=== PATIENT | female | born 1950 | race Caucasian/White ===

== ENCOUNTER → 2016-08-25 | Outpatient (CLI) | payer MEDICARE ==
--- NOTE | 2016-08-25 15:51 | US ---
EXAMINATION TYPE: US abdomen complete DATE OF EXAM: 08/25/2016 COMPARISON: NONE CLINICAL HISTORY: R10.9 Abdominal pain, K81.9 Cholecystitis. Abd pain, h/o liver cysts EXAM MEASUREMENTS: Liver Length: 13.1 cm Gallbladder Wall: 0.2 cm CBD: 0.3 cm Spleen: 7.7 cm Right Kidney: 9.6 x 3.4 x 3.8 cm Left Kidney: 8.8 x 5.1 x 6.2 cm Pancreas: wnl Liver: multiple cystic areas seen, largest left lobe cyst with septation = 2.2cm , largest right lob e = 2.4cm Gallbladder: wnl Evidence for sonographic Crabtree's sign: no CBD: wnl Spleen: limited views appeared wnl, granulomas seen Right Kidney: wnl Left Kidney: wnl Upper IVC: wnl Abd Aorta: wnl IMPRESSION: 1. Hepatic cysts. 2. Suspected calcified granuloma within the spleen
== END | disposition home or self-care (01) ==
LOC: RADUSWWP 07:51
PROVIDERS: ATTEND Family Medicine
DX: K76.89 Other specified diseases of liver (principal); R10.9 Unspecified abdominal pain
CPT/HCPCS: 76700

== ENCOUNTER 2016-09-16 20:15 | Emergency (ER) | payer MEDICARE ==
[2016-09-16] MEDS ORDERED: DIPH,PERTUS(ACELL)TETVAC-LF 0.5 ML VIAL IM ONE (21:08)
--- NOTE | 2016-09-16 21:09 | ED ---
General Adult HPI - General Chief complaint: Wound/Laceration Stated complaint: head lac Time Seen by Provider: 09/16/16 20:38 Source: patient, RN notes reviewed Mode of arrival: ambulatory Limitations: no limitations - History of Present Illness Initial comments: Patient 66-year-old female who presents emergency room today with a chief complaint of laceration top of her head. She does admit that a cabinet came off the wall. The top of the head causing laceration. She states there was no loss conscious. She denies any headache. She does admit to cut to the right side of the head. She is unsure of her tetanus status. Patient denies any recent fever, chills, shortness of breath, chest pain, back pain, abdominal pain , nausea or vomiting, numbness or tingling, dysuria or hematuria, constipation or diarrhea, headaches or visual changes, or any other complaints. - Related Data Home Medications Medication Instructions Recorded Confirmed Naproxen 500 mg PO Q12HR 01/28/14 11/08/14 ALPRAZolam [Xanax] 0.25 mg PO BID PRN 11/08/14 11/08/14 Lisinopril-Hctz 20-25 mg 20 mg PO HS 11/08/14 11/08/14 [Zestoretic 20-25] Previous Rx's Medication Instructions Recorded EPINEPHrine [Epipen 2-Maxime] 0.3 mg IM ONCE PRN #2 pkg 09/04/14 predniSONE 60 mg PO DAILY #15 tab 09/04/14 diphenhydrAMINE [Benadryl] 50 mg PO QID PRN #20 capsule 11/08/14 methylPREDNISolone [Medrol] 1 pack PO DIRECTED #1 tab.ds.pk 11/08/14 Allergies Allergy/AdvReac Type Severity Reaction Status Date / Time morphine Allergy Itching Verified 09/16/16 20:36 venom-honey bee Allergy Swelling Verified 09/16/16 20:36 [bee venom (honey bee)] Review of Systems ROS Statement: Those systems with pertinent positive or pertinent negative responses have been documented in the HPI. ROS Other: All systems not noted in ROS Statement are negative. Past Medical History Past Medical History: Hypertension History of Any Multi-Drug Resistant Organisms: None Reported Past Surgical History: Back Surgery, Joint Replacement, Orthopedic Surgery Past Psychological History: No Psychological Hx Reported Smoking Status: Never smoker Past Alcohol Use History: Daily Past Drug Use History: None Reported General Exam - General Exam Comments Initial Comments: General: The patient is awake and alert, in no distress, and does not appear acutely ill. Eye: Pupils are equal, round and reactive to light, extra-ocular movements are intact. No nystagmus. There is normal conjunctiva bilaterally. No signs of icterus. Ears, nose, mouth and throat: There are moist mucous membranes and no oral lesions. Neck: The neck is supple, there is no tenderness or JVD. Cardiovascular: There is a regular rate and rhythm. No murmur, rub or gallop is appreciated. Respiratory: Lungs are clear to auscultation, respirations are non-labored, breath sounds are equal. No wheezes, stridor, rales, or rhonchi. Musculoskeletal: Normal ROM, no tenderness. Strength 5/5. Sensation intact. Pulses equal bilaterally 2+. Neurological: A&O x 3. CN II-XII intact, There are no obvious motor or sensory deficits. Coordination appears grossly intact. Speech is normal. Skin: 2 cm linear laceration to the right side top of the head. No active bleeding. It is approximated. Psychiatric: Cooperative, appropriate mood & affect, normal judgment. Limitations: no limitations Course Vital Signs 09/16/16 20:33 Temperature 98.0 F Pulse Rate 67 Respiratory 18 Rate Blood Pressure 211/103 O2 Sat by Pulse 100 Oximetry Medical Decision Making - Medical Decision Making Options were discussed with patient about roderick here in the emergency room. She has declined. The wound edges are approximated. Patient is advised watch for any signs of infection. Advised return for any other concerns. Patient's blood pressure remains elevated here in the emergency room. She does take lisinopril hydrochlorothiazide that she takes at night. States she has not taken this time. Blood pressure remained elevated. Was discussed with patient about taking something here in emergency room. She has declined. States she would like to just take her medication she gets at home. She is advised to have close follow-up with family doctor have repeat blood pressure in the next 1-2 days. Disposition Clinical Impression: Laceration, Hypertension Disposition: HOME SELF-CARE Condition: Good Instructions: Laceration (ED) Additional Instructions: Please watch for any signs of infection which may include increased pain, swelling, redness, fever or chills. Please return to emergency room for any signs of infection. Please have blood pressure rechecked with family doctor over the next 1-2 days. Please return for any other concerns. Referrals: Yomi Montelongo DO [Primary Care Provider] - 1-2 days Time of Disposition: 21:14
[2016-09-16 21:52] VITALS: BP 127/62; PULSE 72; RESP 16; TEMP 97.8
== END 2016-09-16 21:40 | disposition home or self-care (01) ==
LOC: EC 20:15
DX: S01.01XA Laceration without foreign body of scalp, initial encounter (principal); W22.8XXA Striking against or struck by other objects, initial encounter; Z23 Encounter for immunization; Z79.899 Other long term (current) drug therapy; Z88.5 Allergy status to narcotic agent; I10 Essential (primary) hypertension
CPT/HCPCS: 90471; 90715; 99282

== ENCOUNTER 2016-09-30 17:55 | Emergency (ER) | payer MEDICARE ==
[2016-09-30 18:01] VITALS: RESP 18
[2016-09-30] MEDS ORDERED: diphenhydrAMINE 50 MG/ML 1 ML VIAL IVP STA (18:08)
[2016-09-30] MEDS ORDERED: FAMOTIDINE 20 MG/2 ML VIAL IV STA (18:08)
[2016-09-30] MEDS ORDERED: methylPREDNISolone SOD SUCCI 125 MG/2 ML VIAL IV STA (18:08)
--- NOTE | 2016-09-30 18:22 | ED ---
General Adult HPI - General Chief complaint: Allergic Reaction Stated complaint: BEE STING, ALLERGIC HAD EPI SHOT Time Seen by Provider: 09/30/16 18:08 Source: patient, RN notes reviewed Mode of arrival: wheelchair Limitations: no limitations - History of Present Illness Initial comments: Patient 66-year-old female who presents emergency room today with a chief complaint of a bee sting to the left hand that occurred just prior to arrival. She does admit to having ALLERGIC to bees. She states that she had an EpiPen at home. Patient states she was on her back area. She states she was stung through glove. She states typical off when into the house and checked her EpiPen. Patient states she is experiencing some itching to the hands. She admits to some numbness sensation to her tongue. She denies any difficulty breathing or swallowing time. Denies any other complaints. Patient denies any recent fever, chills, shortness of breath, chest pain, back pain, abdominal pain , nausea or vomiting, numbness or tingling, dysuria or hematuria, constipation or diarrhea, headaches or visual changes, or any other complaints. - Related Data Home Medications Medication Instructions Recorded Confirmed Naproxen 500 mg PO Q12HR 01/28/14 09/30/16 ALPRAZolam [Xanax] 0.5 mg PO HS 09/30/16 09/30/16 Estradiol [Estrace] 1 mg PO HS 09/30/16 09/30/16 Lisinopril [Zestril] 20 mg PO HS 09/30/16 09/30/16 Omeprazole 40 mg PO HS 09/30/16 09/30/16 Previous Rx's Medication Instructions Recorded EPINEPHrine [Epipen 2-Maxime] 0.3 mg IM ONCE PRN #2 pkg 09/04/14 EPINEPHrine [Epipen 2-Maxime] 0.3 mg IM ONCE PRN #1 ml 09/30/16 Famotidine [Pepcid] 20 mg PO BID #20 tablet 09/30/16 diphenhydrAMINE [Benadryl] 1 - 2 tab PO Q6HR PRN #30 capsule 09/30/16 predniSONE 60 mg PO DAILY 5 Days 09/30/16 Allergies Allergy/AdvReac Type Severity Reaction Status Date / Time morphine Allergy Itching Verified 09/30/16 18:39 venom-honey bee Allergy Swelling Verified 09/30/16 18:39 [bee venom (honey bee)] Review of Systems ROS Statement: Those systems with pertinent positive or pertinent negative responses have been documented in the HPI. ROS Other: All systems not noted in ROS Statement are negative. Past Medical History Past Medical History: GERD/Reflux, Hypertension History of Any Multi-Drug Resistant Organisms: None Reported Past Surgical History: Back Surgery, Joint Replacement, Orthopedic Surgery Past Psychological History: No Psychological Hx Reported Smoking Status: Never smoker Past Alcohol Use History: Daily Past Drug Use History: None Reported General Exam - General Exam Comments Initial Comments: General: The patient is awake and alert, Anxious. Eye: Pupils are equal, round and reactive to light, extra-ocular movements are intact. No nystagmus. There is normal conjunctiva bilaterally. No signs of icterus. Ears, nose, mouth and throat: There are moist mucous membranes and no oral lesions. No lip swelling. No tongue swelling. Neck: The neck is supple, there is no tenderness or JVD. Cardiovascular: There is a regular rate and rhythm. No murmur, rub or gallop is appreciated. Respiratory: Lungs are clear to auscultation, respirations are non-labored, breath sounds are equal. No wheezes, stridor, rales, or rhonchi. Musculoskeletal: Normal ROM, no tenderness. Strength 5/5. Sensation intact. Pulses equal bilaterally 2+. Neurological: A&O x 3. CN II-XII intact, There are no obvious motor or sensory deficits. Coordination appears grossly intact. Speech is normal. Skin: Skin is warm and dry and no rashes or lesions are noted. Limitations: no limitations Course Vital Signs 09/30/16 09/30/16 09/30/16 17:58 18:19 18:25 Temperature 98.2 F Pulse Rate 82 89 Respiratory 18 18 Rate Blood Pressure 173/72 179/84 O2 Sat by Pulse 99 100 Oximetry 09/30/16 19:18 Temperature Pulse Rate 71 Respiratory 18 Rate Blood Pressure 175/86 O2 Sat by Pulse 98 Oximetry Medical Decision Making - Medical Decision Making Patient reexamined at this time shows no signs of distress. Does admit that all symptoms have resolved and feeling much better here in the emergency room. She was given IV Pepcid, Benadryl, cimetidine jaw. Patient's vitals are stable at this time. Patient will be discharged home with prescription for her EpiPen. Will be given prescriptions for steroids, and advised to continue Benadryl and Pepcid. Patient advised return to emergency room if any symptoms increase or worsen or for any other concerns. Disposition Clinical Impression: Allergic reaction to bee sting Disposition: HOME SELF-CARE Condition: Good Instructions: Anaphylaxis (ED) Additional Instructions: Please use medication as discussed. Please follow-up with family doctor in the next 2 days of symptoms have not improved. Please return to emergency room if the symptoms increase or worsen or for any other concerns. Prescriptions: diphenhydrAMINE [Benadryl] 1 - 2 tab PO Q6HR PRN #30 capsule PRN Reason: Allergic Reaction EPINEPHrine [Epipen 2-Maxime] 0.3 mg IM ONCE PRN #1 ml PRN Reason: Allergic Reaction Famotidine [Pepcid] 20 mg PO BID #20 tablet predniSONE 60 mg PO DAILY 5 Days Referrals: Yomi Montelongo DO [Primary Care Provider] - 1-2 days Time of Disposition: 19:42
[2016-09-30 19:20] VITALS: PULSE 71
[2016-09-30 20:00] VITALS: TEMP 97.9
[2016-09-30 20:03] VITALS: BP 187/82
== END 2016-09-30 20:05 | disposition home or self-care (01) ==
LOC: EC 17:55
DX: T63.441A Toxic effect of venom of bees, accidental (unintentional), initial encounter (principal); I10 Essential (primary) hypertension; K21.9 Gastro-esophageal reflux disease without esophagitis; Z79.1 Long term (current) use of non-steroidal anti-inflammatories (NSAID); Z79.899 Other long term (current) drug therapy; Z88.5 Allergy status to narcotic agent; Z91.030 Bee allergy status
CPT/HCPCS: 99283; 96374; 96375 ×2; J1200; J2930

== ENCOUNTER 2016-10-31 22:34 | Inpatient (IN) | payer MEDICARE ==
[2016-10-31] MEDS ORDERED: diphenhydrAMINE 50 MG/ML 1 ML VIAL IVP STA (22:50)
[2016-10-31] MEDS ORDERED: FAMOTIDINE 20 MG/2 ML VIAL IV STA (22:50)
[2016-10-31] MEDS ORDERED: methylPREDNISolone SOD SUCCI 125 MG/2 ML VIAL IV STA (22:50)
--- NOTE | 2016-10-31 22:54 | ED ---
Allergic Reaction HPI - General Chief complaint: Allergic Reaction Stated complaint: allergic reaction Time Seen by Provider: 10/31/16 22:41 Source: patient Mode of arrival: wheelchair Limitations: no limitations - History of Present Illness Initial Comments: This patient is 66-year-old woman who presents with complaint of itching to the bilateral upper extremities that she states started about 20-30 minutes ago. She states feels similar to the ALLERGY she gets when she has a bee sting though she denies being stung. She is not sure what exposures she may have had. The patient does state that she has had previous anaphylactic reaction to bee sting but again was not stung tonight. Patient denies cough, dyspnea, or wheezing. No swelling of the tongue or throat. MD Complaint: allergic reaction, hives -: minutes(s) Exposure: unknown Symptoms: rash, itching Severity: moderate Treatment Prior to Arrival: none Previous Allergy History: prior ED visit(s) - Related Data Home Medications Medication Instructions Recorded Confirmed Naproxen 500 mg PO Q12HR 01/28/14 11/01/16 ALPRAZolam [Xanax] 0.5 mg PO HS 09/30/16 11/01/16 Estradiol [Estrace] 1 mg PO HS 09/30/16 11/01/16 Lisinopril [Zestril] 20 mg PO HS 09/30/16 11/01/16 Omeprazole 40 mg PO HS 09/30/16 11/01/16 HYDROcodone/APAP 5-325MG [[place] 1 tab PO Q8H PRN 10/31/16 11/01/16 5-325] Previous Rx's Medication Instructions Recorded EPINEPHrine [Epipen 2-Maxime] 0.3 mg IM ONCE PRN #2 pkg 09/04/14 Allergies Allergy/AdvReac Type Severity Reaction Status Date / Time morphine Allergy Itching Verified 11/01/16 14:56 venom-honey bee Allergy Anaphylaxis Verified 11/01/16 14:56 [bee venom (honey bee)] Review of Systems ROS Statement: Those systems with pertinent positive or pertinent negative responses have been documented in the HPI. ROS Other: All systems not noted in ROS Statement are negative. Constitutional: Denies: fever, chills Respiratory: Denies: cough, dyspnea, wheezes Cardiovascular: Denies: chest pain, palpitations Gastrointestinal: Denies: abdominal pain, vomiting, diarrhea Skin: Reports: as per HPI, rash, pruritus Neurological: Denies: headache, weakness, numbness Past Medical History Past Medical History: GERD/Reflux, Hypertension History of Any Multi-Drug Resistant Organisms: None Reported Past Surgical History: Back Surgery, Joint Replacement, Orthopedic Surgery Past Psychological History: No Psychological Hx Reported Smoking Status: Never smoker Past Alcohol Use History: Daily Past Drug Use History: None Reported - Past Family History Mother Family Medical History: Diabetes Mellitus Additional Family Medical History / Comment(s): HEART DISEASE Son(s) Family Medical History: Diabetes Mellitus General Exam Limitations: no limitations General appearance: alert, in no apparent distress Head exam: Present: atraumatic, normocephalic ENT exam: Present: normal oropharynx, mucous membranes moist Neck exam: Present: normal inspection, full ROM Respiratory exam: Present: normal lung sounds bilaterally. Absent: respiratory distress, wheezes, rales, rhonchi, stridor Cardiovascular Exam: Present: regular rate, normal rhythm, normal heart sounds. Absent: systolic murmur, diastolic murmur, rubs, gallop Neurological exam: Present: alert Skin exam: Present: warm, dry, intact, urticaria (Mainly to the right arm, medial aspect of the upper portion of the arm. Patient has some excoriations there and is scratching during the exam.). Absent: cyanosis, diaphoretic, petechiae, pallor, mottled Course Vital Signs 10/31/16 11/01/16 11/01/16 22:36 00:38 01:00 Temperature 98.6 F Pulse Rate 100 72 64 Respiratory 22 16 14 Rate Blood Pressure 159/89 93/51 138/65 O2 Sat by Pulse 97 100 100 Oximetry 11/01/16 11/01/16 11/01/16 02:00 04:00 05:43 Temperature 98.8 F Pulse Rate 69 62 59 L Respiratory 14 14 16 Rate Blood Pressure 152/69 168/74 188/65 O2 Sat by Pulse 100 98 98 Oximetry Medical Decision Making - Medical Decision Making Patient is a 66-year-old woman who presented with chief complaint that she felt she was having ALLERGIC reaction. She had IV established and was given medications including antihistamine and steroid. The patient's blood pressure subsequently decreased to the 70s over 40s and she had dose of epinephrine. Following this episode she had some abdominal pain and did pass some small amount of dark blood. Computed tomography scan of the abdomen was obtained which does not reveal source of the bleeding. Patient admitted with GI consultation. Her blood pressure has stabilized following treatment. - Lab Data Result diagrams: 11/01/16 15:56 11/01/16 15:56 Lab Results 11/01/16 11/01/16 11/01/16 Range/Units 00:19 00:19 01:33 WBC (3.8-10.6) k/uL RBC (3.80-5.40) m/uL Hgb (11.4-16.0) gm/dL Hct (34.0-46.0) % MCV (80.0-100.0) fL MCH (25.0-35.0) pg MCHC (31.0-37.0) g/dL RDW (11.5-15.5) % Plt Count (150-450) k/uL Neutrophils % (Manual) % Band Neutrophils % % Lymphocytes % (Manual) % Monocytes % (Manual) % Eosinophils % (Manual) % Neutrophils # (Manual) (1.3-7.7) k/uL Lymphocytes # (Manual) (1.0-4.8) k/uL Monocytes # (Manual) (0-1.0) k/uL Eosinophils # (Manual) (0-0.7) k/uL Nucleated RBCs (0-0) /100 WBC Manual Slide Review Macrocytosis Sodium 141 (137-145) mmol/L Potassium 3.4 L (3.5-5.1) mmol/L Chloride 112 H (98-107) mmol/L Carbon Dioxide 15 L (22-30) mmol/L Anion Gap 14 mmol/L BUN 18 H (7-17) mg/dL Creatinine 0.80 (0.52-1.04) mg/dL Est GFR (MDRD) Af Amer >60 (>60 ml/min/1.73 sqM) Est GFR (MDRD) Non-Af >60 (>60 ml/min/1.73 sqM) Glucose 135 H (74-99) mg/dL Plasma Lactic Acid Alfonso (0.7-2.0) mmol/L Calcium 8.5 (8.4-10.2) mg/dL Total Bilirubin 0.5 (0.2-1.3) mg/dL AST 49 H (14-36) U/L ALT 40 (9-52) U/L Alkaline Phosphatase 111 (38-126) U/L Troponin I <0.012 (0.000-0.034) ng/mL Total Protein 5.9 L (6.3-8.2) g/dL Albumin 3.3 L (3.5-5.0) g/dL Urine Color Urine Appearance (Clear) Urine pH (5.0-8.0) Ur Specific [place] (1.001-1.035) Urine Protein (Negative) Urine Glucose (UA) (Negative) Urine Ketones (Negative) Urine Blood (Negative) Urine Nitrite (Negative) Urine Bilirubin (Negative) Urine Urobilinogen (<2.0) mg/dL Ur Leukocyte Esterase (Negative) Urine RBC (0-5) /hpf Urine WBC (0-5) /hpf Ur Squamous Epith Cells (0-4) /hpf Urine Bacteria (None) /hpf Urine Mucus (None) /hpf Stool Occult Blood Positive H (Negative) 11/01/16 11/01/16 11/01/16 Range/Units 02:39 02:39 04:15 WBC 15.4 H (3.8-10.6) k/uL RBC 4.03 (3.80-5.40) m/uL Hgb 13.6 (11.4-16.0) gm/dL Hct 41.1 (34.0-46.0) % MCV 102.0 H (80.0-100.0) fL MCH 33.8 (25.0-35.0) pg MCHC 33.1 (31.0-37.0) g/dL RDW 12.8 (11.5-15.5) % Plt Count 217 (150-450) k/uL Neutrophils % (Manual) 71 % Band Neutrophils % 15 % Lymphocytes % (Manual) 5 % Monocytes % (Manual) 9 % Eosinophils % (Manual) 1 % Neutrophils # (Manual) 13.20 H (1.3-7.7) k/uL Lymphocytes # (Manual) 0.77 L (1.0-4.8) k/uL Monocytes # (Manual) 1.39 H (0-1.0) k/uL Eosinophils # (Manual) 0.15 (0-0.7) k/uL Nucleated RBCs 0 (0-0) /100 WBC Manual Slide Review Performed Macrocytosis Slight Sodium (137-145) mmol/L Potassium (3.5-5.1) mmol/L Chloride (98-107) mmol/L Carbon Dioxide (22-30) mmol/L Anion Gap mmol/L BUN (7-17) mg/dL Creatinine (0.52-1.04) mg/dL Est GFR (MDRD) Af Amer (>60 ml/min/1.73 sqM) Est GFR (MDRD) Non-Af (>60 ml/min/1.73 sqM) Glucose (74-99) mg/dL Plasma Lactic Acid Alfonso 1.3 (0.7-2.0) mmol/L Calcium (8.4-10.2) mg/dL Total Bilirubin (0.2-1.3) mg/dL AST (14-36) U/L ALT (9-52) U/L Alkaline Phosphatase (38-126) U/L Troponin I (0.000-0.034) ng/mL Total Protein (6.3-8.2) g/dL Albumin (3.5-5.0) g/dL Urine Color Light Red Urine Appearance Clear (Clear) Urine pH 6.0 (5.0-8.0) Ur Specific [place] 1.007 (1.001-1.035) Urine Protein 1+ H (Negative) Urine Glucose (UA) Negative (Negative) Urine Ketones 1+ H (Negative) Urine Blood Large H (Negative) Urine Nitrite Negative (Negative) Urine Bilirubin Negative (Negative) Urine Urobilinogen <2.0 (<2.0) mg/dL Ur Leukocyte Esterase Small H (Negative) Urine RBC >182 H (0-5) /hpf Urine WBC 13 H (0-5) /hpf Ur Squamous Epith Cells 1 (0-4) /hpf Urine Bacteria Rare H (None) /hpf Urine Mucus Rare H (None) /hpf Stool Occult Blood (Negative) - EKG Data -: EKG Interpreted by Me EKG shows normal: sinus rhythm, axis (Normal), intervals (The QTC is 483 ms, prolonged period), QRS complexes (Normal) Rate: normal (Rate 70 bpm) Interpretation: other (T inversions in lead V3) Critical Care Time Critical Care Time: Yes (40 minutes) Disposition Clinical Impression: Anaphylaxis, Abdominal pain, GI bleeding Disposition: ADMITTED IP TO THIS HOSP Condition: Fair
[2016-10-31] MEDS ORDERED: EPINEPHrine (Auto Inject) 0.3 MG/0.3 ML SYRINGE IM STA (23:14)
[2016-10-31] MEDS ORDERED: SODIUM CHLORIDE 0.9% 1,000 ML IV ONE (23:15)
--- NOTE | 2016-11-01 00:09 | XR ---
EXAM: XR Chest, 1 View CLINICAL HISTORY: Reason: hypotension TECHNIQUE: Frontal view of the chest. COMPARISON: No relevant prior studies available. FINDINGS: Lungs: Unremarkable. No consolidation. Pleural space: Unremarkable. No pneumothorax. Heart: Unremarkable. No cardiomegaly. Mediastinum: Unremarkable. Bones/joints: Unremarkable. IMPRESSION: Normal chest x-ray.
[2016-11-01 01:17] LABS: ALT 40 U/L (9-52); AST 49 U/L (14-36); Alkaline Phosphatase 111 U/L (38-126); Anion Gap 14 mmol/L; Blood Urea Nitrogen 18 mg/dL (7-17); Calcium 8.5 mg/dL (8.4-10.2); Carbon Dioxide 15 mmol/L (22-30); Chloride 112 mmol/L (98-107); Glucose 135 mg/dL (74-99); Non-African American GFR(MDRD) >60 (>60 ml/min/1.73 sqM); Potassium 3.4 mmol/L (3.5-5.1); Sodium 141 mmol/L (137-145); Total Bilirubin 0.5 mg/dL (0.2-1.3); Total Protein 5.9 g/dL (6.3-8.2)
[2016-11-01] MEDS ORDERED: IOHEXOL 350 MG/ML 25 ML BOTTLE (ORAL USE) PO PRN (02:23)
[2016-11-01] MEDS ORDERED: RX INFO: IV CONTRAST WAS GIVEN 1 EACH MISC MISCELLANE PRN (02:23)
[2016-11-01 03:00] LABS: CH 33.2; CHCM 32.7; HCT 41.1 % (34.0-46.0); HDW 2.29; HGB 13.6 gm/dL (11.4-16.0); Immature Gran Flag Slight; MCH 33.8 pg (25.0-35.0); MCHC 33.1 g/dL (31.0-37.0); Macrocytosis Slight; RBC 4.03 m/uL (3.80-5.40); RDW 12.8 % (11.5-15.5); WBC 15.4 k/uL (3.8-10.6); WBC (Perox) 16.87
[2016-11-01 03:14] LABS: Add Differential Manual Differential
[2016-11-01 03:17] LABS: Nucleated Red Blood Cells 0 /100 WBC (0-0)
[2016-11-01 03:18] LABS: Band Neutrophils % 15 %; Manual Review Performed; Total Cells Counted 200
[2016-11-01 04:32] LABS: Appearance,Urine Clear (Clear); Bacteria,Urine Rare /hpf; Bilirubin,Urine Negative (Negative); Glucose,Urine (UA) Negative (Negative); Ketones,Urine 1+ (Negative); Leukocyte Esterase,Urine Small (Negative); Mucus,Urine Rare /hpf; Nitrite,Urine Negative (Negative); Particle Count 14847; Protein,Urine 1+ (Negative); RBC,Urine >182 /hpf (0-5); Specific Gravity,Urine 1.007 (1.001-1.035); Squamous Epithelial Cell,Urine 1 /hpf (0-4); UA Billing (MACRO vs. MICRO) MICRO; Urobilinogen,Urine <2.0 mg/dL (<2.0); WBC,Urine 13 /hpf (0-5)
--- NOTE | 2016-11-01 04:43 | CT ---
EXAM: CT Abdomen and Pelvis With Intravenous Contrast CLINICAL HISTORY: Reason: Pain TECHNIQUE: Axial computed tomography images of the abdomen and pelvis with intravenous contrast. DLP is 432.70 mGy-cm. This CT exam was performed using one or more of the following dose reduction techniques: automated exposure control, adjustment of the mA and/or kV according to patient size, and/or use of iterative reconstruction technique. CONTRAST: 50 mL of omni 350 administered intravenously. COMPARISON: No relevant prior studies available. FINDINGS: Lower thorax: No acute findings. ABDOMEN: Liver: Multiple hypoattenuating foci scattered in the right and left hepatic lobes which may represent hepatic cysts. Gallbladder and bile ducts: Unremarkable. No calcified stones. No ductal dilation. Pancreas: Unremarkable. No mass. No ductal dilation. Spleen: Unremarkable. No splenomegaly. Adrenals: Unremarkable. No mass. Kidneys and ureters: Unremarkable. No solid mass. No hydronephrosis. Stomach and bowel: Unremarkable. No obstruction. No mucosal thickening. Appendix: No findings to suggest acute appendicitis. PELVIS: Bladder: Unremarkable. No mass. Reproductive: Unremarkable as visualized. ABDOMEN and PELVIS: Intraperitoneal space: Unremarkable. No free air. No significant fluid collection. Bones/joints: No acute fracture. No dislocation. Soft tissues: Unremarkable. Vasculature: Unremarkable. No abdominal aortic aneurysm. Lymph nodes: Unremarkable. No enlarged lymph nodes. IMPRESSION: 1. No acute findings. 2. Multiple hypoattenuating lesions throughout the liver. These may represent hepatic cysts or focal fatty metamorphosis. Ultrasound or MRI may be helpful
[2016-11-01] MEDS ORDERED: NALOXONE 0.4 MG/ML 1 ML VIAL IV PRN (05:31)
[2016-11-01] MEDS ORDERED: ONDANSETRON 4 MG/2 ML VIAL IVP PRN (05:31)
[2016-11-01] MEDS ORDERED: ACETAMINOPHEN TAB 325 MG TAB PO PRN (05:31)
[2016-11-01] MEDS: SODIUM CHLORIDE 0.9% 1,000 ML IV SCH ×3 (05:41→22:20)
[2016-11-01] MEDS ORDERED: DICYCLOMINE 20 MG TAB PO STA (05:50)
[2016-11-01] MEDS ORDERED: FAMOTIDINE 20 MG TAB PO SCH (09:00)
--- NOTE | 2016-11-01 11:37 | US ---
EXAMINATION TYPE: US abdomen complete DATE OF EXAM: 11/01/2016 COMPARISON: Prior US 08/25/[address] 11/01/2016 CLINICAL HISTORY: abd pain. History of known liver cysts EXAM MEASUREMENTS: Liver Length: 12.3 cm Gallbladder Wall: 0.2 cm CBD: 0.3 cm Spleen: 7.9 cm Right Kidney: 9.1 x 3.2 x 5.3 cm Left Kidney: 9.6 x 5.5 x 5.5 cm Pancreas: Obscured by bowel gas Liver: Innumerable cystic areas visualized throughout the liver. Largest visualized in the left lobe measuring 2.0 x 1.7 x 2.1 cm Gallbladder: wnl Evidence for sonographic Crabtree's sign: No CBD: wnl Spleen: wnl Right Kidney: Cyst visualized upper pole measuring 0.9 x 0.7 x 0.7 cm Left Kidney: wnl Upper IVC: wnl Abd Aorta: Atherosclerotic changes IMPRESSION: 1. Numerous hepatic cysts. 2. Tiny simple appearing upper pole less than 1 cm renal cyst.
[2016-11-01 15:32] VITALS: BMI 21.7
--- NOTE | 2016-11-01 15:33 | P.GSCN ---
<Catherine Cates - Last Filed: 11/01/16 15:40> History of Present Illness Consult date: 11/01/16 Reason for Consult: Abdominal pain bloody stool History of present illness: 66-year-old female who is being seen at the request of the attending for a surgical eval for abdominal pain who presented to the emergency room with a suspected ALLERGIC reaction unknown etiology who developed after being treated for a questionable anaphylactic reaction abdominal pain with bloody stool patient stated that the symptoms started about 30 minutes before coming into the emergency room she had been working in the yard clearing some Ultrom[employer]es was not certain if she got bit by something shortly thereafter noted tingling in the bilateral hands tingling to the bilateral feet as well. Patient states she became concerned this felt similar to when she was stung by a bee in the past. Patient denied any swelling of the tongue or throat. There was no cough there was no audible wheezing. Subsequent the patient did present to the emergency room after being treated in the emergency room the patient developed an episode of hypotension systolic blood pressure in the 70s patient reportedly was given an antihistamine Benadryl with steroids. Patient stated thereafter she developed the pain in the small amount of dark red blood. Patient had a CAT scan of the abdomen did not show any acute source of bleeding. The CAT scan of the abdomen and pelvis with IV contrast reviewing the report no evidence of acute appendicitis gallbladder and bile duct unremarkable pancreas unremarkable the liver did show multiple hypoattenuating foci may represent hepatic cyst in the right and left lobe of the liver.. Additionally the patient did have an ultrasound of the abdomen done to showed cyst visualized throughout the liver. The largest was in the left lobe measuring 2 cm. Otherwise unremarkable study. Patient gives a history of having 2 glasses of wine daily. Additionally patient stated her last colonoscopy was 15 years ago was told there were no acute findings. Patient states she has not had similar of passing blood in her stool. Stool was obtained was negative for C. diff was positive for occult blood Patient does give a history of having esophageal reflex symptoms has not had an EGD in the past states takes Prilosec 40 mg daily. Review of Systems Essentially unremarkable except as mentioned in the present illness Past Medical History Past Medical History: GERD/Reflux, Hypertension History of Any Multi-Drug Resistant Organisms: None Reported Past Surgical History: Back Surgery, Joint Replacement, Orthopedic Surgery Past Psychological History: No Psychological Hx Reported Smoking Status: Never smoker Past Alcohol Use History: Daily Past Drug Use History: None Reported Medications and Allergies Home Medications Medication Instructions Recorded Confirmed Type Naproxen 500 mg PO Q12HR 01/28/14 11/01/16 History ALPRAZolam [Xanax] 0.5 mg PO HS 09/30/16 11/01/16 History Estradiol [Estrace] 1 mg PO HS 09/30/16 11/01/16 History Lisinopril [Zestril] 20 mg PO HS 09/30/16 11/01/16 History Omeprazole 40 mg PO HS 09/30/16 11/01/16 History HYDROcodone/APAP 5-325MG [[place] 1 tab PO Q8H PRN 10/31/16 11/01/16 History 5-325] Allergies Allergy/AdvReac Type Severity Reaction Status Date / Time morphine Allergy Itching Verified 11/01/16 14:56 venom-honey bee Allergy Anaphylaxis Verified 11/01/16 14:56 [bee venom (honey bee)] Surgical - Exam Vital Signs Temp Pulse Resp BP Pulse Ox 98.6 F 100 22 159/89 97 10/31/16 22:36 10/31/16 22:36 10/31/16 22:36 10/31/16 22:36 10/31/16 22:36 GENERAL APPEARANCE: 66-year-old female patient is alert, oriented 3, in no acute distress. VITAL SIGNS: Reviewed HEENT: Head is normocephalic and atraumatic. Pupils are equal and reactive. The nares are patent. Oropharynx is clear without lesions. NECK: Supple without lymphadenopathy. Traches midline. HEART: S1, S2. Regular rate and rhythm. No murmur noted LUNGS: No crackles or wheezes are heard. On room air to 97% ABDOMEN: Soft, nontender, nondistended with good bowel sounds. No peritoneal signs. No palpable organomegaly or masses. EXTREMITIES: Normal skin color and turgor. No cyanosis, rash, ulceration, clubbing or edema. Radial pedal pulses are 2/4 bilaterally. NEUROLOGICAL: No focal deficits. Strength and sensation are grossly intact. Skin there is a well-healed scar to the left knee. The right lower lateral extremity purple ecchymotic bruise noted there are multiple scratches to the forearms no skin rash noted Results - Labs 11/01/16 02:39 11/01/16 00:19 Abnormal Lab Results - Last 24 Hours (Table) 11/01/16 11/01/16 11/01/16 Range/Units 00:19 01:33 02:39 WBC 15.4 H (3.8-10.6) k/uL MCV 102.0 H (80.0-100.0) fL Neutrophils # (Manual) 13.20 H (1.3-7.7) k/uL Lymphocytes # (Manual) 0.77 L (1.0-4.8) k/uL Monocytes # (Manual) 1.39 H (0-1.0) k/uL Potassium 3.4 L (3.5-5.1) mmol/L Chloride 112 H (98-107) mmol/L Carbon Dioxide 15 L (22-30) mmol/L BUN 18 H (7-17) mg/dL Glucose 135 H (74-99) mg/dL AST 49 H (14-36) U/L Total Protein 5.9 L (6.3-8.2) g/dL Albumin 3.3 L (3.5-5.0) g/dL Urine Protein (Negative) Urine Ketones (Negative) Urine Blood (Negative) Ur Leukocyte Esterase (Negative) Urine RBC (0-5) /hpf Urine WBC (0-5) /hpf Urine Bacteria (None) /hpf Urine Mucus (None) /hpf Stool Occult Blood Positive H (Negative) 11/01/16 Range/Units 04:15 WBC (3.8-10.6) k/uL MCV (80.0-100.0) fL Neutrophils # (Manual) (1.3-7.7) k/uL Lymphocytes # (Manual) (1.0-4.8) k/uL Monocytes # (Manual) (0-1.0) k/uL Potassium (3.5-5.1) mmol/L Chloride (98-107) mmol/L Carbon Dioxide (22-30) mmol/L BUN (7-17) mg/dL Glucose (74-99) mg/dL AST (14-36) U/L Total Protein (6.3-8.2) g/dL Albumin (3.5-5.0) g/dL Urine Protein 1+ H (Negative) Urine Ketones 1+ H (Negative) Urine Blood Large H (Negative) Ur Leukocyte Esterase Small H (Negative) Urine RBC >182 H (0-5) /hpf Urine WBC 13 H (0-5) /hpf Urine Bacteria Rare H (None) /hpf Urine Mucus Rare H (None) /hpf Stool Occult Blood (Negative) Diabetes panel 11/01/16 Range/Units 00:19 Sodium 141 (137-145) mmol/L Potassium 3.4 L (3.5-5.1) mmol/L Chloride 112 H (98-107) mmol/L Carbon Dioxide 15 L (22-30) mmol/L BUN 18 H (7-17) mg/dL Creatinine 0.80 (0.52-1.04) mg/dL Glucose 135 H (74-99) mg/dL Calcium 8.5 (8.4-10.2) mg/dL AST 49 H (14-36) U/L ALT 40 (9-52) U/L Alkaline Phosphatase 111 (38-126) U/L Total Protein 5.9 L (6.3-8.2) g/dL Albumin 3.3 L (3.5-5.0) g/dL Calcium panel 11/01/16 Range/Units 00:19 Calcium 8.5 (8.4-10.2) mg/dL Albumin 3.3 L (3.5-5.0) g/dL Pituitary panel 11/01/16 Range/Units 00:19 Sodium 141 (137-145) mmol/L Potassium 3.4 L (3.5-5.1) mmol/L Chloride 112 H (98-107) mmol/L Carbon Dioxide 15 L (22-30) mmol/L BUN 18 H (7-17) mg/dL Creatinine 0.80 (0.52-1.04) mg/dL Glucose 135 H (74-99) mg/dL Calcium 8.5 (8.4-10.2) mg/dL Adrenal panel 11/01/16 Range/Units 00:19 Sodium 141 (137-145) mmol/L Potassium 3.4 L (3.5-5.1) mmol/L Chloride 112 H (98-107) mmol/L Carbon Dioxide 15 L (22-30) mmol/L BUN 18 H (7-17) mg/dL Creatinine 0.80 (0.52-1.04) mg/dL Glucose 135 H (74-99) mg/dL Calcium 8.5 (8.4-10.2) mg/dL Total Bilirubin 0.5 (0.2-1.3) mg/dL AST 49 H (14-36) U/L ALT 40 (9-52) U/L Alkaline Phosphatase 111 (38-126) U/L Total Protein 5.9 L (6.3-8.2) g/dL Albumin 3.3 L (3.5-5.0) g/dL Assessment and Plan Plan: Impression Present on admission tingling to the bilateral hands and bilateral feet suspect due to ALLERGIC reaction unknown etiology Present on admission abdominal pain with bloody stool with stool positive for occult blood unclear etiology History of esophageal reflux disease An episode of hypotension after receiving antihistamine and steroid in the ER resolved Osteoarthritis on naproxen Anxiety disorder nonspecified 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 Present on admission hypokalemia Leukocytosis suspect due to steroid given in the emergency room Hypertension urgency Chronic back pain opiate dependency Plan Hydralazine 20 mg IV every 6 hours when necessary if systolic blood pressure greater than 160 Repeat labs now address as indicated hold naproxen Monitor H&H DVT and GI prophylaxis Further surgical recommendations pending Repeat labs in the morning May benefit from an EGD and colonoscopy Await GI service eval Thank you for allowing us to participate in the surgical management of your patient further surgical recommendations pending The above impression and plan of care have been discussed and directed by signing physician. Catherine Cates nurse practitioner acting as scribe for signing physician. <Duncan Newman - Last Filed: 11/02/16 08:03> Surgical - Exam Vital Signs Temp Pulse Resp BP Pulse Ox 98.6 F 100 22 159/89 97 10/31/16 22:36 10/31/16 22:36 10/31/16 22:36 10/31/16 22:36 10/31/16 22:36 Results - Labs 11/02/16 06:41 11/02/16 06:41 Abnormal Lab Results - Last 24 Hours (Table) 11/01/16 11/01/16 11/02/16 Range/Units 15:56 15:56 06:41 WBC 14.6 H 10.8 H (3.8-10.6) k/uL RBC 3.50 L (3.80-5.40) m/uL MCV 102.3 H 103.8 H (80.0-100.0) fL Neutrophils # 12.6 H 8.7 H (1.3-7.7) k/uL Lymphocytes # 0.9 L (1.0-4.8) k/uL Sodium 136 L (137-145) mmol/L Chloride (98-107) mmol/L Carbon Dioxide (22-30) mmol/L Glucose 116 H (74-99) mg/dL Calcium 8.1 L (8.4-10.2) mg/dL AST 37 H (14-36) U/L Total Protein 6.0 L (6.3-8.2) g/dL Albumin (3.5-5.0) g/dL 11/02/16 Range/Units 06:41 WBC (3.8-10.6) k/uL RBC (3.80-5.40) m/uL MCV (80.0-100.0) fL Neutrophils # (1.3-7.7) k/uL Lymphocytes # (1.0-4.8) k/uL Sodium (137-145) mmol/L Chloride 109 H (98-107) mmol/L Carbon Dioxide 20 L (22-30) mmol/L Glucose (74-99) mg/dL Calcium 7.6 L (8.4-10.2) mg/dL AST (14-36) U/L Total Protein 4.9 L (6.3-8.2) g/dL Albumin 2.6 L (3.5-5.0) g/dL Microbiology - Last 24 Hours (Table) 11/01/16 02:39 Blood Culture Gram Stain - Preliminary Blood 11/01/16 02:39 Blood Culture - Preliminary Blood Diabetes panel 11/01/16 11/02/16 Range/Units 15:56 06:41 Sodium 136 L 137 (137-145) mmol/L Potassium 4.3 3.6 (3.5-5.1) mmol/L Chloride 104 109 H (98-107) mmol/L Carbon Dioxide 24 20 L (22-30) mmol/L BUN 11 8 (7-17) mg/dL Creatinine 0.56 0.62 (0.52-1.04) mg/dL Glucose 116 H 75 (74-99) mg/dL Calcium 8.1 L 7.6 L (8.4-10.2) mg/dL AST 37 H 21 (14-36) U/L ALT 38 31 (9-52) U/L Alkaline Phosphatase 67 54 (38-126) U/L Total Protein 6.0 L 4.9 L (6.3-8.2) g/dL Albumin 3.5 2.6 L (3.5-5.0) g/dL Calcium panel 11/01/16 11/02/16 Range/Units 15:56 06:41 Calcium 8.1 L 7.6 L (8.4-10.2) mg/dL Albumin 3.5 2.6 L (3.5-5.0) g/dL Pituitary panel 11/01/16 11/02/16 Range/Units 15:56 06:41 Sodium 136 L 137 (137-145) mmol/L Potassium 4.3 3.6 (3.5-5.1) mmol/L Chloride 104 109 H (98-107) mmol/L Carbon Dioxide 24 20 L (22-30) mmol/L BUN 11 8 (7-17) mg/dL Creatinine 0.56 0.62 (0.52-1.04) mg/dL Glucose 116 H 75 (74-99) mg/dL Calcium 8.1 L 7.6 L (8.4-10.2) mg/dL Adrenal panel 11/01/16 11/02/16 Range/Units 15:56 06:41 Sodium 136 L 137 (137-145) mmol/L Potassium 4.3 3.6 (3.5-5.1) mmol/L Chloride 104 109 H (98-107) mmol/L Carbon Dioxide 24 20 L (22-30) mmol/L BUN 11 8 (7-17) mg/dL Creatinine 0.56 0.62 (0.52-1.04) mg/dL Glucose 116 H 75 (74-99) mg/dL Calcium 8.1 L 7.6 L (8.4-10.2) mg/dL Total Bilirubin 0.6 0.5 (0.2-1.3) mg/dL AST 37 H 21 (14-36) U/L ALT 38 31 (9-52) U/L Alkaline Phosphatase 67 54 (38-126) U/L Total Protein 6.0 L 4.9 L (6.3-8.2) g/dL Albumin 3.5 2.6 L (3.5-5.0) g/dL Assessment and Plan Plan: GI bleed. Patient may have ischemic colitis. She'll be observed. We'll plan for outpatient EGD colonoscopy.
[2016-11-01] MEDS ORDERED: EPINEPHrine (Auto Inject) 0.3 MG/0.3 ML SYRINGE IM PRN (15:41)
[2016-11-01] MEDS ORDERED: hydrALAZINE HCL 20 MG/ML 1 ML VIAL IV PRN (15:43)
[2016-11-01 16:35] LABS: Basophils % (A) 0 %; CH 33.6; Eosinophils % (A) 0 %; HDW 2.26; HGB 13.8 gm/dL (11.4-16.0); Luc # (Auto) 0.11; Luc % (Auto) 1; Lymphocytes # (A) 0.9 k/uL (1.0-4.8); Lymphocytes % (A) 6 %; MCH 34.3 pg (25.0-35.0); MCHC 33.5 g/dL (31.0-37.0); MCV 102.3 fL (80.0-100.0); Macrocytosis Slight; Mean Platelet Volume 8.1; Monocytes # (A) 0.9 k/uL (0-1.0); Monocytes % (A) 6 %; Neutrophils # (A) 12.6 k/uL (1.3-7.7); Neutrophils % (A) 86 %; RBC 4.01 m/uL (3.80-5.40); RDW 13.1 % (11.5-15.5); WBC 14.6 k/uL (3.8-10.6); WBC (Perox) 14.74
[2016-11-01 16:45] LABS: ALT 38 U/L (9-52); AST 37 U/L (14-36); Alkaline Phosphatase 67 U/L (38-126); Anion Gap 8 mmol/L; Blood Urea Nitrogen 11 mg/dL (7-17); Calcium 8.1 mg/dL (8.4-10.2); Carbon Dioxide 24 mmol/L (22-30); Chloride 104 mmol/L (98-107); Glucose 116 mg/dL (74-99); Non-African American GFR(MDRD) >60 (>60 ml/min/1.73 sqM); Potassium 4.3 mmol/L (3.5-5.1); Sodium 136 mmol/L (137-145); Total Bilirubin 0.6 mg/dL (0.2-1.3)
[2016-11-01] MEDS: LISINOPRIL 20 MG TAB PO SCH (20:22)
[2016-11-01] MEDS: HYDROcodone/APAP 5-325MG 1 EACH TAB PO PRN (20:22)
[2016-11-01] MEDS: PANTOPRAZOLE 40 MG/10 ML VIAL IVP SCH (20:22)
[2016-11-01] MEDS: ESTRADIOL 0.5 MG TAB PO SCH (20:23)
[2016-11-01] MEDS: ALPRAZolam 0.5 MG TAB PO SCH (20:31)
[2016-11-02] MEDS: LEVOFLOXACIN 750MG-D5W PMX 750 MG in DEXTROSE/WATER 1 150ML.BAG IVPB SCH ×2 (00:19→23:11)
[2016-11-02] MEDS: SODIUM CHLORIDE 0.9% 1,000 ML IV SCH ×3 (05:52→23:11)
[2016-11-02 07:21] LABS: Basophils % (A) 0 %; CH 33.2; CHCM 32.2; Eosinophils # (A) 0.1 k/uL (0-0.7); Eosinophils % (A) 1 %; HCT 36.3 % (34.0-46.0); HDW 2.28; HGB 11.7 gm/dL (11.4-16.0); Luc # (Auto) 0.16; Luc % (Auto) 2; Lymphocytes # (A) 1.2 k/uL (1.0-4.8); Lymphocytes % (A) 12 %; MCH 33.5 pg (25.0-35.0); MCHC 32.2 g/dL (31.0-37.0); MCV 103.8 fL (80.0-100.0); Macrocytosis Slight; Mean Platelet Volume 7.7; Monocytes # (A) 0.6 k/uL (0-1.0); Monocytes % (A) 5 %; Neutrophils # (A) 8.7 k/uL (1.3-7.7); Neutrophils % (A) 81 %; RDW 13.1 % (11.5-15.5); WBC 10.8 k/uL (3.8-10.6); WBC (Perox) 11.04
[2016-11-02 07:49] LABS: ALT 31 U/L (9-52); AST 21 U/L (14-36); Alkaline Phosphatase 54 U/L (38-126); Anion Gap 8 mmol/L; Blood Urea Nitrogen 8 mg/dL (7-17); Calcium 7.6 mg/dL (8.4-10.2); Carbon Dioxide 20 mmol/L (22-30); Chloride 109 mmol/L (98-107); Glucose 75 mg/dL (74-99); Non-African American GFR(MDRD) >60 (>60 ml/min/1.73 sqM); Potassium 3.6 mmol/L (3.5-5.1); Sodium 137 mmol/L (137-145); Total Bilirubin 0.5 mg/dL (0.2-1.3); Total Protein 4.9 g/dL (6.3-8.2)
[2016-11-02] MEDS: PANTOPRAZOLE 40 MG/10 ML VIAL IVP SCH ×2 (08:16→20:25)
[2016-11-02] MEDS: HYDROcodone/APAP 5-325MG 1 EACH TAB PO PRN ×2 (10:17→19:24)
--- NOTE | 2016-11-02 10:25 | P.PN ---
Subjective 66-year-old female being seen on rounds this morning. Patient states that she has had a couple bloody stools this morning with abdominal cramping "but it is getting better" hemoglobin this morning 11.7. The admitting hemoglobin was 13.6. Patient states is less cramping denies any nausea or vomiting currently is denying any tingling or numbness to the hands were to the feet. Patients being followed by surgical service at the request of the attending with no evidence of an acute abdomen. Additionally patients being seen by gastroenterology service were recommending proceed with endoscopic on . Patient continues to report having intermittent episodes of cramping. Did note the preliminary blood cultures are showing gram-positive bacilli Objective - Vital Signs Vital signs: Vital Signs Temp 97.2 F L 11/02/16 07:00 Pulse 67 11/02/16 07:00 Resp 16 11/02/16 07:00 BP 147/73 11/02/16 07:00 Pulse Ox 98 11/02/16 07:00 Intake & Output 11/01/16 11/02/16 11/02/16 18:59 06:59 18:59 Intake Total 938 1150 Output Total 300 Balance 938 850 Weight 50.349 kg Intake: Intake, IV Titration 938 1150 Amount Levofloxacin 750Mg-D5w 150 Pmx 750 mg In Dextrose/ Water 1 150ml.bag @ 100 mls/hr IVPB Q24H [facility] Rx#: [id number] Sodium Chloride 0.9% 1, 938 1000 000 ml @ 125 mls/hr IV . Q8H [facility] Rx#:[id number] Oral 0 0 Output: Urine 300 Other: # Voids 1 # Bowel Movements 4 - Exam Physical exam Pleasant 66-year-old female resting in bed does not appear in any acute distress Lungs essentially clear on room air sats 98% no cough noted no wheezing Heart S1-S2 audible regular denying chest pain Abdomen soft not distended date slight cramping. Bowel tones present. States has had several stools this morning noted blood patient denies abdominal cramping with bowel movements states urinating no difficulty reports no nausea sensation Extremities no edema noted - Labs CBC & Chem 7: 11/02/16 06:41 11/02/16 06:41 Labs: Abnormal Lab Results - Last 24 Hours (Table) 11/01/16 11/01/16 11/02/16 Range/Units 15:56 15:56 06:41 WBC 14.6 H 10.8 H (3.8-10.6) k/uL RBC 3.50 L (3.80-5.40) m/uL MCV 102.3 H 103.8 H (80.0-100.0) fL Neutrophils # 12.6 H 8.7 H (1.3-7.7) k/uL Lymphocytes # 0.9 L (1.0-4.8) k/uL Sodium 136 L (137-145) mmol/L Chloride (98-107) mmol/L Carbon Dioxide (22-30) mmol/L Glucose 116 H (74-99) mg/dL Calcium 8.1 L (8.4-10.2) mg/dL AST 37 H (14-36) U/L Total Protein 6.0 L (6.3-8.2) g/dL Albumin (3.5-5.0) g/dL 11/02/16 Range/Units 06:41 WBC (3.8-10.6) k/uL RBC (3.80-5.40) m/uL MCV (80.0-100.0) fL Neutrophils # (1.3-7.7) k/uL Lymphocytes # (1.0-4.8) k/uL Sodium (137-145) mmol/L Chloride 109 H (98-107) mmol/L Carbon Dioxide 20 L (22-30) mmol/L Glucose (74-99) mg/dL Calcium 7.6 L (8.4-10.2) mg/dL AST (14-36) U/L Total Protein 4.9 L (6.3-8.2) g/dL Albumin 2.6 L (3.5-5.0) g/dL Microbiology - Last 24 Hours (Table) 11/01/16 02:39 Blood Culture Gram Stain - Preliminary Blood 11/01/16 02:39 Blood Culture - Preliminary Blood Assessment and Plan Plan: Impression Present on admission tingling to the bilateral hands and bilateral feet suspect due to ALLERGIC reaction resolving Present on admission abdominal pain with bloody stool with stool positive for occult blood unclear etiology History of esophageal reflux disease An episode of hypotension after receiving antihistamine and steroid in the ER resolved Osteoarthritis on naproxen Anxiety disorder nonspecified 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 Present on admission hypokalemia corrected resolved Leukocytosis suspect due to steroid given in the emergency room Hypertension urgency Chronic back pain opiate dependency Blood cultures 2 gram-positive Plan Hydralazine 20 mg IV every 6 hours when necessary if systolic blood pressure greater than 160 Consider infectious disease consultation defer to medicine service hold naproxen Monitor H&H DVT and GI prophylaxis Further surgical recommendations pending Repeat labs in the morning EGD and colonoscopy defer to GI service scheduled on The above impression and plan of care have been discussed and directed by signing physician. Catherine Cates nurse practitioner acting as scribe for signing physician.
--- NOTE | 2016-11-02 10:40 | P.CONS ---
History of Present Illness - Reason for Consult Consult date: 11/02/16 GI bleed - History of Present Illness 66-year-old female admitted with questionable anaphylactic reaction. Prior to admission patient was performing some yard work started to notice some tingling in her hands and feet not sure if she was bit by an insect. Hypotensive in the emergency room. Was provided Benadryl and steroids. Shortly thereafter she passed several bowel movement since yesterday with brighter red blood. CT abdomen and pelvis unremarkable no mentioning of diverticulosis or inflammatory changes in the bowel. US abdomen reported hepatic cysts. Last colonoscopy greater than 10 years ago. No history of EGD. Clostridium difficile testing negative. Preliminary blood cultures gram- positive bacilli. Last bloody bowel movement was around 8 AM this morning. Pain is generalized across the mid abdomen. No history of GI bleeding. Takes Naprosyn twice daily for years to treat arthritic pain. Denies gross hematemesis or melena. White count 10.8-15.6. Hemoglobin 11.7-13.6. MCV 102. Platelet 163. BUN 11. Creatinine 0.5. Stool occult blood positive. Review of Systems Constitutional: Denies fever, chills, sweats, weight gain, or loss. HEENT: Negative for migraines, blurred vision or loss, earaches, drainage, tinnitus, oral mucosal lesions, dysphagia, or odynophagia. CARDIAC: Hypertension. Negative for chest pain, arrhythmias, or palpitation. RESPIRATORY: Sleep apnea. CPAP. Negative for shortness of breath, hemoptysis, cough, or sputum production. GI: See HPI for pertinent findings. : Negative for hematuria, urgency, frequency, polyuria, or dysuria. GYNc: Denies possibility of . Negative vaginal discharge. MUSCULOSKELETAL: Chronic back pain. NEUROLOGIC: Negative for stroke or TIA. ENDOCRINE: Negative for thyroid problems. SKIN: Negative for rash or itching. PSYCHIATRIC: Negative history for depression and anxiety All systems: negative (See HPI) Past Medical History Past Medical History: GERD/Reflux, Hypertension Additional Past Medical History / Comment(s): TYLENOL OVERDOSE YEARS AGO,"I DIDN 'T PAY ATTENTION TO DOSAGE BECAUSE MY BACK PAIN WAS SO BAD". RESULTED IN MULTI- SYSTEM FAILURE, INOPERABLE LOWER BACK FRACTURE. History of Any Multi-Drug Resistant Organisms: None Reported Past Surgical History: Back Surgery, Joint Replacement, Orthopedic Surgery Additional Past Surgical History / Comment(s): TOTAL LEFT ARTHROPLASTY X2, D&C X5, TOTAL HYSTERECTOMY, RIGHT 5TH FINGER CYST REMOVAL, BILATERAL EYELID LIFT SURGERY. Past Anesthesia/Blood Transfusion Reactions: No Reported Reaction Past Psychological History: No Psychological Hx Reported Smoking Status: Never smoker Past Alcohol Use History: Daily Past Drug Use History: None Reported - Past Family History Mother Family Medical History: Diabetes Mellitus Additional Family Medical History / Comment(s): HEART DISEASE Son(s) Family Medical History: Diabetes Mellitus Medications and Allergies Home Medications Medication Instructions Recorded Confirmed Type Naproxen 500 mg PO Q12HR 01/28/14 11/01/16 History ALPRAZolam [Xanax] 0.5 mg PO HS 09/30/16 11/01/16 History Estradiol [Estrace] 1 mg PO HS 09/30/16 11/01/16 History Lisinopril [Zestril] 20 mg PO HS 09/30/16 11/01/16 History Omeprazole 40 mg PO HS 09/30/16 11/01/16 History HYDROcodone/APAP 5-325MG [[place] 1 tab PO Q8H PRN 10/31/16 11/01/16 History 5-325] Allergies Allergy/AdvReac Type Severity Reaction Status Date / Time morphine Allergy Itching Verified 11/01/16 14:56 venom-honey bee Allergy Anaphylaxis Verified 11/01/16 14:56 [bee venom (honey bee)] Physical Exam Vitals: Vital Signs Temp Pulse Pulse Resp BP Pulse Ox 11/02/16 07:00 97.2 F L 67 16 147/73 98 11/02/16 04:22 97.7 F 72 16 153/74 99 11/02/16 00:00 16 11/01/16 23:00 70 158/72 11/01/16 19:31 98.9 F 70 72 16 190/73 100 11/01/16 14:33 97.4 F L 56 L 16 196/74 100 Intake and Output 11/01/16 11/02/16 11/02/16 22:59 06:59 14:59 Intake Total 0 1150 Output Total 300 Balance -300 1150 Intake: Intake, IV Titration 1150 Amount Levofloxacin 750Mg-D5w 150 Pmx 750 mg In Dextrose/ Water 1 150ml.bag @ 100 mls/hr IVPB Q24H [facility] Rx#: [id number] Sodium Chloride 0.9% 1, 1000 000 ml @ 125 mls/hr IV . Q8H [facility] Rx#:[id number] Oral 0 Output: Urine 300 Other: # Voids 1 # Bowel Movements 4 Weight 50.349 kg General appearance: The patient is alert, oriented, in no acute distress. HET: Head is normocephalic and atraumatic. Pupils are equal and reactive. Oropharynx is clear without lesions. Neck: Supple without lymphadenopathy. Trachea midline. Heart: S1 S2. Regular rate and rhythm. Lungs: No crackles or wheezes are heard. Abdomen: Soft, mild tenderness across the mid to lower abdomen, nondistended with bowel sounds. No peritoneal signs. No palpable organomegaly or masses. Extremities: Normal skin color and turgor. No cyanosis, rash, ulceration, clubbing, or edema. Radial and pedal pulses are 2/4 bilaterally. Neurological: No focal deficits. Strength and sensation are grossly intact. Results CBC & Chem 7: 11/02/16 06:41 11/02/16 06:41 Labs: Abnormal Lab Results - Last 24 Hours (Table) 11/01/16 11/01/16 11/02/16 Range/Units 15:56 15:56 06:41 WBC 14.6 H 10.8 H (3.8-10.6) k/uL RBC 3.50 L (3.80-5.40) m/uL MCV 102.3 H 103.8 H (80.0-100.0) fL Neutrophils # 12.6 H 8.7 H (1.3-7.7) k/uL Lymphocytes # 0.9 L (1.0-4.8) k/uL Sodium 136 L (137-145) mmol/L Chloride (98-107) mmol/L Carbon Dioxide (22-30) mmol/L Glucose 116 H (74-99) mg/dL Calcium 8.1 L (8.4-10.2) mg/dL AST 37 H (14-36) U/L Total Protein 6.0 L (6.3-8.2) g/dL Albumin (3.5-5.0) g/dL 11/02/16 Range/Units 06:41 WBC (3.8-10.6) k/uL RBC (3.80-5.40) m/uL MCV (80.0-100.0) fL Neutrophils # (1.3-7.7) k/uL Lymphocytes # (1.0-4.8) k/uL Sodium (137-145) mmol/L Chloride 109 H (98-107) mmol/L Carbon Dioxide 20 L (22-30) mmol/L Glucose (74-99) mg/dL Calcium 7.6 L (8.4-10.2) mg/dL AST (14-36) U/L Total Protein 4.9 L (6.3-8.2) g/dL Albumin 2.6 L (3.5-5.0) g/dL Microbiology - Last 24 Hours (Table) 11/01/16 02:39 Blood Culture Gram Stain - Preliminary Blood 11/01/16 02:39 Blood Culture - Preliminary Blood CT scan - abdomen: report reviewed (Dr. Gagnon) US - abdomen: report reviewed (Dr. Gagnon) Assessment and Plan (1) GI bleeding Narrative/Plan: Suspect ischemic colitis with episodes of profound hypotension on admission with subsequent development of bloody red bowel movements. Upper GI source cannot be entirely excluded with a history of chronic NSAID usage twice daily. Status: Acute (2) Abdominal pain Status: Acute (3) Anaphylaxis Status: Acute Plan: 1. Nothing by mouth except medications ice chips and popsicles. CBC managing. GI prophylaxis Protonix 40 mg twice daily. 2. Preliminary blood cultures gram-positive bacilli. Receiving IV Levaquin. 3. Tentative plans to proceed with EGD colonoscopy on . We'll follow closely with you. The wrapper cashier has discussed the risks, benefits and alternative therapies for the above-mentioned procedure and for both sedation/analgesia as well as necessary blood product administration, if indicated, as they pertain to this patient. The patient has indicated understanding and acceptance of the risks and procedures discussed. Thank you for this kind referral and the opportunity to participate in the care of your patient. This consultation was discussed with Dr. Gagnon. The impression and plan of care have been directed as dictated.
--- NOTE | 2016-11-02 12:01 | P.PN ---
Subjective Principal diagnosis: 66-year-old female seen this morning in rounds with Dr. Montelongo. Patient was admitted for anaphylaxis, abdominal pain, and GI bleeding. Patient remains nothing by mouth at this time. She denies any nausea or vomiting. She does complain of abdominal pain and complains it feels "sore". She states she has been up walking in the hallways and denies any shortness of breath or chest pain. Her blood pressure remains elevated-has PRN antihypertensive medications ordered. She remains afebrile. Blood cultures were positive for gram-positive bacilli. She remains on IV antibiotics. GI service was consulted to rectal bleeding and recommended EGD on . Objective - Vital Signs Vital signs: Vital Signs Temp 97.2 F L 11/02/16 07:00 Pulse 72 11/02/16 08:00 Resp 16 11/02/16 08:00 BP 147/73 11/02/16 07:00 Pulse Ox 98 11/02/16 07:00 Intake & Output 11/01/16 11/02/16 11/02/16 18:59 06:59 18:59 Intake Total 938 1150 Output Total 300 Balance 938 850 Weight 50.349 kg 50.349 kg Intake: Intake, IV Titration 938 1150 Amount Levofloxacin 750Mg-D5w 150 Pmx 750 mg In Dextrose/ Water 1 150ml.bag @ 100 mls/hr IVPB Q24H [facility] Rx#: [id number] Sodium Chloride 0.9% 1, 938 1000 000 ml @ 125 mls/hr IV . Q8H [facility] Rx#:[id number] Oral 0 0 Output: Urine 300 Other: # Voids 1 # Bowel Movements 4 - Exam GENERAL: Alert and oriented. Pleasant and cooperative. Appears in no acute distress. RESPIRATORY: Lungs clear bilaterally. No use of accessory muscles. Patient maintaining oxygen saturation greater than 92%. CARDIOVASCULAR: S1 and S2 noted. No murmurs auscultated. No JVD noted. EXTREMITIES: No edema noted. Palpable pedal pulses +2. ABDOMEN: Pain noted upon palpation. Bowel sounds present 4 quadrants. No distention noted. - Labs CBC & Chem 7: 11/02/16 06:41 11/02/16 06:41 Labs: Abnormal Lab Results - Last 24 Hours (Table) 11/01/16 11/01/16 11/02/16 Range/Units 15:56 15:56 06:41 WBC 14.6 H 10.8 H (3.8-10.6) k/uL RBC 3.50 L (3.80-5.40) m/uL MCV 102.3 H 103.8 H (80.0-100.0) fL Neutrophils # 12.6 H 8.7 H (1.3-7.7) k/uL Lymphocytes # 0.9 L (1.0-4.8) k/uL Sodium 136 L (137-145) mmol/L Chloride (98-107) mmol/L Carbon Dioxide (22-30) mmol/L Glucose 116 H (74-99) mg/dL Calcium 8.1 L (8.4-10.2) mg/dL AST 37 H (14-36) U/L Total Protein 6.0 L (6.3-8.2) g/dL Albumin (3.5-5.0) g/dL 11/02/16 Range/Units 06:41 WBC (3.8-10.6) k/uL RBC (3.80-5.40) m/uL MCV (80.0-100.0) fL Neutrophils # (1.3-7.7) k/uL Lymphocytes # (1.0-4.8) k/uL Sodium (137-145) mmol/L Chloride 109 H (98-107) mmol/L Carbon Dioxide 20 L (22-30) mmol/L Glucose (74-99) mg/dL Calcium 7.6 L (8.4-10.2) mg/dL AST (14-36) U/L Total Protein 4.9 L (6.3-8.2) g/dL Albumin 2.6 L (3.5-5.0) g/dL Microbiology - Last 24 Hours (Table) 11/01/16 02:39 Blood Culture Gram Stain - Preliminary Blood 11/01/16 02:39 Blood Culture - Preliminary Blood Assessment and Plan Plan: ASSESSMENT: 1. GI bleeding, acute, unknown etiology. May be due to patient's chronic NSAID use. Patient scheduled for EGD 2. Questionable anaphylaxis with numbness and tingling to extremities, present on admission, resolved 3. Hypotension, in emergency room after receiving steroid and antihistamine, resolved 4. Essential hypertension 5. Abdominal pain, acute 6. Leukocytosis, improving. Likely due to steroid administration. Patient remains on IV Levaquin 7. History of gastroesophageal reflux disease PLAN: -Patient to remain nothing by mouth except for ice chips and popsicles per GI recommendations -Patient scheduled for EGD on , 11/04/2016 -Continue PRN hydralazine for hypertension -Monitor labs -Monitor vital signs and address as appropriate -Continue IV Levaquin, consult infectious disease due to positive blood cultures -GI prophylaxis: Patient receiving Protonix 40 mg IV twice a day -DVT prophylaxis: Patient wearing Venodyne's -Continue IV fluids The above impression and plan of care have been discussed and directed by signing physician. Ilene Terrazas, nurse practitioner, acting as scribe for signing physician.
--- NOTE | 2016-11-02 12:13 | HP ---
The patient is a pleasant 66-year-old white female who was admitted for acute abdominal pain. Patient apparently was seen last night in the emergency department approximately quarter to 11 and subsequently admitted. She apparently first stated that she had an allergic reaction; however, she had no previous ingestions or pills and she states that she has had anaphylaxis before , but did not have any exposures. She states that she complained of itching and some hives in her arms and acute abdominal pain. She denies any recent bee stings, which she states she has an allergy to BEES. Denies any cough, wheezing , shortness of breath, tongue swelling, throat swelling, etc. Medications include: 1. Naprosyn. 2. Xanax. 3. Estrace. 4. Zestril. 5. Omeprazole. 6. [place]. She does have an EpiPen, but did not use it. Allergies to MORPHINE and BEE VENOM. Review of systems is essentially unremarkable. PHYSICAL EXAM: GENERAL: She is alert and oriented x3, in mild distress secondary to abdominal pain. HEAD AND NECK: Head is normocephalic and atraumatic. Normal distribution of hair. Pupils equal, round and reactive to light. Extraocular muscles are intact. Tympanic membranes are intact. Skin is warm and dry to palpation. There is no evidence of hives or wheezing. Abdomen is soft with slight abdominal discomfort in the lower portion, diffuse in nature with no rebound, rigidity or guarding. IMPRESSIONS: 1. Acute abdominal pain with positive Hemoccult stools. 2. History of esophageal reflux disease. 3. Remote history of anaphylaxis with possible allergic reaction with unknown etiology. 4. Anxiety disorder. 5. Leukocytosis. PLAN: Admit patient, n.p.o., full surgical consultation in progress for management of abdominal pain. Continue to follow patient's overall progress. MELISSAD
[2016-11-02] MEDS: LISINOPRIL 20 MG TAB PO SCH (20:25)
[2016-11-02] MEDS: ALPRAZolam 0.5 MG TAB PO SCH (20:28)
[2016-11-02] MEDS: ESTRADIOL 0.5 MG TAB PO SCH (20:34)
[2016-11-03] MEDS: HYDROcodone/APAP 5-325MG 1 EACH TAB PO PRN ×2 (04:53→21:08)
[2016-11-03] MEDS: SODIUM CHLORIDE 0.9% 1,000 ML IV SCH ×3 (04:54→23:44)
[2016-11-03 07:31] LABS: ALT 26 U/L (9-52); AST 16 U/L (14-36); Alkaline Phosphatase 52 U/L (38-126); Anion Gap 7 mmol/L; Blood Urea Nitrogen 3 mg/dL (7-17); Calcium 7.7 mg/dL (8.4-10.2); Carbon Dioxide 21 mmol/L (22-30); Chloride 108 mmol/L (98-107); Glucose 71 mg/dL (74-99); Non-African American GFR(MDRD) >60 (>60 ml/min/1.73 sqM); Potassium 3.2 mmol/L (3.5-5.1); Sodium 136 mmol/L (137-145); Total Bilirubin 0.4 mg/dL (0.2-1.3); Total Protein 4.6 g/dL (6.3-8.2)
[2016-11-03 07:31] LABS: Basophils % (A) 0 %; CHCM 32.7; Eosinophils # (A) 0.1 k/uL (0-0.7); Eosinophils % (A) 1 %; HDW 2.37; HGB 11.1 gm/dL (11.4-16.0); Luc # (Auto) 0.16; Luc % (Auto) 1; Lymphocytes # (A) 1.4 k/uL (1.0-4.8); Lymphocytes % (A) 11 %; MCHC 33.5 g/dL (31.0-37.0); MCV 101.3 fL (80.0-100.0); Mean Platelet Volume 7.4; Monocytes # (A) 0.7 k/uL (0-1.0); Monocytes % (A) 5 %; Neutrophils # (A) 10.4 k/uL (1.3-7.7); Neutrophils % (A) 81 %; RBC 3.26 m/uL (3.80-5.40); WBC 12.8 k/uL (3.8-10.6); WBC (Perox) 13.25
[2016-11-03] MEDS ORDERED: POTASSIUM CHLORIDE ER 20 MEQ TAB.ER PO STA ×2 (09:05→13:04)
--- NOTE | 2016-11-03 09:05 | P.PN ---
Subjective Principal diagnosis: 66-year-old female seen this morning by Dr. Montelongo. Patient was admitted for anaphylaxis, abdominal pain, and GI bleeding. Patient continues to complain of abdominal pain. Patient remains NPO with the exception of popsicles and ice chips, which she has been tolerating without nausea or vomiting. Patient states she has been up ambulating in the hallways into the bathroom. Patient's blood pressure was elevated throughout the night. Receiving PRN hydralazine for systolic blood pressure greater than 160 and lisinopril 20 mg at night. Patient is scheduled for scope on by GI service. Objective - Vital Signs Vital signs: Vital Signs Temp 96.1 F L 11/03/16 07:00 Pulse 79 11/03/16 07:00 Resp 16 11/03/16 07:00 BP 119/58 11/03/16 07:00 Pulse Ox 96 11/03/16 07:00 Intake & Output 11/02/16 11/03/16 11/03/16 18:59 06:59 18:59 Intake Total 500 1240 Balance 500 1240 Weight 50.349 kg Intake: IV 500 1000 Sodium Chloride 0.9% 1, 500 1000 000 ml @ 125 mls/hr IV . Q8H [facility] Rx#:[id number] Oral 240 Other: Voiding Method Bedside Commode # Voids 3 # Bowel Movements 2 # Emeses 0 - Exam GENERAL: Alert and oriented. Pleasant and cooperative. Appears in no acute distress. RESPIRATORY: Lungs clear bilaterally. No use of accessory muscles. Patient maintaining oxygen saturation greater than 92%. CARDIOVASCULAR: S1 and S2 noted. No murmurs auscultated. No JVD noted. EXTREMITIES: No edema noted. Palpable pedal pulses +2. ABDOMEN: Pain noted upon palpation. Bowel sounds present 4 quadrants. No distention noted. - Labs CBC & Chem 7: 11/03/16 06:44 11/03/16 06:41 Labs: Abnormal Lab Results - Last 24 Hours (Table) 11/03/16 11/03/16 Range/Units 06:41 06:44 WBC 12.8 H (3.8-10.6) k/uL RBC 3.26 L (3.80-5.40) m/uL Hgb 11.1 L (11.4-16.0) gm/dL Hct 33.0 L (34.0-46.0) % MCV 101.3 H (80.0-100.0) fL Neutrophils # 10.4 H (1.3-7.7) k/uL Sodium 136 L (137-145) mmol/L Potassium 3.2 L (3.5-5.1) mmol/L Chloride 108 H (98-107) mmol/L Carbon Dioxide 21 L (22-30) mmol/L BUN 3 L (7-17) mg/dL Glucose 71 L (74-99) mg/dL Calcium 7.7 L (8.4-10.2) mg/dL Total Protein 4.6 L (6.3-8.2) g/dL Albumin 2.4 L (3.5-5.0) g/dL Microbiology - Last 24 Hours (Table) 11/01/16 02:39 Blood Culture Gram Stain - Final Blood Blood Culture - Final Bacillus species Not Anthracis Assessment and Plan Plan: ASSESSMENT: 1. GI bleeding, acute, unknown etiology. May be due to patient's chronic NSAID use. Patient scheduled for EGD 2. Questionable anaphylaxis with numbness and tingling to extremities, present on admission, resolved 3. Hypotension, in emergency room after receiving steroid and antihistamine, resolved 4. Essential hypertension 5. Abdominal pain, acute 6. Leukocytosis, improving. Likely due to steroid administration. Patient remains on IV Levaquin 7. History of gastroesophageal reflux disease 8. Hypokalemia PLAN: -Patient to remain nothing by mouth except for ice chips and popsicles per GI recommendations -Patient scheduled for EGD on , 11/04/2016 -Continue PRN hydralazine for hypertension -Will add additional dose of lisinopril in the morning for better blood pressure control -Monitor labs -Monitor vital signs and address as appropriate -Continue IV Levaquin, consult infectious disease due to positive blood cultures -GI prophylaxis: Patient receiving Protonix 40 mg IV twice a day -DVT prophylaxis: Patient wearing Venodyne's -Continue IV fluids The above impression and plan of care have been discussed and directed by signing physician. Ilene Terrazas, nurse practitioner, acting as scribe for signing physician.
[2016-11-03] MEDS: PANTOPRAZOLE 40 MG/10 ML VIAL IVP SCH ×2 (09:42→21:04)
--- NOTE | 2016-11-03 09:49 | P.PN ---
Subjective Principal diagnosis: GI bleed Still passing blood tinged bowel movements but last one this morning was less bloody and more dark in color. Abdominal pain improved. Afebrile. ID consulted for evaluation of blood cultures. Hemoglobin 11.1. Objective - Vital Signs Vital signs: Vital Signs Temp 96.1 F L 11/03/16 07:00 Pulse 79 11/03/16 07:00 Resp 16 11/03/16 07:00 BP 119/58 11/03/16 07:00 Pulse Ox 96 11/03/16 07:00 Intake & Output 11/02/16 11/03/16 11/03/16 18:59 06:59 18:59 Intake Total 500 1240 Balance 500 1240 Weight 50.349 kg Intake: IV 500 1000 Sodium Chloride 0.9% 1, 500 1000 000 ml @ 125 mls/hr IV . Q8H [facility] Rx#:[id number] Oral 240 Other: Voiding Method Bedside Commode # Voids 3 # Bowel Movements 2 # Emeses 0 - Exam General appearance: The patient is alert, oriented, in no acute distress. HET: Head is normocephalic and atraumatic. Pupils are equal and reactive. Oropharynx is clear without lesions. Neck: Supple without lymphadenopathy. Trachea midline. Heart: S1 S2. Regular rate and rhythm. Lungs: No crackles or wheezes are heard. Abdomen: Soft, mild tenderness to bilateral lower abdomen, nondistended with bowel sounds. No peritoneal signs. No palpable organomegaly or masses. Extremities: Normal skin color and turgor. No cyanosis, rash, ulceration, clubbing, or edema. Radial and pedal pulses are 2/4 bilaterally. Neurological: No focal deficits. Strength and sensation are grossly intact. - Labs CBC & Chem 7: 11/03/16 06:44 11/03/16 06:41 Labs: Abnormal Lab Results - Last 24 Hours (Table) 11/03/16 11/03/16 Range/Units 06:41 06:44 WBC 12.8 H (3.8-10.6) k/uL RBC 3.26 L (3.80-5.40) m/uL Hgb 11.1 L (11.4-16.0) gm/dL Hct 33.0 L (34.0-46.0) % MCV 101.3 H (80.0-100.0) fL Neutrophils # 10.4 H (1.3-7.7) k/uL Sodium 136 L (137-145) mmol/L Potassium 3.2 L (3.5-5.1) mmol/L Chloride 108 H (98-107) mmol/L Carbon Dioxide 21 L (22-30) mmol/L BUN 3 L (7-17) mg/dL Glucose 71 L (74-99) mg/dL Calcium 7.7 L (8.4-10.2) mg/dL Total Protein 4.6 L (6.3-8.2) g/dL Albumin 2.4 L (3.5-5.0) g/dL Microbiology - Last 24 Hours (Table) 11/01/16 02:39 Blood Culture Gram Stain - Final Blood Blood Culture - Final Bacillus species Not Anthracis Assessment and Plan (1) GI bleeding Narrative/Plan: Suspect ischemic colitis with episodes of profound hypotension on admission with subsequent development of bloody red bowel movements. Upper GI source cannot be entirely excluded with a history of chronic NSAID usage twice daily. Status: Acute (2) Abdominal pain Status: Acute (3) Anaphylaxis Status: Acute Plan: 1. CBC managing. GI prophylaxis Protonix 40 mg twice daily. 2. Preliminary blood cultures gram-positive bacilli. Receiving IV Levaquin. ID consulted 3. EGD colonoscopy tomorrow. We'll follow closely with you. Assessment and plan a care discussed with Dr. Gagnon
--- NOTE | 2016-11-03 12:49 | P.PN ---
Subjective 66-year-old female being seen this morning on rounds. Patients being followed by surgical service at the request of the attending for surgical eval and a female who developed bloody stools. GI is also participating in the plan of care. Hemoglobin this morning is 11. Patient states had one bowel movement yesterday morning nonsense a bowel movement she had the day before was bloody. Patient is being scheduled tomorrow for an EGD and a colonoscopy by GI service will await the results did note that infectious diseases participating in the plan of care as well as a preliminary blood culture gram-positive bacilli currently receiving IV Levaquin this morning the patient reports not having any sleep during the night secondary to blood pressure being elevated. Did note the blood pressure at 8:00 last evening was 191/73 in which the patient was treated with IV Apresoline. Currently blood pressure is 119/58. Objective - Vital Signs Vital signs: Vital Signs Temp 96.1 F L 11/03/16 07:00 Pulse 79 11/03/16 07:00 Resp 16 11/03/16 07:00 BP 119/58 11/03/16 07:00 Pulse Ox 96 11/03/16 07:00 Intake & Output 11/02/16 11/03/16 11/03/16 18:59 06:59 18:59 Intake Total 500 1240 Balance 500 1240 Weight 50.349 kg 50.349 kg Intake: IV 500 1000 Sodium Chloride 0.9% 1, 500 1000 000 ml @ 125 mls/hr IV . Q8H [facility] Rx#:[id number] Oral 240 Other: Voiding Method Bedside Commode # Voids 3 # Bowel Movements 2 # Emeses 0 - Exam Physical exam Pleasant 66-year-old female resting in bed does not appear in any acute distress talkative pleasant cooperative Lungs essentially clear on room air sats 98% no cough noted no wheezing Heart S1-S2 audible regular denying chest pain Abdomen soft not distended nontender states less abdominal cramping Bowel tones present. States no stool this morning had 1 stool yesterday states urinating no difficulty reports no nausea sensation Extremities no edema noted - Labs CBC & Chem 7: 11/03/16 06:44 11/03/16 06:41 Labs: Abnormal Lab Results - Last 24 Hours (Table) 11/03/16 11/03/16 Range/Units 06:41 06:44 WBC 12.8 H (3.8-10.6) k/uL RBC 3.26 L (3.80-5.40) m/uL Hgb 11.1 L (11.4-16.0) gm/dL Hct 33.0 L (34.0-46.0) % MCV 101.3 H (80.0-100.0) fL Neutrophils # 10.4 H (1.3-7.7) k/uL Sodium 136 L (137-145) mmol/L Potassium 3.2 L (3.5-5.1) mmol/L Chloride 108 H (98-107) mmol/L Carbon Dioxide 21 L (22-30) mmol/L BUN 3 L (7-17) mg/dL Glucose 71 L (74-99) mg/dL Calcium 7.7 L (8.4-10.2) mg/dL Total Protein 4.6 L (6.3-8.2) g/dL Albumin 2.4 L (3.5-5.0) g/dL Microbiology - Last 24 Hours (Table) 11/01/16 02:39 Blood Culture Gram Stain - Final Blood Blood Culture - Final Bacillus species Not Anthracis Assessment and Plan Plan: Impression Present on admission tingling to the bilateral hands and bilateral feet suspect due to ALLERGIC reaction resolving Present on admission abdominal pain with bloody stool with stool positive for occult blood unclear etiology History of esophageal reflux disease An episode of hypotension after receiving antihistamine and steroid in the ER resolved Osteoarthritis on naproxen Anxiety disorder nonspecified 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 Present on admission hypokalemia corrected resolved Leukocytosis suspect due to steroid given in the emergency room Hypertension urgency Chronic back pain opiate dependency Blood cultures 2 gram-positive Plan Hydralazine 20 mg IV every 6 hours when necessary if systolic blood pressure greater than 160 Will await findings from the EGD and colonoscopy scheduled tomorrow per GI service hold naproxen Monitor H&H DVT and GI prophylaxis Further surgical recommendations pending EGD and colonoscopy results Repeat labs in the morning The above impression and plan of care have been discussed and directed by signing physician. Catherine Cates nurse practitioner acting as scribe for signing physician.
[2016-11-03] MEDS ORDERED: PEG 3350-NA SULF,BICARB,CL/KCL 4,000 ML BOTTLE PO ONE (14:00)
--- NOTE | 2016-11-03 16:15 | CONS ---
DATE OF SERVICE: 11/02/2016 REASON FOR CONSULTATION: Positive blood culture. HISTORY OF PRESENT ILLNESS: The patient is a 56-year-old female who presented to the ER at [facility] on 11/01/16 with chief complaints of hives and rash involving the upper extremities with concern for possible ( ). The patient is not sure, not very clear if she has started taking any new medication or any perfumes . Subsequently, the patient has been watched by the ER physician and has been admitted to the hospital for possible anaphylaxis. The patient also complaining of some abdominal pain in the lower abdominal area at the time she presented to the ER, colic pain ( ) nausea but no vomiting and no diarrhea. The patient did have a CT of the abdomen and pelvis that was negative for any acute process. The patient has had blood cultures drawn in the ER which are now coming back as positive with gram positive bacilli. The patient has been treated with Levaquin. ID was consulted for further recommendations regarding antibiotic therapy. REVIEW OF SYSTEMS: CONSTITUTIONAL: Positive for weakness but no fever has been recorded. EYES: No complaint. ENT: No complaint. RESPIRATORY: As per HPI. CARDIOVASCULAR: No complaint. GENITOURINARY: No complaint. GASTROINTESTINAL: As per HPI. MUSCULOSKELETAL: No complaint. INTEGUMENTARY: As per HPI. PSYCHOLOGICAL: No complaint. ENDOCRINE: No complaint. NEUROLOGIC: No complaint. PAST MEDICAL HISTORY: Significant for hypertension, gastroesophageal reflux disease, history of Tylenol overdose. PAST SURGICAL HISTORY: Back surgery, ( ) on top in the past, D&C, hysterectomy, ( ) surgery. SOCIAL HISTORY: No history of smoking, drinking or drug use. FAMILY HISTORY: Mother has diabetes and heart disease. Son is diabetic. ALLERGIES: MORPHINE AND VENOM HONEY BEE. MEDICATIONS: The patient is currently on: 1. Tylenol. 2. [place]. 3. Xanax. 4. Epipen. 5. Estrace. 6. Hydralazine. 7. Levofloxacin. 8. Zestril. 9. Narcan. 10. Zofran. 11. Protonix. 12. IV fluids. On examination, blood pressure is 187/75 with a pulse of 78, temperature 98.5, satting 99% on room air. GENERAL DESCRIPTION: Middle aged female lying in bed in no distress. HEENT: Shows no pallor or scleral icterus. Oral mucosa is moist. NECK: Trachea is central. Ther is no thyromegaly. LUNGS: Unlabored breathing. Clear to auscultation anteriorly. HEART: S1/S2 regular rate. ABDOMEN: Soft, no tenderness. No guarding or rigidity. EXTREMITIES: No edema of feet. ( ) palpable. NEUROLOGIC: The patient is awake, alert, oriented x3. Mood and affect normal. Last hemoglobin 11.7, white count 10.8. Admission white count was 15.4 with a BUN of 8, creatinine 0.62. Electrolytes have been normal. Liver enzymes are normal. Urine has been ( ) with 13 WBC. Stool for occult blood was positive. Stool for C. diff is negative. CT of abdomen and pelvis with no acute abnormality. Chest x-ray - normal chest x-ray. DIAGNOSTIC IMPRESSION: 1. Patient with a positive blood culture drawn in the ER on 11/01/16 at 2:39, both at the same time with gram positive bacilli likely representing a skin contamination. The patient has no clinical signs to go along with it in a patient with no fever, chest x-ray reported negative, urine slightly positive, CT of abdomen and pelvis negative and no evidence of any cellulitis. 2. Patient does have mildly positive urinalysis, mild urinary tract infection ( ) not entirely excluded. PLAN: 1. Blood culture has been repeated to document clearance and no true bacteremia. 2. ( ) gram positive bacilli. 3. Keep the patient on Levaquin for possible UTI while awaiting for the culture to finalize. 4. We will follow up on clinical ( ) and cultures and further adjust medication if needed. Thank you for this consultation, will follow this patient along with you. KELLI
[2016-11-03] MEDS: ESTRADIOL 0.5 MG TAB PO SCH (21:04)
[2016-11-03] MEDS: ALPRAZolam 0.5 MG TAB PO SCH (21:04)
[2016-11-03] MEDS: LISINOPRIL 20 MG TAB PO SCH (21:05)
[2016-11-03] MEDS: LEVOFLOXACIN 750MG-D5W PMX 750 MG in DEXTROSE/WATER 1 150ML.BAG IVPB SCH (23:43)
[2016-11-04] MEDS: SODIUM CHLORIDE 0.9% 1,000 ML IV SCH (06:28)
[2016-11-04 07:15] LABS: CH 33.2; CHCM 32.8; HCT 35.5 % (34.0-46.0); HDW 2.41; HGB 11.8 gm/dL (11.4-16.0); MCH 33.8 pg (25.0-35.0); MCHC 33.4 g/dL (31.0-37.0); MCV 101.5 fL (80.0-100.0); RDW 12.8 % (11.5-15.5); WBC 12.9 k/uL (3.8-10.6)
[2016-11-04 07:16] LABS: Basophils # (A) 0.1 k/uL (0-0.2); Basophils % (A) 0 %; Eosinophils # (A) 0.2 k/uL (0-0.7); Eosinophils % (A) 1 %; Luc # (Auto) 0.19; Luc % (Auto) 2; Lymphocytes # (A) 1.3 k/uL (1.0-4.8); Lymphocytes % (A) 10 %; Monocytes # (A) 0.6 k/uL (0-1.0); Monocytes % (A) 5 %; Neutrophils # (A) 10.6 k/uL (1.3-7.7); Neutrophils % (A) 82 %
[2016-11-04 07:29] LABS: ALT 28 U/L (9-52); AST 18 U/L (14-36); Alkaline Phosphatase 69 U/L (38-126); Anion Gap 12 mmol/L; Blood Urea Nitrogen 2 mg/dL (7-17); Calcium 8.3 mg/dL (8.4-10.2); Carbon Dioxide 20 mmol/L (22-30); Chloride 105 mmol/L (98-107); Glucose 54 mg/dL (74-99); Non-African American GFR(MDRD) >60 (>60 ml/min/1.73 sqM); Potassium 3.8 mmol/L (3.5-5.1); Sodium 137 mmol/L (137-145); Total Bilirubin 0.5 mg/dL (0.2-1.3); Total Protein 5.3 g/dL (6.3-8.2)
[2016-11-04] MEDS: PANTOPRAZOLE 40 MG/10 ML VIAL IVP SCH ×2 (08:11→21:10)
[2016-11-04] MEDS: LISINOPRIL 10 MG TAB PO SCH (08:11)
--- NOTE | 2016-11-04 09:48 | P.PN ---
Subjective Principal diagnosis: 66-year-old female seen this morning by Dr. Montelongo. Patient was admitted for anaphylaxis, abdominal pain, and GI bleeding. She is scheduled for EGD and colonoscopy today. Patient completed her bowel prep and states she feels better and her abdominal pain has improved. She states her stool was liquid and red in color but she states she completed the bowel prep with right crystal light mixed in. She remains nothing by mouth. She denies chest pain, shortness of breath, nausea, or vomiting. Her blood pressure this morning is good with a reading of 114/78 however last night she did have 2 elevated blood pressure readings. Her white count this morning was 12.9. Infectious disease was consulted due to positive blood culture showing gram-positive bacilli. Infectious disease ordered repeat blood cultures due to possible skin contamination. Blood cultures from November 02 are negative at the 24-hour king. She remains on Levaquin per infectious disease for possible UTI while awaiting culture results. Objective - Vital Signs Vital signs: Vital Signs Temp 98.2 F 11/04/16 07:00 Pulse 66 11/04/16 07:00 Resp 18 11/04/16 07:00 BP 114/78 11/04/16 07:00 Pulse Ox 96 11/04/16 07:00 Intake & Output 11/03/16 11/04/16 11/04/16 18:59 06:59 18:59 Intake Total 500 5500 Output Total 400 Balance 500 5100 Weight 50.349 kg Intake: IV 500 1000 Sodium Chloride 0.9% 1, 500 1000 000 ml @ 125 mls/hr IV . Q8H [facility] Rx#:[id number] Oral 4500 Output: Urine 400 Other: Voiding Method Bedside Commode # Voids 2 9 # Bowel Movements 9 - Exam GENERAL: Alert and oriented. Pleasant and cooperative. Appears in no acute distress. RESPIRATORY: Lungs clear bilaterally. No use of accessory muscles. Patient maintaining oxygen saturation greater than 92%. CARDIOVASCULAR: S1 and S2 noted. No murmurs auscultated. No JVD noted. EXTREMITIES: No edema noted. Palpable pedal pulses +2. ABDOMEN: tenderness noted upon palpation. Bowel sounds present 4 quadrants. No distention noted. - Labs CBC & Chem 7: 11/04/16 06:39 11/04/16 06:39 Labs: Abnormal Lab Results - Last 24 Hours (Table) 11/04/16 11/04/16 Range/Units 06:39 06:39 WBC 12.9 H (3.8-10.6) k/uL RBC 3.50 L (3.80-5.40) m/uL MCV 101.5 H (80.0-100.0) fL Neutrophils # 10.6 H (1.3-7.7) k/uL Carbon Dioxide 20 L (22-30) mmol/L BUN 2 L (7-17) mg/dL Glucose 54 L (74-99) mg/dL Calcium 8.3 L (8.4-10.2) mg/dL Total Protein 5.3 L (6.3-8.2) g/dL Albumin 2.9 L (3.5-5.0) g/dL Microbiology - Last 24 Hours (Table) 11/02/16 16:09 Blood Culture - Preliminary Blood No Growth after 24 hours 11/01/16 02:39 Blood Culture Gram Stain - Final Blood Blood Culture - Final Bacillus species Not Anthracis Assessment and Plan Plan: ASSESSMENT: 1. GI bleeding, acute, unknown etiology. May be due to patient's chronic NSAID use. Patient scheduled for EGD 2. Questionable anaphylaxis with numbness and tingling to extremities, present on admission, resolved 3. Hypotension, in emergency room after receiving steroid and antihistamine, resolved 4. Essential hypertension 5. Abdominal pain, acute 6. Leukocytosis, improving. Patient remains on IV Levaquin. Repeat cultures from November 02 are negative at the 24 hour king. 7. History of gastroesophageal reflux disease 8. Hypokalemia, resolved PLAN: -Patient to undergo EGD and colonoscopy today per GI -Continue to monitor blood pressure. Continue with PRN hydralazine for hypertension and scheduled lisinopril -Continue with IV Levaquin per infectious disease recommendation -Await final blood culture results. Negative at the 24 hour king -Monitor labs -Monitor vital signs and address as appropriate -GI prophylaxis: Patient receiving Protonix 40 mg IV twice a day -DVT prophylaxis: Patient wearing Venodyne's -Continue IV fluids The above impression and plan of care have been discussed and directed by signing physician. Ilene Terrazas, nurse practitioner, acting as scribe for signing physician.
[2016-11-04] MEDS: HYDROcodone/APAP 5-325MG 1 EACH TAB PO PRN (13:03)
--- NOTE | 2016-11-04 14:04 | P.PN ---
Subjective 66-year-old female up ambulating in the hallway patient is scheduled today for EGD and colonoscopy per GI service. Patient states has had numerous loose watery clear stools from the bowel prep. no further episodes of rectal bleeding. No bloody stool. Patient denies any abdominal pain. Patient's been followed by surgical service at the request of the attending for abdominal pain with GI service working up bloody stools with EGD and colonoscopy to be done today Objective - Vital Signs Vital signs: Vital Signs Temp 98.2 F 11/04/16 07:00 Pulse 64 11/04/16 08:00 Resp 18 11/04/16 08:00 BP 114/78 11/04/16 07:00 Pulse Ox 96 11/04/16 07:00 Intake & Output 11/03/16 11/04/16 11/04/16 18:59 06:59 18:59 Intake Total 500 5500 Output Total 400 400 Balance 500 5100 -400 Weight 50.349 kg 50.349 kg Intake: IV 500 1000 Sodium Chloride 0.9% 1, 500 1000 000 ml @ 125 mls/hr IV . Q8H SHERIDAN Rx#:[id number] Oral 4500 Output: Urine 400 400 Other: Voiding Method Bedside Commode Bedside Commode # Voids 2 9 9 # Bowel Movements 9 9 - Exam Physical exam 66-year-old female up ambulating in the hallway pleasant cooperative oriented 3 denies abdominal cramping Lungs essentially clear adequate air movement Heart S1-S2 audible regular Abdomen soft non-distended nontender bowel tones present no nausea no vomiting no further bloody stools Extremities no edema noted - Labs CBC & Chem 7: 11/04/16 06:39 11/04/16 06:39 Labs: Abnormal Lab Results - Last 24 Hours (Table) 11/04/16 11/04/16 Range/Units 06:39 06:39 WBC 12.9 H (3.8-10.6) k/uL RBC 3.50 L (3.80-5.40) m/uL MCV 101.5 H (80.0-100.0) fL Neutrophils # 10.6 H (1.3-7.7) k/uL Carbon Dioxide 20 L (22-30) mmol/L BUN 2 L (7-17) mg/dL Glucose 54 L (74-99) mg/dL Calcium 8.3 L (8.4-10.2) mg/dL Total Protein 5.3 L (6.3-8.2) g/dL Albumin 2.9 L (3.5-5.0) g/dL Microbiology - Last 24 Hours (Table) 11/02/16 16:09 Blood Culture - Preliminary Blood No Growth after 24 hours Assessment and Plan Plan: Impression Present on admission tingling to the bilateral hands and bilateral feet suspect due to ALLERGIC reaction resolving Present on admission abdominal pain with bloody stool with stool positive for occult blood unclear etiology History of esophageal reflux disease An episode of hypotension after receiving antihistamine and steroid in the ER resolved Osteoarthritis on naproxen Anxiety disorder nonspecified 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 Catherine Cates nurse practitioner acting as scribe for signing physician.
[2016-11-04] MEDS ORDERED: LIDOCAINE 1% INJ 10MG/ML (20 ML MDV) ONE (14:05)
[2016-11-04] MEDS ORDERED: PROPOFOL 10 MG/ML 20 ML VIAL IV ONE (14:05)
[2016-11-04] MEDS ORDERED: SODIUM CHLORIDE 0.9% 1,000 ML IV ONE (14:05)
--- NOTE | 2016-11-04 14:23 | PN ---
PROGRESS NOTE Date of Service: DATE OF SERVICE: 11/03/2016 REASON FOR FOLLOW UP: 1. Positive blood cultures. 2. Possible UTI. INTERVAL HISTORY: The patient is afebrile. She complained of some pain in the upper abdominal pain. Some nausea but no vomiting. No diarrhea. Denies chest pain, shortness of breath or cough. EXAMINATION: Blood pressure 114/56 with a pulse of 79, temperature 96.8. She is 96% on room air. GENERAL DESCRIPTION: Middle-aged female lying in bed in no distress. RESPIRATORY SYSTEM: Unlabored breathing. Clear to auscultation anteriorly. HEART: S1/S2 regular. ABDOMEN: Soft. No guarding, no rigidity. LAB: Hemoglobin 11.1 with white count 12.8. BUN of 3, creatinine 0.56. Blood culture finalized with bacillus. DIAGNOSTIC IMPRESSION: 1. The patient with positive blood cultures for bacillus, likely a contamination as the patient does not have anything clinically to go along with it. Patient's follow up blood cultures on 11/02 so far negative without getting treatment for the same, hence, no need for further work up. 2. Patient is slightly positive with question of urinary tract infection. Currently on Levaquin which should continue for a very short course. MMODL / IJN: [id number] /
--- NOTE | 2016-11-04 15:03 | P.PCN ---
Date of Procedure: 11/04/16 Preoperative Diagnosis: Postoperative Diagnosis: Procedure(s) Performed: Procedures: 1. Esophagogastroduodenoscopy and biopsy. 2. Colonoscopy and biopsy. Preoperative diagnosis: Abdominal pain and rectal bleeding. Postoperative diagnosis: 1. Small sliding hiatal hernia with no obvious esophagitis or complicated reflux disease. 2. Mild gastritis. 3. Nonspecific resolving left sided colitis with rectal sparing that could represent ischemic or self-limited colitis. Preparation: GoLYTELY prep. Sedation: Was provided by anesthesia. Brief clinical history: The patient is a 66-year-old female who admitted with questionable anaphylactic reaction. Prior to admission patient was performing some yard work when she started to notice some tingling in her hands and feet not sure if she was bit by an insect. She was hypotensive in the emergency room. Was provided Benadryl and steroids. Shortly thereafter she passed several bowel movement with bright red blood. CT of the abdomen and pelvis were unremarkable. US abdomen reported hepatic cysts. Last colonoscopy greater than 10 years ago. No history of EGD. Clostridium difficile testing negative. Preliminary blood cultures gram-positive bacilli. Had abdominal pain which is generalized across the mid abdomen. No history of GI bleeding. Takes Naprosyn twice daily for years to treat arthritic pain. Denies gross hematemesis or melena. White count 10.8-15.6. Hemoglobin 11.7-13.6. MCV 102. Platelet 163. BUN 11. Creatinine 0.5. Stool occult blood positive. The details are summarized in the history and physical and dictated consultation and progress notes. Procedure: With the patient on her left lateral decubitus position and after informed consent and adequate sedation, I passed the Olympus-GIF 160 video upper endoscope through the cricopharyngeus down the esophagus. GE junction was around 31-32 cm from the incisors and there was a small sliding hiatal hernia. The esophagus did not show any evidence of esophagitis or complicated reflux disease. The endoscope was then passed into the stomach which was insufflated with air and inspected in detail including the retroflex view in the cardia. There was minimal mottling and erythema but no ulcers or erosions. Pyloric channel, duodenal bulb, post bulbar area and descending duodenum appeared within normal limits. Because of her symptoms, I obtained biopsies from the duodenum, antrum and esophagus then the endoscope was withdrawn and I proceeded with the colonoscopy. Perianal area did not show any fissures or fistulas. There were no masses felt on digital rectal examination. The Olympus CFQ 160L video colonoscope was then inserted in the rectum and the usual fashion and advanced to the cecum. There was relative rectal sparing, with the left side of the colon showing nonspecific colitis with patches of erythema, edema and friability and scattered erosions and superficial ulcerations with areas of normal looking mucosa interspersed. There was friability and the fecal water was discolored pink. No significant bleeding or clots. Starting around the splenic flexure and all the way to the cecum the mucosa appeared healthy. No polyps or tumors were seen or any obvious diverticular disease. I obtained multiple biopsies from the sigmoid area then the endoscope was withdrawn. The patient tolerated the procedure well. Plan: The patient was reassured and I discussed with her . These findings in the colon are consistent with ischemic or self-limited colitis, less likely infectious etiology. Will allow full fluids and consider advancing to low residue diet in the next 12 hours or so. Further plans based on her course and biopsy results. Implants: Indications for Procedure: Operative Findings: Description of Procedure:
[2016-11-04 20:39] VITALS: RESP 16
[2016-11-04] MEDS: ESTRADIOL 0.5 MG TAB PO SCH (21:08)
[2016-11-04] MEDS: metroNIDAZOLE 500 MG TAB PO SCH (21:09)
[2016-11-04] MEDS: ALPRAZolam 0.5 MG TAB PO SCH (21:14)
[2016-11-04] MEDS: LISINOPRIL 20 MG TAB PO SCH (21:37)
[2016-11-05] MEDS: LEVOFLOXACIN 750MG-D5W PMX 750 MG in DEXTROSE/WATER 1 150ML.BAG IVPB SCH (06:06)
[2016-11-05 07:08] LABS: Basophils % (A) 0 %; CH 34.5; CHCM 34.3; Eosinophils # (A) 0.3 k/uL (0-0.7); Eosinophils % (A) 3 %; HCT 35.1 % (34.0-46.0); HDW 2.47; HGB 11.7 gm/dL (11.4-16.0); Luc # (Auto) 0.16; Luc % (Auto) 2; Lymphocytes # (A) 1.2 k/uL (1.0-4.8); Lymphocytes % (A) 12 %; MCH 33.9 pg (25.0-35.0); MCHC 33.5 g/dL (31.0-37.0); MCV 101.1 fL (80.0-100.0); Mean Platelet Volume 8.1; Monocytes # (A) 0.5 k/uL (0-1.0); Monocytes % (A) 5 %; Neutrophils # (A) 8.1 k/uL (1.3-7.7); Neutrophils % (A) 79 %; RBC 3.47 m/uL (3.80-5.40); RDW 13.5 % (11.5-15.5); WBC 10.4 k/uL (3.8-10.6); WBC (Perox) 10.99
[2016-11-05 07:26] LABS: ALT 28 U/L (9-52); AST 18 U/L (14-36); Alkaline Phosphatase 68 U/L (38-126); Anion Gap 13 mmol/L; Blood Urea Nitrogen 3 mg/dL (7-17); Carbon Dioxide 20 mmol/L (22-30); Chloride 104 mmol/L (98-107); Glucose 71 mg/dL (74-99); Non-African American GFR(MDRD) >60 (>60 ml/min/1.73 sqM); Potassium 3.8 mmol/L (3.5-5.1); Sodium 137 mmol/L (137-145); Total Bilirubin 0.5 mg/dL (0.2-1.3); Total Protein 5.8 g/dL (6.3-8.2)
[2016-11-05 07:29] VITALS: BP 174/74; TEMP 97.1
--- NOTE | 2016-11-05 07:31 | P.PN ---
Subjective Principal diagnosis: GI bleed s/p egd/colonoscopy yesterday; nonspecific colitis normal upper exam. No bleeding. Anticipating discharge. Denies abdominal pain. Objective - Vital Signs Vital signs: Vital Signs Temp 97.1 F L 11/05/16 07:28 Pulse 72 11/05/16 07:28 Resp 16 11/04/16 23:00 BP 174/74 11/05/16 07:28 Pulse Ox 97 11/05/16 07:28 Intake & Output 11/04/16 11/05/16 11/05/16 18:59 06:59 18:59 Intake Total 900 Output Total 800 Balance 100 Weight 50.349 kg Intake: IV 900 Sodium Chloride 0.9% 1, 500 000 ml @ 125 mls/hr IV . Q8H SHERIDAN Rx#:[id number] Oral 0 Output: Urine 800 Other: Voiding Method Bedside Commode Toilet # Voids 4 # Bowel Movements 2 - Exam General appearance: The patient is alert, oriented, in no acute distress. HET: Head is normocephalic and atraumatic. Pupils are equal and reactive. Oropharynx is clear without lesions. Neck: Supple without lymphadenopathy. Trachea midline. Heart: S1 S2. Regular rate and rhythm. Lungs: No crackles or wheezes are heard. Abdomen: Soft, nontender, nondistended with bowel sounds. No peritoneal signs. No palpable organomegaly or masses. Extremities: Normal skin color and turgor. No cyanosis, rash, ulceration, clubbing, or edema. Radial and pedal pulses are 2/4 bilaterally. Neurological: No focal deficits. Strength and sensation are grossly intact. - Labs CBC & Chem 7: 11/05/16 06:44 11/04/16 06:39 Labs: Abnormal Lab Results - Last 24 Hours (Table) 11/04/16 11/05/16 Range/Units 06:39 06:44 RBC 3.47 L (3.80-5.40) m/uL MCV 101.1 H (80.0-100.0) fL Neutrophils # 8.1 H (1.3-7.7) k/uL Carbon Dioxide 20 L (22-30) mmol/L BUN 2 L (7-17) mg/dL Glucose 54 L (74-99) mg/dL Calcium 8.3 L (8.4-10.2) mg/dL Total Protein 5.3 L (6.3-8.2) g/dL Albumin 2.9 L (3.5-5.0) g/dL Microbiology - Last 24 Hours (Table) 11/02/16 16:09 Blood Culture - Preliminary Blood No Growth after 48 hours Assessment and Plan (1) GI bleeding Narrative/Plan: Nonspecific colitic possible ischemic. Status: Acute (2) Abdominal pain Status: Acute (3) Anaphylaxis Status: Acute Plan: 1. Advance diet. 2. DC per medicine. 3. Will sign off. Assessment and plan of care discussed with Dr. Robledo
[2016-11-05] MEDS: SODIUM CHLORIDE 0.9% 1,000 ML IV SCH (08:53)
--- NOTE | 2016-11-05 09:01 | P.DS ---
Providers Date of admission: 11/01/16 05:32 Expected date of discharge: 11/05/16 Attending physician: Yomi Montelongo Consults: 11/01/16 09:01 Consult Physician Routine Consulting Provider: Duncan Newman Consult Reason/Comments: ABDOMINAL PAIN Do you want consulting provider notified?: Yes 11/02/16 13:39 Consult Physician Routine Consulting Provider: Lissa Garzon Consult Reason/Comments: positive blood cultures Do you want consulting provider notified?: Yes Primary care physician: Yomi Montelongo [facility] Hospital Course: This 66-year-old female who presented to the emergency room on 11/01/2016 with a chief complaint of itching to her bilateral arms and she stated she thought she was having an anaphylactic reaction. The patient received a dose of antihistamine and steroids in the emergency room. Following admission the patient became hypotensive with a pressure of 70/40. She began to complain of abdominal pain and then had an episode of bloody stool. She was admitted to the hospital and surgery and GI were consulted. The patient's blood pressure was elevated throughout admission and patient was started on antihypertensive medication. The patient positive blood cultures on 11/01/2016. She was receiving IV Levaquin. Repeat cultures were drawn on 11/02/2016 and are negative for growth at the 48 hour king. The patient underwent an EGD and colonoscopy on 11/04/2016. The results indicated a small sliding hiatal hernia, mild gastritis, and a nonspecific resolving left-sided colitis with rectal sparing that could represent ischemic or self-limited colitis. GI service indicated the patient was stable for discharge and can follow up outpatient. The patient is stable for discharge today per Dr. Montelongo DISCHARGE DIAGNOSIS: 1. GI bleeding, acute, resolving, EGD shows mild gastritis, hiatal hernia, and nonspecific resolving left-sided colitis with rectal sparing the could represent ischemic or self-limited colitis. 2. Questionable anaphylaxis with numbness and tingling to extremities, present on admission, resolved 3. Hypotension, in emergency room after receiving steroid and antihistamine, resolved 4. Essential hypertension 5. Abdominal pain, acute, resolving 6. Leukocytosis, resolved 7. History of gastroesophageal reflux disease The above impression and plan of care have been discussed and directed by signing physician. Ilene Terrazas, nurse practitioner, acting as scribe for signing physician. Patient Condition at Discharge: Stable Plan - Discharge Summary New Discharge Prescriptions: New Lisinopril [Zestril] 10 mg PO DAILY #30 tab metroNIDAZOLE [Flagyl] 500 mg PO TID #21 tab Continue EPINEPHrine [Epipen 2-Maxime] 0.3 mg IM ONCE PRN #2 pkg PRN Reason: Allergic Reaction Lisinopril [Zestril] 20 mg PO HS Estradiol [Estrace] 1 mg PO HS ALPRAZolam [Xanax] 0.5 mg PO HS Omeprazole 40 mg PO HS HYDROcodone/APAP 5-325MG [Dunmore 5-325] 1 tab PO Q8H PRN PRN Reason: Pain Discontinued Naproxen 500 mg PO Q12HR Discharge Medication List EPINEPHrine [Epipen 2-Maxime] 0.3 mg IM ONCE PRN #2 pkg 09/04/14 [Rx] ALPRAZolam [Xanax] 0.5 mg PO HS 09/30/16 [History] Estradiol [Estrace] 1 mg PO HS 09/30/16 [History] Lisinopril [Zestril] 20 mg PO HS 09/30/16 [History] Omeprazole 40 mg PO HS 09/30/16 [History] HYDROcodone/APAP 5-325MG [Dunmore 5-325] 1 tab PO Q8H PRN 10/31/16 [History] Lisinopril [Zestril] 10 mg PO DAILY #30 tab 11/05/16 [Rx] metroNIDAZOLE [Flagyl] 500 mg PO TID #21 tab 11/05/16 [Rx] Follow up Appointment(s)/Referral(s): Yomi Montelongo DO [Primary Care Provider] - 1-2 days Duncan Newman MD [STAFF PHYSICIAN] - 1 Week Discharge Disposition: HOME SELF-CARE
[2016-11-05] MEDS: LISINOPRIL 10 MG TAB PO SCH (09:13)
[2016-11-05] MEDS: metroNIDAZOLE 500 MG TAB PO SCH (09:13)
[2016-11-05] MEDS: PANTOPRAZOLE 40 MG/10 ML VIAL IVP SCH (09:14)
[2016-11-05] MEDS: HYDROcodone/APAP 5-325MG 1 EACH TAB PO PRN (09:14)
[2016-11-05 10:34] VITALS: PULSE 64
--- NOTE | 2016-11-05 14:16 | PN ---
PROGRESS NOTE DATE OF SERVICE: 11/04/16 REASON FOR FOLLOW UP: 1. Positive blood culture. 2. Possible UTI. INTERVAL HISTORY: The patient is afebrile. She is feeling better. Breathing comfortably. Denies significant chest pain. She did complain of some abdominal pain and did mention bleeding per rectum. Though no worsening and no urinary symptoms. EXAMINATION: Blood pressure 114/72, pulse 64, temperature 98.2, she is 96% on room air. Generative description is a middle aged female lying in bed, in no distress. Respiratory system unlabored breathing. Clear to auscultation anteriorly. HEART: S1, S2. Regular rate and rhythm. Abdomen: Soft. No tenderness. LAB: Hemoglobin 11.1, white count 12.9 with a BUN of 2 and creatinine 0.54. Stool for C. diff has been negative. Blood culture with . Follow up blood cultures have been negative. DIAGNOSTIC IMPRESSION AND PLAN: 1. Patient with a positive blood culture with the suspicion likely contamination. No need for therapy for the same. 2. Patient with a possible urinary tract infection, currently covered with Levaquin. 3. Patient with slightly elevated white count, could be reactive to underlying gastrointestinal bleed for which the patient to undergo a EGD and colonoscopy today. MMODL / IJN: [id number] /
--- NOTE | 2016-11-05 21:28 | PN ---
PROGRESS NOTE DATE OF SERVICE: 11/05/2016. REASON FOR FOLLOW UP: 1. Positive blood culture contamination. 2. Colitis. INTERVAL HISTORY: The patient is afebrile. She is feeling better. Her abdominal pain has slightly improved. No nausea, no vomiting. No chest pain, shortness of breath. No cough. EXAMINATION: Blood pressure 124/74, pulse 84, temperature 97.1. She is 97% on room air. General description is a middle aged female lying in bed, in no distress. RESPIRATORY SYSTEM: Unlabored breathing, clear to auscultation anteriorly. HEART: S1, S2. Regular rate and rhythm. Abdomen soft, no tenderness. LABS: Hemoglobin 11.7, white count normalized to 10.4 with a BUN of 3.0, creatinine 0.60. DIAGNOSTIC IMPRESSION AND PLAN: 1. The patient with positive blood with likely skin contamination. 2. Patient with colitis with overall improvement in white count with the addition of Flagyl yesterday. I recommend keeping the patient on Levaquin and Flagyl for another ten days with close outpatient followup. MMODL / IJN: [id number] /
== END 2016-11-05 13:15 | disposition home or self-care (01) | DRG 386 ==
LOC: EC 22:34 → 3SUR 11-01 05:32
PROVIDERS: ADMIT Family Medicine; ATTEND Family Medicine
PROC: 0DB58ZX Excision of Esophagus, Via Natural or Artificial Opening Endoscopic, Diagnostic (ICD-10-PCS; 2016-11-04)
PROC: 0DBN8ZX Excision of Sigmoid Colon, Via Natural or Artificial Opening Endoscopic, Diagnostic (ICD-10-PCS; 2016-11-04)
PROC: 0DB98ZX Excision of Duodenum, Via Natural or Artificial Opening Endoscopic, Diagnostic (ICD-10-PCS; principal; 2016-11-04 14:15)
PROC: 0DB68ZX Excision of Stomach, Via Natural or Artificial Opening Endoscopic, Diagnostic (ICD-10-PCS; 2016-11-04 14:15)
DX: K51.50 Left sided colitis without complications (principal); K62.5 Hemorrhage of anus and rectum; I95.9 Hypotension, unspecified; F11.20 Opioid dependence, uncomplicated; K76.89 Other specified diseases of liver; N39.0 Urinary tract infection, site not specified; I10 Essential (primary) hypertension; I16.0 Hypertensive urgency; K29.70 Gastritis, unspecified, without bleeding; K44.9 Diaphragmatic hernia without obstruction or gangrene; M19.91 Primary osteoarthritis, unspecified site; F41.9 Anxiety disorder, unspecified; E87.6 Hypokalemia; G89.29 Other chronic pain; R20.2 Paresthesia of skin; R21 Rash and other nonspecific skin eruption; L29.9 Pruritus, unspecified; Z79.1 Long term (current) use of non-steroidal anti-inflammatories (NSAID); Z79.899 Other long term (current) drug therapy; Z88.5 Allergy status to narcotic agent; Z91.030 Bee allergy status; T38.0X5A Adverse effect of glucocorticoids and synthetic analogues, initial encounter; Z87.892 Personal history of anaphylaxis; Z90.710 Acquired absence of both cervix and uterus
CPT/HCPCS: 36415; 43239; 45380; 71010; 74177; 76700; 80053; 81001; 82272; 83605; 84484; 85025; 87040; 87324; 88305; 88342; 93005; 96361; 96372; 96374; 96375; 99285

== ENCOUNTER 2017-07-27 13:24 | Emergency (ER) | payer MEDICARE ==
--- NOTE | 2017-07-27 13:43 | ED ---
General Adult HPI - General Chief complaint: Extremity Injury, Upper Stated complaint: bilat arm tingling Time Seen by Provider: 07/27/17 13:25 Source: patient, RN notes reviewed Mode of arrival: ambulatory Limitations: no limitations - History of Present Illness Initial comments: This is a 67-year-old female presents emergency Department complaining of achiness to both arms. Patient states she's been having episodes of achiness in her arms over the last month. Patient states it occurs about 4-5 times a day. Patient states it lasts about 30 seconds in duration. Patient states she does not lose function when it occurs. Patient states it is bilateral. Patient denies any neck pain patient was any recent injury. Patient states currently is not occurring. Patient denies any headaches patient denies any loss of sensation. Patient denies any visual disturbance or speech disturbances. Patient denies chest pain difficulty breathing or shortness of breath. Patient denies any recent fever chills or cough. Patient has not followed up in the month with her primary medical care doctor. Patient seems to think that today it occurred a few more times than normal so she decided to come to the emergency department. - Related Data Home Medications Medication Instructions Recorded Confirmed ALPRAZolam [Xanax] 0.5 mg PO HS 09/30/16 07/27/17 Estradiol [Estrace] 1 mg PO HS 09/30/16 07/27/17 Omeprazole 40 mg PO HS 09/30/16 07/27/17 Lisinopril [Zestril] 10 mg PO HS 07/27/17 07/27/17 Naproxen [Naprosyn] 500 mg PO Q12HR 07/27/17 07/27/17 Phentermine HCl [Adipex-P] 37.5 mg PO DAILY 07/27/17 07/27/17 Previous Rx's Medication Instructions Recorded EPINEPHrine [Epipen 2-Maxime] 0.3 mg IM ONCE PRN #2 pkg 09/04/14 Allergies Allergy/AdvReac Type Severity Reaction Status Date / Time morphine Allergy Itching Verified 07/27/17 13:57 venom-honey bee Allergy Anaphylaxis Verified 07/27/17 13:57 [bee venom (honey bee)] Review of Systems ROS Statement: Those systems with pertinent positive or pertinent negative responses have been documented in the HPI. ROS Other: All systems not noted in ROS Statement are negative. Past Medical History Past Medical History: GERD/Reflux, Hypertension Additional Past Medical History / Comment(s): TYLENOL OVERDOSE YEARS AGO,"I DIDN 'T PAY ATTENTION TO DOSAGE BECAUSE MY BACK PAIN WAS SO BAD". RESULTED IN MULTI- SYSTEM FAILURE, INOPERABLE LOWER BACK FRACTURE. History of Any Multi-Drug Resistant Organisms: None Reported Past Surgical History: Back Surgery, Joint Replacement, Orthopedic Surgery Additional Past Surgical History / Comment(s): TOTAL LEFT ARTHROPLASTY X2, D&C X5, TOTAL HYSTERECTOMY, RIGHT 5TH FINGER CYST REMOVAL, BILATERAL EYELID LIFT SURGERY. Past Anesthesia/Blood Transfusion Reactions: No Reported Reaction Past Psychological History: No Psychological Hx Reported Smoking Status: Never smoker Past Alcohol Use History: Daily Past Drug Use History: None Reported - Past Family History Mother Family Medical History: Diabetes Mellitus Additional Family Medical History / Comment(s): HEART DISEASE Son(s) Family Medical History: Diabetes Mellitus General Exam - General Exam Comments Initial Comments: GENERAL: Patient is well-developed and well-nourished. Patient is nontoxic and well- hydrated and is in no acute distress. ENT: Neck is soft and supple. No significant lymphadenopathy is noted. Oropharynx is clear. Moist mucous membranes. Neck has full range of motion without eliciting any pain. EYES: The sclera were anicteric and conjunctiva were pink and moist. Extraocular movements were intact and pupils were equal round and reactive to light. Eyelids were unremarkable. PULMONARY: Unlabored respirations. Good breath sounds bilaterally. No audible rales rhonchi or wheezing was noted. CARDIOVASCULAR: There is a regular rate and rhythm without any murmurs gallops or rubs. ABDOMEN: Soft and nontender with normal bowel sounds. No palpable organomegaly was noted. There is no palpable pulsatile mass. SKIN: Skin is clear with no lesions or rashes and otherwise unremarkable. NEUROLOGIC: Patient is alert and oriented x3. Cranial nerves II through XII are grossly intact. Motor and sensory are also intact. Normal speech, volume and content. Symmetrical smile. Cerebellar exam grossly intact. MUSCULOSKELETAL: Normal extremities with adequate strength and full range of motion. No lower extremity swelling or edema. No calf tenderness. LYMPHATICS: No significant lymphadenopathy is noted PSYCHIATRIC: Normal psychiatric evaluation. Limitations: no limitations Course Vital Signs 07/27/17 07/27/17 13:28 14:39 Temperature 97.4 F L 97.8 F Pulse Rate 74 63 Respiratory 18 18 Rate Blood Pressure 143/78 166/77 O2 Sat by Pulse 100 98 Oximetry Medical Decision Making - Medical Decision Making I spoke with Dr. Montelongo and he wanted to have the patient followed up with him outpatient. - Lab Data Result diagrams: 07/27/17 13:46 07/27/17 13:46 Lab Results 07/27/17 07/27/17 07/27/17 Range/Units 13:46 13:46 13:46 WBC 5.1 (3.8-10.6) k/uL RBC 3.64 L (3.80-5.40) m/uL Hgb 11.7 (11.4-16.0) gm/dL Hct 35.9 (34.0-46.0) % MCV 98.7 (80.0-100.0) fL MCH 32.2 (25.0-35.0) pg MCHC 32.6 (31.0-37.0) g/dL RDW 12.4 (11.5-15.5) % Plt Count 188 (150-450) k/uL Neutrophils % 60 % Lymphocytes % 26 % Monocytes % 6 % Eosinophils % 4 % Basophils % 1 % Neutrophils # 3.1 (1.3-7.7) k/uL Lymphocytes # 1.3 (1.0-4.8) k/uL Monocytes # 0.3 (0-1.0) k/uL Eosinophils # 0.2 (0-0.7) k/uL Basophils # 0.0 (0-0.2) k/uL Sodium 138 (137-145) mmol/L Potassium 4.1 (3.5-5.1) mmol/L Chloride 103 (98-107) mmol/L Carbon Dioxide 24 (22-30) mmol/L Anion Gap 11 mmol/L BUN 19 H (7-17) mg/dL Creatinine 0.66 (0.52-1.04) mg/dL Est GFR (CKD-EPI)AfAm >90 (>60 ml/min/1.73 sqM) Est GFR (CKD-EPI)NonAf >90 (>60 ml/min/1.73 sqM) Glucose 88 (74-99) mg/dL Calcium 8.8 (8.4-10.2) mg/dL Magnesium 1.6 (1.6-2.3) mg/dL Total Bilirubin 0.5 (0.2-1.3) mg/dL AST 27 (14-36) U/L ALT 29 (9-52) U/L Alkaline Phosphatase 72 (38-126) U/L Total Creatine Kinase 133 (30-135) U/L CK-MB (CK-2) 2.4 (0.0-2.4) ng/mL CK-MB (CK-2) Rel Index 1.8 Troponin I <0.012 (0.000-0.034) ng/mL Total Protein 6.2 L (6.3-8.2) g/dL Albumin 3.8 (3.5-5.0) g/dL Disposition Clinical Impression: Bilateral arm pain Disposition: HOME SELF-CARE Instructions: Arm Pain (ED) Is patient prescribed a controlled substance at d/c from ED?: No Referrals: Yomi Montelongo DO [Primary Care Provider] - 1-2 days Time of Disposition: 15:09
[2017-07-27 14:00] LABS: Basophils % (A) 1 %; Eosinophils # (A) 0.2 k/uL (0-0.7); Eosinophils % (A) 4 %; HCT 35.9 % (34.0-46.0); HGB 11.7 gm/dL (11.4-16.0); Lymphocytes # (A) 1.3 k/uL (1.0-4.8); Lymphocytes % (A) 26 %; MCH 32.2 pg (25.0-35.0); MCHC 32.6 g/dL (31.0-37.0); MCV 98.7 fL (80.0-100.0); Mean Platelet Volume 7.2; Monocytes # (A) 0.3 k/uL (0-1.0); Monocytes % (A) 6 %; Neutrophils # (A) 3.1 k/uL (1.3-7.7); Neutrophils % (A) 60 %; Platelet Count 188 k/uL (150-450); RBC 3.64 m/uL (3.80-5.40); RDW 12.4 % (11.5-15.5); WBC 5.1 k/uL (3.8-10.6)
[2017-07-27 14:11] LABS: ALT 29 U/L (9-52); AST 27 U/L (14-36); Albumin 3.8 g/dL (3.5-5.0); Alkaline Phosphatase 72 U/L (38-126); Anion Gap 11 mmol/L; Blood Urea Nitrogen 19 mg/dL (7-17); Calcium 8.8 mg/dL (8.4-10.2); Carbon Dioxide 24 mmol/L (22-30); Chloride 103 mmol/L (98-107); Glucose 88 mg/dL (74-99); Magnesium 1.6 mg/dL (1.6-2.3); Potassium 4.1 mmol/L (3.5-5.1); Sodium 138 mmol/L (137-145); Total Bilirubin 0.5 mg/dL (0.2-1.3); Total Protein 6.2 g/dL (6.3-8.2)
[2017-07-27 14:23] LABS: Creatine Kinase 133 U/L (30-135)
[2017-07-27 14:37] LABS: Creatine Kinase MB 2.4 ng/mL (0.0-2.4); Troponin I <0.012 ng/mL (0.000-0.034)
[2017-07-27 15:29] VITALS: BP 174/70; PULSE 65; RESP 16; TEMP 97
== END 2017-07-27 15:28 | disposition home or self-care (01) ==
LOC: EC 13:24
DX: M79.601 Pain in right arm (principal); M79.602 Pain in left arm; K21.9 Gastro-esophageal reflux disease without esophagitis; I10 Essential (primary) hypertension; Z79.1 Long term (current) use of non-steroidal anti-inflammatories (NSAID); Z79.810 Long term (current) use of selective estrogen receptor modulators (SERMs); Z79.899 Other long term (current) drug therapy; Z88.5 Allergy status to narcotic agent; Z91.030 Bee allergy status
CPT/HCPCS: 36415; 80053; 82550; 82553; 83735; 84484; 85025; 93005; 99284

== ENCOUNTER 2018-06-12 16:11 | Emergency (ER) | payer MEDICARE ==
[2018-06-12 16:24] VITALS: TEMP 98.6
[2018-06-12] MEDS ORDERED: SODIUM CHLORIDE 0.9% 1,000 ML IV STA (16:45)
[2018-06-12] MEDS ORDERED: FAMOTIDINE 20 MG/2 ML VIAL IV STA (16:45)
[2018-06-12] MEDS ORDERED: DEXAMETHASONE SOD PHOSPHATE 10 MG/ML 1 ML VIAL IV STA (16:45)
[2018-06-12] MEDS ORDERED: ALBUTEROL NEBULIZED 2.5 MG/3 ML INHALATION STA (16:45)
--- NOTE | 2018-06-12 16:48 | ED ---
Skin/Abscess/FB HPI - General Chief complaint: Skin/Abscess/Foreign Body Stated complaint: bee sting/allergic Time Seen by Provider: 06/12/18 16:38 Source: patient, RN notes reviewed, old records reviewed Mode of arrival: ambulatory Limitations: no limitations - History of Present Illness Initial comments: This is a 68-year-old female the ER for evaluation of ALLERGIC reaction patient was bitten by a bee today. History of ALLERGIC reaction to bee sting. The 2 of events by her self and began to felt immediately better but comes ER for evaluation. Patient also took Benadryl. She does admit to little sleepy. Denies any current shortness of breath. Does not feel like her throat swelling or tongue swelling. MD complaint: rash -: minutes(s) Tetanus Up to Date: yes Severity: severe Improves with: medication (EpiPen) Worsens with: none Associated symptoms: itching, shortness of breath - Related Data Home Medications Medication Instructions Recorded Confirmed ALPRAZolam [Xanax] 0.5 mg PO HS 09/30/16 07/27/17 Estradiol [Estrace] 1 mg PO HS 09/30/16 07/27/17 Omeprazole 40 mg PO HS 09/30/16 07/27/17 Lisinopril [Zestril] 10 mg PO HS 07/27/17 07/27/17 Naproxen [Naprosyn] 500 mg PO Q12HR 07/27/17 07/27/17 Phentermine HCl [Adipex-P] 37.5 mg PO DAILY 07/27/17 07/27/17 Previous Rx's Medication Instructions Recorded EPINEPHrine [Epipen 2-Maxime] 0.3 mg IM ONCE PRN #2 pkg 09/04/14 EPINEPHrine [Epipen 2-Maxime] 0.3 mg IM ONCE PRN #1 pack 06/12/18 Famotidine [Pepcid] 20 mg PO BID #28 tablet 06/12/18 predniSONE 50 mg PO DAILY #5 tab 06/12/18 Allergies Allergy/AdvReac Type Severity Reaction Status Date / Time morphine Allergy Itching Verified 06/12/18 16:24 venom-honey bee Allergy Anaphylaxis Verified 06/12/18 16:24 [bee venom (honey bee)] Review of Systems ROS Statement: Those systems with pertinent positive or pertinent negative responses have been documented in the HPI. ROS Other: All systems not noted in ROS Statement are negative. Past Medical History Past Medical History: GERD/Reflux, Hypertension Additional Past Medical History / Comment(s): TYLENOL OVERDOSE YEARS AGO,"I DIDN'T PAY ATTENTION TO DOSAGE BECAUSE MY BACK PAIN WAS SO BAD". RESULTED IN MULTI-SYSTEM FAILURE, INOPERABLE LOWER BACK FRACTURE. History of Any Multi-Drug Resistant Organisms: None Reported Past Surgical History: Back Surgery, Joint Replacement, Orthopedic Surgery Additional Past Surgical History / Comment(s): TOTAL LEFT ARTHROPLASTY X2, D&C X 5, TOTAL HYSTERECTOMY, RIGHT 5TH FINGER CYST REMOVAL, BILATERAL EYELID LIFT SURGERY. Past Anesthesia/Blood Transfusion Reactions: No Reported Reaction Past Psychological History: No Psychological Hx Reported Smoking Status: Never smoker Past Alcohol Use History: Daily Past Drug Use History: None Reported - Past Family History Mother Family Medical History: Diabetes Mellitus Additional Family Medical History / Comment(s): HEART DISEASE Son(s) Family Medical History: Diabetes Mellitus General Exam Limitations: no limitations General appearance: alert, in no apparent distress Head exam: Present: atraumatic, normocephalic, normal inspection Eye exam: Present: normal appearance, PERRL, EOMI. Absent: scleral icterus, conjunctival injection, periorbital swelling ENT exam: Present: normal exam, mucous membranes moist Neck exam: Present: normal inspection. Absent: tenderness, meningismus, lymphadenopathy Respiratory exam: Present: normal lung sounds bilaterally. Absent: respiratory distress, wheezes, rales, rhonchi, stridor Cardiovascular Exam: Present: regular rate, normal rhythm, normal heart sounds. Absent: systolic murmur, diastolic murmur, rubs, gallop, clicks GI/Abdominal exam: Present: soft, normal bowel sounds. Absent: distended, tenderness, guarding, rebound, rigid Extremities exam: Present: normal inspection, full ROM, normal capillary refill. Absent: tenderness, pedal edema, joint swelling, calf tenderness Back exam: Present: normal inspection Neurological exam: Present: alert, oriented X3, CN II-XII intact Psychiatric exam: Present: normal affect, normal mood Skin exam: Present: warm, dry, intact, normal color. Absent: rash Course Vital Signs 06/12/18 06/12/18 06/12/18 16:22 17:08 17:13 Temperature 98.6 F Pulse Rate 88 78 80 Respiratory 16 Rate Blood Pressure 186/70 O2 Sat by Pulse 100 Oximetry - Reevaluation(s) Reevaluation #1: 06/12/18 18:15 Medical record reviewed Reevaluation #2: 06/12/18 18:15 Patient is in no acute distress Medical Decision Making - Medical Decision Making 68 female the ER with ALLERGIC reaction to bee sting. Patient symptoms are well controlled currently and she can be discharged home Disposition Clinical Impression: Allergic reaction to insect sting, Bee sting Disposition: HOME SELF-CARE Condition: Good Instructions (If sedation given, give patient instructions): Insect Bite or Sting (ED) Prescriptions: EPINEPHrine [Epipen 2-Maxime] 0.3 mg IM ONCE PRN #1 pack PRN Reason: Anaphylaxis Famotidine [Pepcid] 20 mg PO BID #28 tablet predniSONE 50 mg PO DAILY #5 tab Is patient prescribed a controlled substance at d/c from ED?: No Referrals: Yomi Montelongo DO [Primary Care Provider] - 1-2 days
[2018-06-12 19:09] VITALS: BP 182/88; PULSE 88; RESP 18
== END 2018-06-12 19:07 | disposition home or self-care (01) ==
LOC: EC 16:11
DX: T63.441A Toxic effect of venom of bees, accidental (unintentional), initial encounter (principal); R21 Rash and other nonspecific skin eruption; R06.02 Shortness of breath; K21.9 Gastro-esophageal reflux disease without esophagitis; I10 Essential (primary) hypertension; Z96.89 Presence of other specified functional implants; Z79.890 Hormone replacement therapy; Z79.1 Long term (current) use of non-steroidal anti-inflammatories (NSAID); Z79.899 Other long term (current) drug therapy; Z88.5 Allergy status to narcotic agent; Z91.030 Bee allergy status
CPT/HCPCS: 94640; 99285; 96374; 96375; 96361 ×2; J1100

== ENCOUNTER 2018-07-26 21:49 | Observation (INO) | payer MEDICARE ==
[2018-07-26] MEDS ORDERED: methylPREDNISolone SOD SUCCI 125 MG/2 ML VIAL IV STA (23:19)
[2018-07-26] MEDS ORDERED: FAMOTIDINE 20 MG/2 ML VIAL IV STA (23:19)
[2018-07-26] MEDS ORDERED: diphenhydrAMINE 50 MG/ML 1 ML VIAL IVP STA (23:19)
[2018-07-26] MEDS ORDERED: LORazepam 2 MG/ML INJ IV STA (23:55)
[2018-07-27 00:07] LABS: Glucose,Whole Blood 125 mg/dL (75-99)
[2018-07-27] MEDS ORDERED: EPINEPHrine 1 MG/ML 1 ML AMP IM STA ×2 (00:24→00:25)
--- NOTE | 2018-07-27 01:09 | ED ---
General Adult HPI - General Chief complaint: Skin/Abscess/Foreign Body Stated complaint: Allergic Reaction to Bee sting Time Seen by Provider: 07/26/18 22:47 Source: patient, family Mode of arrival: ambulatory Limitations: no limitations - History of Present Illness Initial comments: 68-year-old female patient presents to the emergency department today for evaluation after being stung by a bee. Patient has a history of anaphylactic reaction to bee stings. States she did use EpiPen around 2130 this evening. Patient states she is having discomfort and redness to the left abdomen at the sting site. Patient states that she also did take 2 capfuls of children's Benadryl. Patient states that while waiting in the waiting room she started to have some lower lip swelling and her throat feels dry. She denies any current difficulty breathing. Denies any abdominal pain. Denies any tongue or throat swelling. Patient denies any recent rash, fever, chills, chest pain, nausea, vomiting, diarrhea, constipation, back pain, numbness, tingling, dizziness, weakness, hematuria, dysuria, urinary urgency, urinary frequency, headache, visual changes, or any other complaints. - Related Data Home Medications Medication Instructions Recorded Confirmed Omeprazole 40 mg PO HS 09/30/16 07/26/18 Lisinopril 20 mg PO HS 06/12/18 07/26/18 Estradiol [Estrace] 1 mg PO DAILY 07/26/18 07/26/18 Previous Rx's Medication Instructions Recorded EPINEPHrine [Epipen 2-Maxime] 0.3 mg IM ONCE PRN #1 pack 06/12/18 Famotidine [Pepcid] 20 mg PO BID #28 tablet 06/12/18 Allergies Allergy/AdvReac Type Severity Reaction Status Date / Time morphine Allergy Itching Verified 07/26/18 22:59 venom-honey bee Allergy Anaphylaxis Verified 07/26/18 22:59 [bee venom (honey bee)] Review of Systems ROS Statement: Those systems with pertinent positive or pertinent negative responses have been documented in the HPI. ROS Other: All systems not noted in ROS Statement are negative. Past Medical History Past Medical History: GERD/Reflux, Hypertension Additional Past Medical History / Comment(s): TYLENOL OVERDOSE YEARS AGO,"I DID N'T PAY ATTENTION TO DOSAGE BECAUSE MY BACK PAIN WAS SO BAD". RESULTED IN MULTI- SYSTEM FAILURE, INOPERABLE LOWER BACK FRACTURE. History of Any Multi-Drug Resistant Organisms: None Reported Past Surgical History: Back Surgery, Joint Replacement, Orthopedic Surgery Additional Past Surgical History / Comment(s): TOTAL LEFT ARTHROPLASTY X2, D&C X5, TOTAL HYSTERECTOMY, RIGHT 5TH FINGER CYST REMOVAL, BILATERAL EYELID LIFT SURGERY. Past Anesthesia/Blood Transfusion Reactions: No Reported Reaction Past Psychological History: No Psychological Hx Reported Smoking Status: Never smoker Past Alcohol Use History: Daily Past Drug Use History: None Reported - Past Family History Mother Family Medical History: Diabetes Mellitus Additional Family Medical History / Comment(s): HEART DISEASE Son(s) Family Medical History: Diabetes Mellitus General Exam Limitations: no limitations General appearance: alert, in no apparent distress, other (Physical well- developed, well-nourished elderly female patient in no acute distress. Vital signs upon presentation are temperature 98.5F, pulse 79, respirations 20, blood pressure 184/74, pulse ox 99% on room air.) Eye exam: Present: normal appearance, PERRL, EOMI. Absent: scleral icterus, conjunctival injection, periorbital swelling ENT exam: Present: normal exam, normal oropharynx, mucous membranes moist, other (No obvious swelling noted) Neck exam: Present: normal inspection. Absent: tenderness, meningismus, lymphadenopathy Respiratory exam: Present: normal lung sounds bilaterally. Absent: respiratory distress, wheezes, rales, rhonchi, stridor Cardiovascular Exam: Present: regular rate, normal rhythm, normal heart sounds. Absent: systolic murmur, diastolic murmur, rubs, gallop, clicks GI/Abdominal exam: Present: soft, normal bowel sounds, other (There is small area of erythema and swelling noted to the left abdomen). Absent: distended, tenderness, guarding, rebound, rigid Neurological exam: Present: alert, oriented X3, CN II-XII intact Psychiatric exam: Present: normal affect, normal mood Skin exam: Present: warm, dry, intact, normal color. Absent: rash Course Vital Signs 07/26/18 07/26/18 07/26/18 21:56 23:22 23:30 Temperature 98.5 F Pulse Rate 79 73 Respiratory 20 50 H 15 Rate Blood Pressure 184/74 179/83 O2 Sat by Pulse 99 100 Oximetry 07/26/18 07/27/18 07/27/18 23:50 00:00 00:10 Temperature Pulse Rate 100 92 Respiratory 30 H 41 H 39 H Rate Blood Pressure 171/153 156/121 80/21 O2 Sat by Pulse 96 88 L Oximetry 07/27/18 07/27/18 07/27/18 00:20 00:30 00:40 Temperature Pulse Rate 92 82 85 Respiratory 13 33 H 11 L Rate Blood Pressure 70/53 70/50 102/78 O2 Sat by Pulse 98 Oximetry 07/27/18 07/27/18 07/27/18 00:50 01:00 01:10 Temperature Pulse Rate 76 65 Respiratory 22 12 8 L Rate Blood Pressure 104/56 138/73 138/73 O2 Sat by Pulse 100 100 85 L Oximetry 07/27/18 07/27/18 07/27/18 01:20 01:30 01:40 Temperature Pulse Rate 75 Respiratory 21 15 25 H Rate Blood Pressure 138/73 138/73 156/76 O2 Sat by Pulse 99 100 100 Oximetry 07/27/18 07/27/18 07/27/18 01:50 02:00 02:10 Temperature Pulse Rate Respiratory 11 L 21 Rate Blood Pressure 156/76 156/76 156/76 O2 Sat by Pulse 100 88 L Oximetry 07/27/18 07/27/18 07/27/18 02:30 02:40 02:50 Temperature Pulse Rate 67 66 68 Respiratory 16 17 18 Rate Blood Pressure 179/83 157/81 151/81 O2 Sat by Pulse 100 100 98 Oximetry - Reevaluation(s) Reevaluation #1: 07/27/18 patient is reporting generalized burning sensation after receiving Solu Medrol, Benadryl, and Pepcid. Patient seems quite uncomfortable and is rolling around on the bed. She refuses normal saline infusion at this time. She'll be given 0.5 mg of Ativan to aid with symptoms. Time: 23:55 Reevaluation #2: 07/27/18 01:26 Patient remains uncomfortable. She is responding appropriately still reports generalized pain. She is diaphoretic. EKG was obtained and showed normal sinus rhythm with no ST abnormalities. Blood glucose is 125. Will repeat vitals and continue to monitor closely. 07/27/18 01:29 Time: 00:05 Reevaluation #3: 07/27/18 Patient remains diaphoretic, now hypotensive with blood pressures in the 70s systolic over 40s diastolic. Patient with eyes closed, still responds to questioning. Did start IV fluid bolus. Nursing staff started an additional IV. Dr. Rangel at bedside. We will administer an additional 0.3 mg of epinephrine intramuscularly. Time: 00:25 Reevaluation #4: 07/27/18 Patient vital signs have improved. Skin remains moist. Still responding appropriately to questions. Decision to admit has been made. Patient has been are agreeable with this plan. We'll monitor in the emergency department for a little bit longer to ensure maintenance of vital signs. EKG Findings - EKG Comments: EKG Findings:: EKG obtained at 0004 shows normal sinus rhythm with a ventricular rate of 98, WI interval 134, QRS duration 72, QT 364, QTC 464. No evidence of ST elevation or depression. Medical Decision Making - Medical Decision Making 68 year-old female patient presented to the emergency department today for evaluation after being stung by a bee. Patient did use her EpiPen around 2130. Upon initial evaluation patient was resting comfortably in bed reporting irritation to the sting site in the left abdomen. She is also reporting some mild lower lip swelling and throat dryness. Physical examination was unremarkable. Lungs are clear to auscultation with good air movement. There is a erythematous and swollen area to the left abdomen. Shortly after receiving medications for ALLERGIC reaction patient developed generalized burning sensation to her skin. She is also reporting abdominal pain and became diaphoretic. Patient's blood pressure dropped down to the 70s systolic over 40s diastolic. Patient was given additional dose of epinephrine and IV fluid boluses. EKG showed normal sinus rhythm. Blood glucose was 125. Patient vital signs improved and she became more comfortable. We did monitor for a period in the emergency department to ensure stability. Patient blood pressures remained stable. We will admit for observation. We will continue q6 hour benadryl and pepcid. We will switch to oral prednisone as patient reported inability to tolerate IV solumedrol. Patient is aware of and agrees with this plan. - Lab Data Lab Results 07/27/18 Range/Units 00:05 POC Glucose (mg/dL) 125 H (75-99) mg/dL POC Glu Switch Technician ID Bobby Wan Critical Care Time Critical Care Time: Yes Total Critical Care Time: 40 (Patient with anaphylactic reaction to bee sting. Reviewed EKG. Repeated visits for patient monitoring and assessment. Ordered appropriate treatments and medications. Discussed case with attending physician. Re-evaluation after medication interventions. Reviewed labs (blood glucose). Interpretation of telemetry monitoring strips. Review of vital signs. ) Disposition Clinical Impression: Anaphylaxis Disposition: ADMITTED IP TO THIS [facility] Condition: Serious Referrals: Yomi Montelongo DO [Primary Care Provider] - 1-2 days Decision to Admit Reason: Admit from EC Decision Date: 07/27/18 Decision Time: 02:12
[2018-07-27] MEDS ORDERED: ACETAMINOPHEN TAB 325 MG TAB PO PRN (02:12)
[2018-07-27] MEDS ORDERED: ONDANSETRON 4 MG/2 ML VIAL IVP PRN (02:12)
[2018-07-27] MEDS ORDERED: NALOXONE 0.4 MG/ML 1 ML VIAL IV PRN (02:12)
[2018-07-27] MEDS ORDERED: SODIUM CHLORIDE 0.9% 1,000 ML IV SCH (02:15)
[2018-07-27 02:57] VITALS: RESP 18
[2018-07-27] MEDS ORDERED: LISINOPRIL 20 MG TAB PO SCH (04:57)
[2018-07-27 05:07] VITALS: BP 172/75; PULSE 73; TEMP 97.3
[2018-07-27] MEDS ORDERED: diphenhydrAMINE 50 MG/ML 1 ML VIAL IVP SCH (06:00)
[2018-07-27 06:17] VITALS: BMI 48.2
[2018-07-27] MEDS ORDERED: FAMOTIDINE 20 MG TAB PO SCH (09:00)
[2018-07-27] MEDS ORDERED: predniSONE 50 MG TAB PO SCH (09:00)
[2018-07-27] MEDS ORDERED: FAMOTIDINE 20 MG/2 ML VIAL IV SCH (09:00)
[2018-07-27] MEDS ORDERED: ESTRADIOL 0.5 MG TAB PO SCH (09:00)
--- NOTE | 2018-07-27 16:21 | P.HPIM ---
History of Present Illness H&P Date: 07/27/18 Chief Complaint: Bee Sting with SOB this is a 68-year-old female presented to the ER with shortness of breath after sustaining a bee sting in a patient with history of anaphylactic reaction to bee stings. She proceeded to use her EpiPen and Benadryl. 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 denied chest pain, palpitations.O2 sat 99% on room air. Once in the ER received IV fluids, IV steroids, Benadryl ,Pepcid, Ativan. She became diaphoretic, EKG obtained, reported normal sinus rhythm. Accu-Chek 125.blood pressure dropped into the 70s, received IV fluid bolus and additional 0.3 mg of EPI.post EPI, developed some abdominal pain with nausea.Responded well and admitted to the [facility] floor.this morning, doing quite well, denies chest pain, palpitations or increased shortness of breath. No further abdominal pain just complains of discomfort to left lateral abdominal wall site of prior bee sting,no erythema,no rash. Review of Systems ROS Statement: Those systems with pertinent positive or pertinent negative responses have been documented in the HPI. ROS Other: All systems not noted in ROS Statement are negative. Past Medical History Past Medical History: GERD/Reflux, Hypertension Additional Past Medical History / Comment(s): TYLENOL OVERDOSE YEARS AGO,"I DIDN'T PAY ATTENTION TO DOSAGE BECAUSE MY BACK PAIN WAS SO BAD". RESULTED IN MULTI-SYSTEM FAILURE, INOPERABLE LOWER BACK FRACTURE. History of Any Multi-Drug Resistant Organisms: None Reported Past Surgical History: Back Surgery, Joint Replacement, Orthopedic Surgery Additional Past Surgical History / Comment(s): TOTAL LEFT ARTHROPLASTY X2, D&C X5, TOTAL HYSTERECTOMY, RIGHT 5TH FINGER CYST REMOVAL, BILATERAL EYELID LIFT SURGERY. Past Anesthesia/Blood Transfusion Reactions: No Reported Reaction Smoking Status: Never smoker - Past Family History Mother Family Medical History: Diabetes Mellitus, Myocardial Infarction ([place]) Additional Family Medical History / Comment(s): pts. mother at age 71 from an [place] Son(s) Family Medical History: Diabetes Mellitus Father Family Medical History: Liver Disease Additional Family Medical History / Comment(s): PTS. FATHER AT AGE 47 SECONDARY TO ETOH Medications and Allergies Home Medications Medication Instructions Recorded Confirmed Type Omeprazole 40 mg PO HS 09/30/16 07/26/18 History EPINEPHrine [Epipen 2-Maxime] 0.3 mg IM ONCE PRN #1 pack 06/12/18 07/26/18 Rx Famotidine [Pepcid] 20 mg PO BID #28 tablet 06/12/18 07/26/18 Rx Lisinopril 20 mg PO HS 06/12/18 07/26/18 History Estradiol [Estrace] 1 mg PO DAILY 07/26/18 07/26/18 History diphenhydrAMINE [Benadryl] 50 mg PO Q6H PRN 2 Days #1 capsule 07/27/18 Rx methylPREDNISolone Dose Pack 4 mg PO DIRECTED #21 package 07/27/18 Rx [Medrol Dose Pack] Allergies Allergy/AdvReac Type Severity Reaction Status Date / Time morphine Allergy Itching Verified 07/26/18 22:59 venom-honey bee Allergy Anaphylaxis Verified 07/26/18 22:59 [bee venom (honey bee)] Physical Exam Vitals: Vital Signs Temp Pulse Pulse Resp BP BP Pulse Ox 07/27/18 05:05 97.3 F L 73 18 172/75 99 07/27/18 05:00 73 18 07/27/18 02:50 97.8 F 68 18 150/78 98 07/27/18 02:40 66 17 157/81 100 07/27/18 02:30 67 16 179/83 100 07/27/18 02:10 156/76 07/27/18 02:00 21 156/76 88 L 07/27/18 01:50 11 L 156/76 100 07/27/18 01:40 25 H 156/76 100 07/27/18 01:30 15 138/73 100 07/27/18 01:20 75 21 138/73 99 07/27/18 01:10 8 L 138/73 85 L 07/27/18 01:00 65 12 138/73 100 07/27/18 00:59 97.8 F 76 16 07/27/18 00:50 76 22 104/56 100 07/27/18 00:40 85 11 L 102/78 98 07/27/18 00:30 82 33 H 70/50 07/27/18 00:20 92 13 70/53 07/27/18 00:10 92 39 H 80/21 07/27/18 00:00 100 41 H 156/121 88 L 07/26/18 23:50 30 H 171/153 96 07/26/18 23:30 73 15 179/83 100 07/26/18 23:22 50 H 07/26/18 21:56 98.5 F 79 20 184/74 99 Intake and Output 07/26/18 07/27/18 07/27/18 22:59 06:59 14:59 Intake Total 315 Balance 315 Intake: Intake, IV Titration 75 Amount Sodium Chloride 0.9% 1, 75 000 ml @ 75 mls/hr IV . [id number] SHERIDAN Rx#:[id number] Oral 240 Other: Voiding Method Toilet # Voids 1 Weight 112 kg 50.802 kg PHYSICAL EXAM: VITAL SIGNS: [as above] GENERAL: sitting up in bed, no acute distress HEENT: Conjunctivae normal. eyes normal. oral mucosa moist.no swelling of the lips NECK: No JVD. No thyroid enlargement. No LNs CARDIOVASCULAR: S1, S2 muffled. No murmur RESPIRATION: unlabored,Breath sounds diminished in the bases. No rhonchi or crackles. No wheezing. ABDOMEN: Soft, nontender . No guarding. no masses palpable.Bowel sounds heard. LEGS: No edema. no swelling PSYCHIATRY: Alert and oriented -3, mood and affect normal. NERVOUS SYSTEM: Cranial N 2-12 grossly normal. Moves all 4 limbs. No focal deficits. No sensory deficit. Skin: no ulcer, no rash ,no edema Joints: No active swelling. No inflammation. Lymphatic system. No LN neck axilla or groin. Results Labs: Abnormal Lab Results - Last 24 Hours (Table) 07/27/18 Range/Units 00:05 POC Glucose (mg/dL) 125 H (75-99) mg/dL Thrombosis Risk Factor Assmnt - Choose All That Apply Any of the Below Risk Factors Present?: Yes Each Factor Represents 1 point: Oral contraceptives or hormone replacement therapy Other Risk Factors: Yes Each Risk Factor Represents 2 Points: Age 61-74 years Other congenital or acquired thrombophilia - If yes, enter type in comment: No Thrombosis Risk Factor Assessment Total Risk Factor Score: 3 Thrombosis Risk Factor Assessment Level: Moderate Risk Assessment and Plan Assessment: -anaphylaxis secondary to bee sting,in a patient with known ALLERGY of bee stings -Gastroesophageal reflux disease -Hypertension, currently mildly elevated after receiving epinephrine plus fluid boluses Plan: Continue current medication regime ,monitoring and symptomatic treatment. Maintain steroids, Benadryl, Pepcid. DC IV fluids. increase ambulation as tole rated. home meds have been reviewed and resumed. Discharge planning in progress for today. The impression and plan of care has been dictated as directed. : I performed a history and examination of this patient, discussed the same with the dictator. I agree with the dictator's note ,documented as a scribe. Any additional findings or plans will be noted. Time taken: 35 minutes
--- NOTE | 2018-07-27 16:30 | P.DS ---
Providers Date of admission: 07/27/18 04:02 Expected date of discharge: 07/27/18 Attending physician: Yomi Montelongo Primary care physician: Yomi Montelongo [facility] Course: Final Diagnoses: -anaphylaxis secondary to bee sting,in a patient with known ALLERGY of bee stings -Gastroesophageal reflux disease -Hypertension, mildly elevated after receiving epinephrine plus fluid boluses Hospital course:this is a 68-year-old female presented to the ER with shortness of breath after sustaining a bee sting in a patient with history of anaphylactic reaction to bee stings. She proceeded to use her EpiPen and Benadryl. She began feeling her lower lips swel land throat become core drier with some shortness of breath. denied chest pain, palpitations.O2 sat 99% on room air. Once in the ER received IV fluids, IV steroids, Benadryl ,Pepcid, Ativan. She became diaphoretic, EKG obtained, reported normal sinus rhythm. Accu-Chek 125.blood pressure dropped into the 70s, received IV fluid bolus and additional 0.3 mg of EPI.post EPI, developed some abdominal pain with nausea.Responded well and admitted to the [facility] floor.this morning, doing quite well, denies chest pain, palpitations or increased shortness of breath. No further abdominal pain just complains of discomfort to left lateral abdominal wall site of prior bee sting,no erythema,no rash. significant clinical improvement.patient is being discharged home in stable condition with guarded prognosis.patient states she has another EpiPen at home with refills as well. EXAM: GENERAL: Alert and oriented 3, no acute distress,no facial edema, no orbital edema, no swelling. CARDIOVASCULAR: S1, S2 muffled. No murmur RESPIRATION: unlabored,Breath sounds diminished in the bases. No rhonchi or crackles. No wheezing. ABDOMEN: Soft, nontender . No guarding. no masses palpable.Bowel sounds heard. NERVOUS SYSTEM: No focal deficits. The impression and plan of care has been dictated as directed. : I performed a history and examination of this patient, discussed the same with the dictator. I agree with the dictator's note ,documented as a scribe. Any additional findings or plans will be noted. Time taken: 35 minutes Patient Condition at Discharge: Stable Plan - Discharge Summary Discharge Rx Participant: No New Discharge Prescriptions: New diphenhydrAMINE [Benadryl] 50 mg PO Q6H PRN 2 Days #1 capsule PRN Reason: Allergic Reaction methylPREDNISolone Dose Pack [Medrol Dose Pack] 4 mg PO DIRECTED #21 package Continue Omeprazole 40 mg PO HS EPINEPHrine [Epipen 2-Maxime] 0.3 mg IM ONCE PRN #1 pack PRN Reason: Anaphylaxis Famotidine [Pepcid] 20 mg PO BID #28 tablet Lisinopril 20 mg PO HS Estradiol [Estrace] 1 mg PO DAILY Discharge Medication List Omeprazole 40 mg PO HS 09/30/16 [History] EPINEPHrine [Epipen 2-Maxime] 0.3 mg IM ONCE PRN #1 pack 06/12/18 [Rx] Famotidine [Pepcid] 20 mg PO BID #28 tablet 06/12/18 [Rx] Lisinopril 20 mg PO HS 06/12/18 [History] Estradiol [Estrace] 1 mg PO DAILY 07/26/18 [History] diphenhydrAMINE [Benadryl] 50 mg PO Q6H PRN 2 Days #1 capsule 07/27/18 [Rx] methylPREDNISolone Dose Pack [Medrol Dose Pack] 4 mg PO DIRECTED #21 package 07/27/18 [Rx] Follow up Appointment(s)/Referral(s): Yomi Montelongo DO [Primary Care Provider] - 08/07/18 11:40 am Discharge Disposition: HOME SELF-CARE
[2018-07-27] MEDS ORDERED: PANTOPRAZOLE 40 MG TABLET PO SCH (21:00)
== END 2018-07-27 11:04 | disposition home or self-care (01) ==
LOC: EC 21:49 → 3NMEDONC 07-27 04:02
PROVIDERS: ADMIT Family Medicine; ATTEND Family Medicine
DX: T63.441A Toxic effect of venom of bees, accidental (unintentional), initial encounter (principal); T78.2XXA Anaphylactic shock, unspecified, initial encounter; K21.9 Gastro-esophageal reflux disease without esophagitis; I10 Essential (primary) hypertension; Z79.890 Hormone replacement therapy; Z79.899 Other long term (current) drug therapy; Z88.5 Allergy status to narcotic agent; Z91.030 Bee allergy status; Z87.892 Personal history of anaphylaxis; Z91.89 Other specified personal risk factors, not elsewhere classified; Z87.81 Personal history of (healed) traumatic fracture; Z96.652 Presence of left artificial knee joint; Z90.710 Acquired absence of both cervix and uterus; Z83.3 Family history of diabetes mellitus; Z82.49 Family history of ischemic heart disease and other diseases of the circulatory system
CPT/HCPCS: 96372; 96374; 96375; 99291; 36415; 93005; G0378; J0171; J2060; J1200; J2930; J7512

== ENCOUNTER → 2018-09-29 | Outpatient (CLI) | payer MEDICARE ==
[2018-09-29 09:03] LABS: HCT 39.5 % (34.0-46.0); HGB 12.6 gm/dL (11.4-16.0); MCH 33.1 pg (25.0-35.0); MCHC 31.8 g/dL (31.0-37.0); MCV 104.2 fL (80.0-100.0); Macrocytosis Slight; Mean Platelet Volume 7.1; Platelet Count 264 k/uL (150-450); RBC 3.79 m/uL (3.80-5.40); RDW 13.5 % (11.5-15.5); WBC 7.3 k/uL (3.8-10.6)
[2018-09-29 11:40] LABS: Erythrocyte Sedimentation Rate 9 mm/hr (0-20)
[2018-10-03 06:56] LABS: Avocado Class CLASS 0; Banana IgE Class CLASS 0; Beef IgE <0.35 kU/L (<0.35); Beef IgE Class CLASS 0; Chicken IgE Class CLASS 0; Kiwi IgE <0.35 kU/L (<0.35); Paper Wasp IgE 1.74 kU/L (<0.35); Paper Wasp IgE Class CLASS II; Pork IgE Class CLASS 0; Yeast Bakers/Brew IgE <0.35 kU/L (<0.35)
[2018-10-03 06:57] LABS: Alt. alternata IgE Class CLASS 0; Alternaria alternata IgE <0.35 kU/L (<0.35); Asperg. fumagatus IgE <0.35 kU/L (<0.35); Asperg. fumagatus IgE Class CLASS 0; Aureo. pullulans IgE <0.35 kU/L (<0.35); Aureo. pullulans IgE Class CLASS 0; Birch(Com.Silvr) IgE <0.35 kU/L (<0.35); Birch(Com.Silvr) IgE Class CLASS 0; Candida albicans IgE Class CLASS 0; Clad herbarum IgE <0.35 kU/L (<0.35); Cottonwood IgE <0.35 kU/L (<0.35); Cow's Milk IgE Class CLASS 0; Egg White IgE <0.35 kU/L (<0.35); Epicoccum purpurascens Class CLASS 0; Epicoccum purpurascens IgE <0.35 kU/L (<0.35); Maple (Box Elder) IgE <0.35 kU/L (<0.35); Maple (Box Elder) IgE Class CLASS 0; Mucor racemosus IgE <0.35 kU/L (<0.35); Mucor racemosus IgE Class CLASS 0; Oak IgE <0.35 kU/L (<0.35); Peanut IgE <0.35 kU/L (<0.35); Potato IgE <0.35 kU/L (<0.35); Potato IgE Class CLASS 0; Rhizopus nigricans IgE <0.35 kU/L (<0.35); S.rostrata/Helminth Class CLASS 0; S.rostrata/Helminth IgE <0.35 kU/L (<0.35); Soybean IgE <0.35 kU/L (<0.35); Sycamore(Mpl.Lf) IgE <0.35 kU/L (<0.35); Walnut Tree IgE <0.35 kU/L (<0.35); Walnut Tree IgE Class CLASS 0; White Ash IgE Class CLASS 0; Yellow Hornet IgE 0.38 kU/L (<0.35)
[2018-10-03 13:23] LABS: Cat Epith & Dander IgE <0.35 kU/L (<0.35); Cat Epith & Dander IgE Class CLASS 0; Cockroach IgE <0.35 kU/L (<0.35); Com. Pigweed IgE <0.35 kU/L (<0.35); Com. Pigweed IgE Class CLASS 0; Dermato. Pteronyssinus IgE <0.35 kU/L (<0.35); Dermato. farinae IgE <0.35 kU/L (<0.35); Dermato. farinae IgE Class CLASS 0; Dog Dander IgE <0.35 kU/L (<0.35); English Plantain IgE Class CLASS 0; Johnson Grass IgE Class CLASS 0; Lamb's Quarter IgE <0.35 kU/L (<0.35); Lamb's Quarter IgE Class CLASS 0; Timothy Grass IgE <0.35 kU/L (<0.35)
== END | disposition home or self-care (01) ==
LOC: LABWHC1 08:22
PROVIDERS: ATTEND Otolaryngology
DX: L50.0 Allergic urticaria (principal)
CPT/HCPCS: 36415; 82785; 85027; 85652; 86001; 86003; 86038; 86140; 86160; 86161

== ENCOUNTER → 2020-03-10 | Outpatient (CLI) | payer BC, MEDICARE | END | disposition home or self-care (01) | LOC: LABWHC1 14:19 | PROVIDERS: ATTEND Family Medicine | DX: Z03.818 Encounter for observation for suspected exposure to other biological agents ruled out (principal) | CPT/HCPCS: U0003; C9803 ==

== ENCOUNTER → 2020-07-10 | Outpatient (CLI) | payer MEDICARE ==
--- NOTE | 2020-07-10 12:08 | FL ---
EXAMINATION TYPE: FL barium swallow w video DATE OF EXAM: 07/10/2020 MODIFIED SWALLOW / DEGLUTITION STUDY CLINICAL HISTORY: Dysphagia. Cough with eating. TECHNIQUE: Deglutition study is performed utilizing thin liquid barium, honey and nectar thick liqui d barium, barium thick applesauce, and barium coated cracker. 1 minute 47 seconds of fluoro time and 0 images obtained. COMPARISON: None. FINDINGS: The oral and pharyngeal phases show satisfactory initiation and propagation with all modali ties tested. Satisfactory mastication is seen with solid modalities tested. There is no evidence of penetration or aspiration with any modality tested. No significant pharyngeal residue was appreciate d. Note is made patient has C5-C6 ossific fusion. There is spondylolisthesis C4-C5 level with moderat e-to-severe disc space narrowing. There is moderate disc space narrowing C6-C7 level. Patient denies prior trauma or surgery. IMPRESSION: No penetration or aspiration observed. Please refer to speech therapist notes for furthe r details if necessary.
== END | disposition home or self-care (01) ==
LOC: RADFLMAIN 10:58
PROVIDERS: ATTEND Family Medicine
DX: R13.10 Dysphagia, unspecified (principal)
CPT/HCPCS: 74230

== ENCOUNTER 2021-11-02 18:29 | Emergency (ER) | payer MEDICARE ==
[2021-11-02 18:55] VITALS: BP 129/79; PULSE 74; RESP 18; TEMP 97.4
[2021-11-02] MEDS ORDERED: KETOROLAC 15 MG/ML 1 ML VIAL IM STA (19:08)
[2021-11-02] MEDS ORDERED: ACETAMINOPHEN TAB 500 MG TAB PO STA (19:09)
--- NOTE | 2021-11-02 19:14 | ED ---
Upper Extremity HPI - General Chief Complaint: Extremity Injury, Upper Stated Complaint: r arm injury Time Seen by Provider: 11/02/21 19:00 Source: patient, RN notes reviewed Mode of arrival: ambulatory Limitations: no limitations - History of Present Illness Initial Comments: This is a pleasant 71-year-old female. She has a history of hypertension and acid reflux. Patient states that she fell out of bed this morning and injured her right shoulder, right upper arm, and right rib area. Patient denying any other injuries. There is no head or neck pain. Patient not on blood thinners. No head or neck injury. No pain or injury to other extremities. No low back pain. No paresthesias. Patient had no preceding symptomology. This sounds a mechanical fall. Patient has a history of an inoperable lower back fracture. No headache, no fever or chills, no changes in vision or hearing, no sore throat or difficulty with speech, no neck pain, no chest pain or shortness of breath, no abdominal pain, no nausea or vomiting, no changes in urination or bowel movements, no numbness or tingling, no skin rashes or lesions. Past medical, surgical, social, and family history reviewed. MD Complaint: Injury to:: right, shoulder, arm - Related Data Home Medications Medication Instructions Recorded Confirmed Omeprazole 40 mg PO HS 09/30/16 07/26/18 lisinopriL 20 mg PO HS 06/12/18 07/26/18 estradioL [Estrace] 1 mg PO DAILY 07/26/18 07/26/18 Previous Rx's Medication Instructions Recorded EPINEPHrine [Epipen 2-Maxime] 0.3 mg IM ONCE PRN #1 pack 06/12/18 Famotidine [Pepcid] 20 mg PO BID #28 tablet 06/12/18 diphenhydrAMINE [Benadryl] 50 mg PO Q6H PRN 2 Days #1 capsule 07/27/18 methylPREDNISolone Dose Pack 4 mg PO DIRECTED #21 package 07/27/18 [Medrol Dose Pack] Acetaminophen Tab [Tylenol Tab] 500 mg PO Q6H PRN #24 tablet 11/02/21 Naproxen [Naprosyn] 375 mg PO Q12HR PRN #20 tablet 11/02/21 Allergies Allergy/AdvReac Type Severity Reaction Status Date / Time morphine Allergy Itching Verified 11/02/21 18:55 venom-honey bee Allergy Anaphylaxis Verified 11/02/21 18:55 [bee venom (honey bee)] Review of Systems ROS Statement: Those systems with pertinent positive or pertinent negative responses have been documented in the HPI. ROS Other: All systems not noted in ROS Statement are negative. Past Medical History Past Medical History: GERD/Reflux, Hypertension Additional Past Medical History / Comment(s): TYLENOL OVERDOSE YEARS AGO,"I DIDN'T PAY ATTENTION TO DOSAGE BECAUSE MY BACK PAIN WAS SO BAD". RESULTED IN MULTI-SYSTEM FAILURE, INOPERABLE LOWER BACK FRACTURE. History of Any Multi-Drug Resistant Organisms: None Reported Past Surgical History: Back Surgery, Joint Replacement, Orthopedic Surgery Additional Past Surgical History / Comment(s): TOTAL LEFT ARTHROPLASTY X2, D&C X5, TOTAL HYSTERECTOMY, RIGHT 5TH FINGER CYST REMOVAL, BILATERAL EYELID LIFT SURGERY. Past Anesthesia/Blood Transfusion Reactions: No Reported Reaction Past Psychological History: No Psychological Hx Reported Past Alcohol Use History: None Reported Past Drug Use History: None Reported - Past Family History Mother Family Medical History: Diabetes Mellitus, Myocardial Infarction ([place]) Additional Family Medical History / Comment(s): pts. mother at age 71 from an [place] Son(s) Family Medical History: Diabetes Mellitus Father Family Medical History: Liver Disease Additional Family Medical History / Comment(s): PTS. FATHER AT AGE 47 SECONDARY TO ETOH General Exam - General Exam Comments Initial Comments: Patient mild distress secondary to orthopedic injury to her right shoulder/arm and right rib area. Patient in no respiratory distress. Cranial nerves II through XII intact. Patient does not appear to be ill or toxic. Vital signs stable, patient afebrile. Limitations: no limitations General appearance: alert, in no apparent distress Head exam: Present: atraumatic, normocephalic, normal inspection Eye exam: Present: normal appearance, PERRL, EOMI. Absent: scleral icterus, conjunctival injection, periorbital swelling ENT exam: Present: normal exam, normal oropharynx, mucous membranes moist, TM's normal bilaterally Neck exam: Present: normal inspection, full ROM. Absent: tenderness, meningismus, lymphadenopathy Respiratory exam: Present: normal lung sounds bilaterally, chest wall tenderness (Patient has tenderness to the right chest wall over the right mid lower rib area. No crepitus. No deformity. No bruising.). Absent: respiratory distress, wheezes, rales, rhonchi, stridor, accessory muscle use Cardiovascular Exam: Present: regular rate, normal rhythm, normal heart sounds. Absent: systolic murmur, diastolic murmur, rubs, gallop, clicks GI/Abdominal exam: Present: soft, normal bowel sounds. Absent: distended, tenderness, guarding, rebound, rigid Extremities exam: Present: normal inspection, full ROM, normal capillary refill. Absent: tenderness, pedal edema, joint swelling, calf tenderness Right Shoulder Exam: Present: normal inspection, tenderness, other (Appears to be consistent with soft tissue tenderness to the right deltoid area and right upper arm area.). Absent: full ROM (Limited secondary to pain), swelling, abrasion, laceration, ecchymosis, deformity, crepitus, dislocation, erythema, tenderness over AC joint Upper Arm exam: Present: normal inspection, tenderness. Absent: abrasion, deformity Elbow exam: Present: normal inspection, full ROM. Absent: tenderness Forearm Wrist exam: Present: normal inspection, full ROM. Absent: tenderness Hand Wrist exam: Present: normal inspection, full ROM. Absent: tenderness Neuro motor exam: Present: wrist extension intact, thumb opposition intact, thumb IP flexion intact, thumb adduction intact, fingers 2-5 abduction intact Neurosensory exam: Present: 2-point discrimination, radial nerve intact, ulnar nerve intact, median nerve intact Vascular: Present: normal capillary refill. Absent: vascular compromise, Pallo, pulse deficit radial art, pulse deficit ulnar art Back exam: Present: normal inspection, full ROM, tenderness, paraspinal tenderness (Minimal right thoracic spine or paraspinal tenderness. No midline tenderness to the cervical, thoracic, lumbar spine.). Absent: CVA tenderness (R), CVA tenderness (L), muscle spasm, vertebral tenderness, rash noted Neurological exam: Present: alert, oriented X3, CN II-XII intact Psychiatric exam: Present: normal affect, normal mood Skin exam: Present: warm, dry, intact, normal color. Absent: rash Course Vital Signs 11/02/21 18:53 Temperature 97.4 F L Pulse Rate 74 Respiratory 18 Rate Blood Pressure 129/79 O2 Sat by Pulse 100 Oximetry - Reevaluation(s) Reevaluation #1: 11/02/21 21:04 Medical record is reviewed Symptoms are improved here in the emergency department Patient is informed of results and questions answered Patient in no distress Medical Decision Making - Medical Decision Making She presents with what appears to be injuries from Fall. Likely soft tissue injuries. We'll order plain film x-rays to rule out fracture. There was no head or neck injury. Patient neurologically intact tach. No blood thinners. X-rays were free of any acute pathology. Patient was improved after the Toradol LAC and acetaminophen. Evaluated the patient. Vital signs stable, patient afebrile. Patient in no distress. Discussed the findings with the patient and her . Patient was told to return to the ER for any signs or symptoms worsen. Told to return immediately if any other problems arise. All questions answered. Treatment plan discussed. Patient in agreement Every effort has been made to ensure accuracy of this dictation. However, due to the limitations of electronic medical records and dictation devices, errors in charting still occur. Activities Coordinator Dr. Rangel - Radiology Data Radiology results: report reviewed, image reviewed Disposition Clinical Impression: Injury of right rotator cuff, Contusion, chest wall, Muscle strain of upper back Disposition: HOME SELF-CARE Condition: Good Instructions (If sedation given, give patient instructions): Rotator Cuff Injury (ED) Additional Instructions: Follow-up with your regular physician as directed. Return to the ER immediately if any symptoms worsen, new symptoms arise, or any other problems develop. Is patient prescribed a controlled substance at d/c from ED?: No Referrals: Yomi Montelongo DO [Primary Care Provider] - 1-2 days Greg Meredith MD [Medical Doctor] - 11/06/21 Time of Disposition: 21:05
--- NOTE | 2021-11-02 19:54 | XR ---
EXAMINATION TYPE: XR shoulder complete RT DATE OF EXAM: 11/02/2021 COMPARISON: NONE HISTORY: Pain TECHNIQUE: 3 views FINDINGS: The glenohumeral joint is intact. I see no fracture nor dislocation. Joint spaces are fairl y normal. IMPRESSION: Negative right shoulder exam. No fracture.
--- NOTE | 2021-11-02 20:00 | XR ---
EXAMINATION TYPE: XR humerus RT DATE OF EXAM: 11/02/2021 COMPARISON: NONE HISTORY: Pain TECHNIQUE: 2 views FINDINGS: Shoulder joint and elbow joint appear intact. I see no fracture nor dislocation. IMPRESSION: Negative right humerus exam
--- NOTE | 2021-11-02 20:38 | XR ---
EXAMINATION TYPE: XR ribs RT w pa chest xray DATE OF EXAM: 11/02/2021 COMPARISON: NONE HISTORY: Pain TECHNIQUE: 5 views FINDINGS: There is no pleural effusion or pneumothorax. The right lung is clear of infiltrate. Right shoulder joint is intact. No evidence of right-sided rib fracture. The heart and mediastinum are norm al. There are no hilar masses. IMPRESSION: No active cardiopulmonary disease. No evidence of rib fracture.
== END 2021-11-02 21:40 | disposition home or self-care (01) ==
LOC: EC 18:29
DX: S40.011A Contusion of right shoulder, initial encounter (principal); I10 Essential (primary) hypertension; K21.9 Gastro-esophageal reflux disease without esophagitis; Z79.83 Long term (current) use of bisphosphonates; Z82.49 Family history of ischemic heart disease and other diseases of the circulatory system; Z88.5 Allergy status to narcotic agent; Z91.030 Bee allergy status; W06.XXXA Fall from bed, initial encounter
CPT/HCPCS: 71101; 73030; 73060; 99283; 96372; J1885

== ENCOUNTER 2022-02-09 08:35 | Day surgery (SDC) | payer MEDICARE ==
[2022-02-09] MEDS ORDERED: LACTATED RINGERS 1,000 ML IV ONE (09:02)
[2022-02-09 09:04] VITALS: TEMP 96.9
[2022-02-09] MEDS ORDERED: PROPOFOL 10 MG/ML 20 ML VIAL IV ONE (09:28)
[2022-02-09] MEDS ORDERED: LIDOCAINE 2% INJ 20 MG/ML (2 ML VIAL) ONE (09:28)
--- NOTE | 2022-02-09 09:38 | P.PCN ---
Date of Procedure: 02/09/22 Procedure(s) Performed: BRIEF HISTORY: Patient is a 71-year-old, pleasant, white female scheduled for an upper endoscopy as a part of evaluation of long-standing history of GERD.. Recently was started on Pepcid 20 mg twice daily with some help. PROCEDURE PERFORMED: Esophagogastroduodenoscopy with biopsy. PREOPERATIVE DIAGNOSIS: Long-standing history of GERD. IV sedation per anesthesia. PROCEDURE: After informed consent was obtained, the patient was brought into the endoscopy unit. IV sedation was administered by Anesthesia under continuous monitoring. Initially the Olympus GIF-140 video endoscope was inserted into the mouth. Esophagus intubated without any difficulty. It was gradually advanced into the stomach and duodenum and carefully examined. The bulb and the second part of the duodenum appeared normal. The scope at this time was withdrawn to the stomach, adequately insufflated with air, and upon careful examination, mucosa of the antrum, body, cardia and the fundus appeared normal. The scope was then withdrawn into the esophagus. The GE junction was located at 32 cm from the incisors. Moderate size hiatal hernia noted. There were linear erosions or ulcerations noted in the distal esophagus consistent with LA grade C reflux esophagitis. Abscesses were done from the distal esophagus. He had mild gastritis and biopsies were done from this area. Mucosa of the The rest of the esophagus appeared normal. The patient tolerated the procedure well. IMPRESSION: 1. Linear erosions and ulcerations in the distal esophagus consistent with LA grade C reflux esophagitis. 2. Moderate size hiatal hernia 3. Mild antral gastritis. RECOMMENDATIONS: The findings of this examination were discussed with the patient as well as a family. She was advised to follow with the biopsy results. She was advised to stop the Pepcid and instrument she'll be given a prescription for Prilosec 20 mg twice daily and was briefly educated about antireflux measures. She will continue with Protonix twice daily for 4 months and Endo Clip placement times daily as a maintenance for reflux disease.
[2022-02-09 09:43] VITALS: RESP 16
[2022-02-09 09:59] VITALS: BP 117/72; PULSE 81
== END 2022-02-09 10:17 | disposition home or self-care (01) ==
LOC: ORWHC2ENDO 08:35
PROVIDERS: ATTEND Internal Medicine Gastroenterology
DX: K22.10 Ulcer of esophagus without bleeding (principal); K29.50 Unspecified chronic gastritis without bleeding; K44.9 Diaphragmatic hernia without obstruction or gangrene
CPT/HCPCS: 88305; 43239; J2704; J2001; 88312

== ENCOUNTER → 2022-10-25 | Outpatient (CLI) | payer MEDICARE ==
--- NOTE | 2022-10-26 12:10 | CA ---
Transthoracic Echo Report Name: Rosemary Gray Age: 72 Gender: F : 1950 Exam Date: 10/25/2022 14:33 Exam Location: [facility] Ht (in): 60 Wt (lb): 113 Ordering Physician: Yomi Montleongo DO Attending/Referring Phys: Marietta Hunter NPC Social Worker Assistant Lili Garcia RDCS Procedure CPT: Indications: I10 HTN Cardiac Hx: Technical Quality: Fair Contrast 1: Total Dose (mL): Contrast 2: Total Dose (mL): MEASUREMENTS (Male / Female) Normal Values 2D ECHO LV Diastolic Diameter PLAX 4.1 cm 4.2 - 5.9 / 3.9 - 5.3 cm LV Systolic Diameter PLAX 2.2 cm IVS Diastolic Thickness 1.0 cm 0.6 - 1.0 / 0.6 - 0.9 cm LVPW Diastolic Thickness 1.2 cm 0.6 - 1.0 / 0.6 - 0.9 cm LV Relative Wall Thickness 0.5 RV Internal Dim ED PLAX 3.5 cm M-MODE Aortic Root Diameter MM 3.1 cm LA Systolic Diameter MM 4.2 cm LA Ao Ratio MM 1.4 AV Cusp Separation MM 1.6 cm DOPPLER AV Peak Velocity 162.3 cm/s AV Peak Gradient 10.5 mmHg AV Mean Velocity 110.0 cm/s AV Mean Gradient 5.3 mmHg AV Velocity Time Integral 36.0 cm LVOT Peak Velocity 101.8 cm/s LVOT Peak Gradient 4.1 mmHg LVOT Velocity Time Integral 21.6 cm Mitral E Point Velocity 62.7 cm/s Mitral A Point Velocity 70.7 cm/s Mitral E to A Ratio 0.9 MV Deceleration Time 265.7 ms MV E' Velocity 5.6 cm/s Mitral E to MV E' Ratio 11.2 TR Peak Velocity 313.8 cm/s TR Peak Gradient 39.4 mmHg Right Ventricular Systolic Press 49.5 mmHg FINDINGS Left Ventricle Mildly increased left ventricular wall thickness. Left ventricular cavity size normal. Normal left ventricular systolic function with no obvious regional wall motion abnormalities. Left ventricular ejection fraction is estimated at 55-60 %. Right Ventricle Normal right ventricular size and function. Moderate pulmonary hypertension. Right ventricular systolic pressure estimated at 50 mm hg. Right Atrium Moderate right atrial dilatation. Left Atrium Moderate left atrial dilatation. Mitral Valve Structurally normal mitral valve. Mitral valve thickened. Moderate mitral annular calcification. [id number] mitral regurgitation. Aortic Valve Trileaflet aortic valve. No aortic valve stenosis or regurgitation. Aortic valve sclerosis. Tricuspid Valve Structurally normal tricuspid valve. Moderate tricuspid regurgitation. Pulmonic Valve Structurally normal pulmonic valve. Mild pulmonic regurgitation. Pericardium No pericardial effusion. Aorta Normal size aortic root and proximal ascending aorta. CONCLUSIONS LVH with preserved systolic function Biatrial enlargement Previewed by: Dr. Wenceslao Fowler MD (Electronically Signed) Final Date: 26 October 2022 12:08
== END | disposition home or self-care (01) ==
LOC: RADECHMAIN 14:25
PROVIDERS: ATTEND Family Medicine
DX: I11.9 Hypertensive heart disease without heart failure (principal)
CPT/HCPCS: 93306

== ENCOUNTER 2023-03-03 19:32 | Emergency (ER) | payer MEDICARE ==
[2023-03-03 19:53] VITALS: BP 162/93; PULSE 93; RESP 18; TEMP 98.8
[2023-03-03 20:02] LABS: Basophils # (A) 0.1 k/uL (0-0.2); Basophils % (A) 1 %; Eosinophils # (A) 0.4 k/uL (0-0.7); Eosinophils % (A) 4 %; HCT 38.7 % (34.0-46.0); HGB 12.8 gm/dL (11.4-16.0); Lymphocytes # (A) 1.6 k/uL (1.0-4.8); Lymphocytes % (A) 17 %; MCH 31.2 pg (25.0-35.0); MCHC 32.9 g/dL (31.0-37.0); MCV 94.7 fL (80.0-100.0); Mean Platelet Volume 8.1; Monocytes # (A) 0.7 k/uL (0-1.0); Monocytes % (A) 8 %; Neutrophils # (A) 6.3 k/uL (1.3-7.7); Neutrophils % (A) 68 %; Platelet Count 386 k/uL (150-450); RBC 4.09 m/uL (3.80-5.40); RDW 13.6 % (11.5-15.5); WBC 9.3 k/uL (3.8-10.6)
[2023-03-03 20:15] LABS: ALT 16 U/L (4-34); AST 28 U/L (14-36); African American GFR (CKD) 59 (>60 ml/min/1.73 sqM); Albumin 4.8 g/dL (3.5-5.0); Alkaline Phosphatase 92 U/L (38-126); Anion Gap 16 mmol/L; Blood Urea Nitrogen 20 mg/dL (7-17); Calcium 10.3 mg/dL (8.4-10.2); Carbon Dioxide 23 mmol/L (22-30); Chloride 98 mmol/L (98-107); Glucose 119 mg/dL (74-99); Magnesium 1.5 mg/dL (1.6-2.3); Non-African American GFR(CKD) 51 (>60 ml/min/1.73 sqM); Potassium 3.6 mmol/L (3.5-5.1); Sodium 137 mmol/L (137-145); Total Bilirubin 0.8 mg/dL (0.2-1.3); Total Protein 8.4 g/dL (6.3-8.2)
[2023-03-03 20:21] LABS: Prothrombin Time 10.5 sec (10.0-12.5)
[2023-03-03 20:47] LABS: Partial Thromboplastin Time 21.3 sec (22.0-30.0)
== END 2023-03-03 22:50 | disposition left against medical advice (07) ==
LOC: EC 19:32
DX: Z53.21 Procedure and treatment not carried out due to patient leaving prior to being seen by health care provider (principal); R07.89 Other chest pain
CPT/HCPCS: 36415; 80053; 83735; 84484; 85025; 85610; 85730; 93005; 99499

== ENCOUNTER 2023-03-04 11:09 | Inpatient (IN) | payer MEDICARE ==
[2023-03-04] MEDS ORDERED: IOPAMIDOL CONTRAST (ORAL USE) VIAL PO PRN (12:00)
[2023-03-04] MEDS ORDERED: SODIUM CHLORIDE 0.9% 1,000 ML IV STA (12:02)
[2023-03-04] MEDS ORDERED: ONDANSETRON 4 MG/2 ML VIAL IVP STA (12:02)
[2023-03-04] MEDS ORDERED: KETOROLAC 15 MG/ML 1 ML VIAL IVP STA (12:03)
[2023-03-04 12:17] LABS: Basophils # (A) 0.1 k/uL (0-0.2); Basophils % (A) 1 %; Eosinophils # (A) 0.1 k/uL (0-0.7); Eosinophils % (A) 1 %; HCT 39.5 % (34.0-46.0); Lymphocytes # (A) 1.2 k/uL (1.0-4.8); Lymphocytes % (A) 10 %; MCH 31.3 pg (25.0-35.0); MCV 94.8 fL (80.0-100.0); Mean Platelet Volume 7.5; Monocytes # (A) 0.8 k/uL (0-1.0); Monocytes % (A) 7 %; Neutrophils # (A) 9.6 k/uL (1.3-7.7); Neutrophils % (A) 80 %; Platelet Count 390 k/uL (150-450); RBC 4.17 m/uL (3.80-5.40); RDW 13.6 % (11.5-15.5); WBC 11.9 k/uL (3.8-10.6)
[2023-03-04 12:32] LABS: INR 0.9 (<1.2); Partial Thromboplastin Time 22.7 sec (22.0-30.0); Prothrombin Time 10.5 sec (10.0-12.5)
[2023-03-04 12:39] LABS: Lactic Acid, Venous 1.4 mmol/L (0.7-2.0)
[2023-03-04 12:41] LABS: ALT 17 U/L (4-34); AST 28 U/L (14-36); African American GFR (CKD) 40 (>60 ml/min/1.73 sqM); Albumin 5.1 g/dL (3.5-5.0); Alkaline Phosphatase 94 U/L (38-126); Anion Gap 19 mmol/L; Blood Urea Nitrogen 26 mg/dL (7-17); Calcium 10.7 mg/dL (8.4-10.2); Carbon Dioxide 27 mmol/L (22-30); Chloride 95 mmol/L (98-107); Glucose 129 mg/dL (74-99); Non-African American GFR(CKD) 35 (>60 ml/min/1.73 sqM); Potassium 3.9 mmol/L (3.5-5.1); Sodium 141 mmol/L (137-145); Total Bilirubin 0.6 mg/dL (0.2-1.3); Total Protein 8.9 g/dL (6.3-8.2)
--- NOTE | 2023-03-04 13:42 | ED ---
General Adult HPI - General Chief complaint: GI Bleed Stated complaint: Vomiting Blood Time Seen by Provider: 03/04/23 11:29 Source: patient, family Mode of arrival: wheelchair - History of Present Illness Initial comments: 72-year-old female presenting to the ED with a chief complaint of hematemesis. Patient is a poor historian. However does note some generalized weakness for the past 2 weeks. Also notes over the past week has had some dark tarry stools. Past 3 days, patient family note hematemesis. Notes history of GERD. Patient states she is an occasional drinker. Patient is a nonsmoker. Denied chest pain or shortness of breath. Family notes that the patient was treated for UTI 2 weeks ago in fear that her symptoms may be related to this. Patient denies feve r or chills. No other complaints. - Related Data Home Medications Medication Instructions Recorded Confirmed ALPRAZolam [Xanax] 0.5 mg PO HS PRN 02/08/22 03/04/23 Famotidine [Pepcid] 20 mg PO HS 02/08/22 03/04/23 Gabapentin 300 mg PO BID PRN 02/08/22 03/04/23 Losartan/Hydrochlorothiazide 1 tab PO DAILY 02/08/22 03/04/23 [Losartan-Hctz 100-12.5 mg Tab] Cephalexin [Keflex] 500 mg PO Q12HR 03/04/23 03/04/23 Famotidine [Pepcid] 20 mg PO HS 03/04/23 03/04/23 Furosemide [Lasix] 20 mg PO DAILY 03/04/23 03/04/23 Omeprazole 40 mg PO HS 03/04/23 03/04/23 Ondansetron Odt [Zofran Odt] 4 mg PO Q6H PRN 03/04/23 03/04/23 amLODIPine [Norvasc] 10 mg PO DAILY 03/04/23 03/04/23 Previous Rx's Medication Instructions Recorded EPINEPHrine [Epipen 2-Maxime] 0.3 mg IM ONCE PRN #1 pack 06/12/18 Acetaminophen Tab [Tylenol Tab] 500 mg PO Q6H PRN #24 tablet 11/02/21 Allergies Allergy/AdvReac Type Severity Reaction Status Date / Time morphine Allergy Itching Verified 03/04/23 13:47 venom-honey bee Allergy Anaphylaxis Verified 03/04/23 13:47 [bee venom (honey bee)] Review of Systems ROS Statement: Those systems with pertinent positive or pertinent negative responses have been documented in the HPI. ROS Other: All systems not noted in ROS Statement are negative. Past Medical History Past Medical History: GERD/Reflux, Hypertension Additional Past Medical History / Comment(s): TYLENOL OVERDOSE YEARS AGO,"I DIDN'T PAY ATTENTION TO DOSAGE BECAUSE MY BACK PAIN WAS SO BAD". 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 INOPERABLE LOWER BACK FRACTURE, CHRONIC BACK PAIN (FALL FROM LADDER, ABOUT 20 YEARS). History of Any Multi-Drug Resistant Organisms: None Reported Past Surgical History: Back Surgery, Joint Replacement, Orthopedic Surgery Additional Past Surgical History / Comment(s): TOTAL LEFT ARTHROPLASTY X2. D&C X5, TOTAL HYSTERECTOMY, RIGHT 5TH FINGER CYST REMOVAL, BILATERAL EYELID LIFT SURGERY. ORIF RIGHT FOOT Past Anesthesia/Blood Transfusion Reactions: No Reported Reaction Past Psychological History: No Psychological Hx Reported Smoking Status: Never smoker Past Alcohol Use History: None Reported Past Drug Use History: None Reported - Past Family History Mother Family Medical History: Diabetes Mellitus, Myocardial Infarction ([place]) Additional Family Medical History / Comment(s): pts. mother at age 71 from an [place] Son(s) Family Medical History: Diabetes Mellitus Father Family Medical History: Liver Disease Additional Family Medical History / Comment(s): PTS. FATHER AT AGE 47 SECONDARY TO ETOH General Exam General appearance: alert, in no apparent distress Eye exam: Present: normal appearance Neck exam: Present: normal inspection Respiratory exam: Present: normal lung sounds bilaterally GI/Abdominal exam: Present: soft Neurological exam: Present: alert, oriented X3 Skin exam: Present: warm, dry Course Vital Signs 03/04/23 03/04/23 03/04/23 11:16 12:15 13:14 Temperature 98.6 F Pulse Rate 96 75 78 Respiratory 18 16 18 Rate Blood Pressure 158/99 159/77 139/72 O2 Sat by Pulse 98 97 97 Oximetry 03/04/23 03/04/23 03/04/23 14:12 15:00 15:25 Temperature 98.9 F Pulse Rate 81 72 Respiratory 20 17 Rate Blood Pressure 140/67 143/72 O2 Sat by Pulse 97 93 L 89 L Oximetry 03/04/23 03/04/23 03/04/23 15:26 16:02 19:03 Temperature 100.1 F H Pulse Rate 76 75 Respiratory 16 16 Rate Blood Pressure 126/65 143/76 O2 Sat by Pulse 95 96 99 Oximetry Procedures - Procedures Initial comment: Placed a 14-Maldivian NG tube. Patient to the procedure well with no difficulties. X-ray obtained confirming placement. Medical Decision Making - Medical Decision Making Was pt. sent in by a medical professional or institution (, PA, SOCIAL MEDIA MARKETING SPECIALIST, urgent care, hospital, or penitentiary...) When possible be specific @ -No Did you speak to anyone other than the patient for history (EMS, parent, family, police, friend...)? What history was obtained from this source @ -Spoke to both patient and family for history. For further details please see HPI. Did you review nursing and triage notes (agree or disagree)? Why? @ -I reviewed and agree with nursing and triage notes Were old charts reviewed (outside hosp., previous admission, EMS record, old EKG, old radiological studies, urgent care reports/EKG's, penitentiary records)? Report findings @ -No old charts were reviewed Differential Diagnosis (chest pain, altered mental status, abdominal pain women, abdominal pain men, vaginal bleeding, weakness, fever, dyspnea, syncope, headache, dizziness, GI bleed, back pain, seizure, CVA, palpatations, mental health, musculoskeletal)? @ -Differential GI Bleed: Esophageal varices, aortoenteric fistula, Alda-Wells, gastritis, peptic ulcer disease, diverticulosis, inflammatory bowel disease, hemorrhoids, fissure, colitis, malignancy, Meckels diverticulum, this is not meant to be an all- inclusive list. EKG interpreted by me (3pts min.). @ -As above X-rays interpreted by me (1pt min.). @ -None done CT interpreted by me (1pt min.). @ -None done U/S interpreted by me (1pt. min.). @ -None done What testing was considered but not performed or refused? (CT, X-rays, U/S, la bs)? Why? @ -None What meds were considered but not given or refused? Why? @ -None Did you discuss the management of the patient with other professionals (professionals i.e. , BARB, SOCIAL MEDIA MARKETING SPECIALIST, lab, RT, psych nurse, transition social worker, attorney lawyer, teacher, medical officer, watch caser)? Give summary @ -Case discussed with JONATHAN De La Rosa occupational medicine physician at [facility], who reported would see the patient if accepted. Case discussed with Dr. Morrow, who reports is unable to take transfer unless she had a procedure done at their facility within the week. Case discussed with JONATHAN Mazariegos occupational medicine physician at [facility], who reports that the patient is stable for outpatient follow up. Recommended starting the patient on a PPI. Case discussed with Angela of [facility], who will accept admission if surgery is in agreement with consult and plan of care. Case discussed with Dr. Castro of general surgery who is in agreement with consult and plan of care. Was smoking cessation discussed for >3mins.? @ -No Was critical care preformed (if so, how long)? @ -No Were there social determinants of health that impacted care today? How? (Ho melessness, low income, unemployed, alcoholism, drug addiction, transportation, low edu. Level, literacy, decrease access to med. care, senior living, rehab)? @ -No Was there de-escalation of care discussed even if they declined (Discuss DNR or withdrawal of care, Hospice)? DNR status @ -No What co-morbidities impacted this encounter? (DM, HTN, Smoking, COPD, CAD, Cancer, CVA, ARF, Chemo, Hep., AIDS, mental health diagnosis, sleep apnea, morbid obesity)? @ -None Was patient admitted / discharged? Hospital course, mention meds given and route, prescriptions, significant lab abnormalities, going to OR and other pertinent info. @ -Admission 72-year-old female presenting to the ED with complaints of generalized weakness past 2 weeks and the last week notes has had dark tarry stools. Over the last 3 days has had hematemesis. Laboratory studies reviewed. CBC significant for an elevated white blood cell count 11.9 and elevated neutrophils at 9.6. Chemistry panel significant for evidence of kidney injury with a BUN of 26 and creatinine of 1.51. Occult blood is pending at 8:18 PM however this was received by lab at 12 PM. Attempted to call lab twice for this result however received no answer. UA also pending at this time as patient is unable to urinate. Patient will be admitted to the hospital for gentle hydration and endoscopy. Plan of care with patient and family who are in agreement. Discussed plan of care with patient and family who are in agreement. Undiagnosed new problem with uncertain prognosis? @ -No Drug Therapy requiring intensive monitoring for toxicity (Heparin, Nitro, Insulin, Cardizem)? @ -No Were any procedures done? @ -No Diagnosis/symptom? @ -Hematemesis Acute, or Chronic, or Acute on Chronic? @ -Acute Uncomplicated (without systemic symptoms) or Complicated (systemic symptoms)? @ -Uncomplicated Side effects of treatment? @ -No Exacerbation, Progression, or Severe Exacerbation? @ -No Poses a threat to life or bodily function? How? (Chest pain, [place], [place], pneumonia, PE, COPD, DKA, ARF, appy, cholecystitis, CVA, Diverticulitis, Homicidal, Suicidal, threat to staff... and all critical care pts) @ -No - Lab Data Result diagrams: 03/04/23 12:05 03/04/23 12:05 Lab Results 03/04/23 03/04/23 03/04/23 Range/Units 12:00 12:05 12:05 WBC 11.9 H (3.8-10.6) k/uL RBC 4.17 (3.80-5.40) m/uL Hgb 13.0 (11.4-16.0) gm/dL Hct 39.5 (34.0-46.0) % MCV 94.8 (80.0-100.0) fL MCH 31.3 (25.0-35.0) pg MCHC 33.0 (31.0-37.0) g/dL RDW 13.6 (11.5-15.5) % Plt Count 390 (150-450) k/uL MPV 7.5 Neutrophils % 80 % Lymphocytes % 10 % Monocytes % 7 % Eosinophils % 1 % Basophils % 1 % Neutrophils # 9.6 H (1.3-7.7) k/uL Lymphocytes # 1.2 (1.0-4.8) k/uL Monocytes # 0.8 (0-1.0) k/uL Eosinophils # 0.1 (0-0.7) k/uL Basophils # 0.1 (0-0.2) k/uL PT (10.0-12.5) sec INR (<1.2) APTT (22.0-30.0) sec Sodium (137-145) mmol/L Potassium (3.5-5.1) mmol/L Chloride (98-107) mmol/L Carbon Dioxide (22-30) mmol/L Anion Gap mmol/L BUN (7-17) mg/dL Creatinine (0.52-1.04) mg/dL Est GFR (CKD-EPI)AfAm (>60 ml/min/1.73 sqM) Est GFR (CKD-EPI)NonAf (>60 ml/min/1.73 sqM) Glucose (74-99) mg/dL Plasma Lactic Acid Alfonso (0.7-2.0) mmol/L Calcium (8.4-10.2) mg/dL Total Bilirubin (0.2-1.3) mg/dL AST (14-36) U/L ALT (4-34) U/L Alkaline Phosphatase (38-126) U/L Ammonia (<30) umol/L Troponin I (0.000-0.034) ng/mL Total Protein (6.3-8.2) g/dL Albumin (3.5-5.0) g/dL Stool Occult Blood Negative (Negative) Blood Type O Positive Blood Type Confirm Blood Type Recheck No Previous Record Bld Type Recheck Status CABO Indicated Antibody Screen NEGATIVE Spec Expiration Date 03/07/2023 - 229903/04/23 03/04/23 03/04/23 Range/Units 12:05 12:05 12:05 WBC (3.8-10.6) k/uL RBC (3.80-5.40) m/uL Hgb (11.4-16.0) gm/dL Hct (34.0-46.0) % MCV (80.0-100.0) fL MCH (25.0-35.0) pg MCHC (31.0-37.0) g/dL RDW (11.5-15.5) % Plt Count (150-450) k/uL MPV Neutrophils % % Lymphocytes % % Monocytes % % Eosinophils % % Basophils % % Neutrophils # (1.3-7.7) k/uL Lymphocytes # (1.0-4.8) k/uL Monocytes # (0-1.0) k/uL Eosinophils # (0-0.7) k/uL Basophils # (0-0.2) k/uL PT 10.5 (10.0-12.5) sec INR 0.9 (<1.2) APTT 22.7 (22.0-30.0) sec Sodium 141 (137-145) mmol/L Potassium 3.9 (3.5-5.1) mmol/L Chloride 95 L (98-107) mmol/L Carbon Dioxide 27 (22-30) mmol/L Anion Gap 19 mmol/L BUN 26 H (7-17) mg/dL Creatinine 1.51 H (0.52-1.04) mg/dL Est GFR (CKD-EPI)AfAm 40 (>60 ml/min/1.73 sqM) Est GFR (CKD-EPI)NonAf 35 (>60 ml/min/1.73 sqM) Glucose 129 H (74-99) mg/dL Plasma Lactic Acid Alfonso (0.7-2.0) mmol/L Calcium 10.7 H (8.4-10.2) mg/dL Total Bilirubin 0.6 (0.2-1.3) mg/dL AST 28 (14-36) U/L ALT 17 (4-34) U/L Alkaline Phosphatase 94 (38-126) U/L Ammonia (<30) umol/L Troponin I <0.012 (0.000-0.034) ng/mL Total Protein 8.9 H (6.3-8.2) g/dL Albumin 5.1 H (3.5-5.0) g/dL Stool Occult Blood (Negative) Blood Type Blood Type Confirm Blood Type Recheck Bld Type Recheck Status Antibody Screen Spec Expiration Date 03/04/23 03/04/23 Range/Units 12:05 12:05 WBC (3.8-10.6) k/uL RBC (3.80-5.40) m/uL Hgb (11.4-16.0) gm/dL Hct (34.0-46.0) % MCV (80.0-100.0) fL MCH (25.0-35.0) pg MCHC (31.0-37.0) g/dL RDW (11.5-15.5) % Plt Count (150-450) k/uL MPV Neutrophils % % Lymphocytes % % Monocytes % % Eosinophils % % Basophils % % Neutrophils # (1.3-7.7) k/uL Lymphocytes # (1.0-4.8) k/uL Monocytes # (0-1.0) k/uL Eosinophils # (0-0.7) k/uL Basophils # (0-0.2) k/uL PT (10.0-12.5) sec INR (<1.2) APTT (22.0-30.0) sec Sodium (137-145) mmol/L Potassium (3.5-5.1) mmol/L Chloride (98-107) mmol/L Carbon Dioxide (22-30) mmol/L Anion Gap mmol/L BUN (7-17) mg/dL Creatinine (0.52-1.04) mg/dL Est GFR (CKD-EPI)AfAm (>60 ml/min/1.73 sqM) Est GFR (CKD-EPI)NonAf (>60 ml/min/1.73 sqM) Glucose (74-99) mg/dL Plasma Lactic Acid Alfonso 1.4 (0.7-2.0) mmol/L Calcium (8.4-10.2) mg/dL Total Bilirubin (0.2-1.3) mg/dL AST (14-36) U/L ALT (4-34) U/L Alkaline Phosphatase (38-126) U/L Ammonia <9 (<30) umol/L Troponin I (0.000-0.034) ng/mL Total Protein (6.3-8.2) g/dL Albumin (3.5-5.0) g/dL Stool Occult Blood (Negative) Blood Type Blood Type Confirm O Positive Blood Type Recheck Bld Type Recheck Status Antibody Screen Spec Expiration Date - EKG Data EKG Comments: EKG shows a sinus rhythm at 80 bpm with occasional premature beats without acute ST or T-wave changes. MT 136, QRS 80, QT/QTC 389/425. Disposition Clinical Impression: Hematemesis Disposition: ADMITTED IP TO THIS HOSP Condition: Good Referrals: Yomi Montelongo DO [Primary Care Provider] - 1-2 days Time of Disposition: 20:23
--- NOTE | 2023-03-04 14:29 | CT ---
EXAMINATION TYPE: CT abdomen pelvis wo con DATE OF EXAM: 03/04/2023 COMPARISON: 11/01/2016 HISTORY: abd pain CT DLP: 352.6 mGycm Automated exposure control for dose reduction was used. TECHNIQUE: Helical acquisition of images was performed from the lung bases through the pelvis. FINDINGS: There are mild chronic interstitial changes in the lung bases. The stomach is distended with contrast and air. The distal esophagus is patulous and there is diffuse esophageal wall thickening visualized distal esophagus. There are multiple low-density lesions within the liver which were seen on the prior study and are co nsistent with simple cysts. There is no bowel obstruction. There is no free intraperitoneal air or fluid. There is no organomegaly involving the pancreas, spleen or adrenal glands. There is no renal calcification or hydronephrosis. The caliber the abdominal aorta is normal. There is no pelvic mass, free fluid, abscess or adenopathy. There is marked spondylolysis and spondylolisthesis at the L5-S1 level. IMPRESSION: 1. Diffuse esophageal wall thickening and patulous distal esophagus. 2 distended stomach with contrast and air. 3. No bowel obstruction. 4. No free intraperitoneal air or fluid. 5. Multiple small innumerable stable hepatic cysts.
[2023-03-04] MEDS ORDERED: METOCLOPRAMIDE 5 MG/ML 2 ML VIAL IVP STA (14:52)
[2023-03-04] MEDS ORDERED: HYDROmorphone 1 MG/ML 1 ML SYRINGE IVP STA (15:06)
[2023-03-04] MEDS ORDERED: PANTOPRAZOLE 40 MG/10 ML VIAL IVP STA (15:06)
[2023-03-04] MEDS ORDERED: diphenhydrAMINE 50 MG/ML 1 ML VIAL IVP PRN (15:09)
[2023-03-04] MEDS ORDERED: BENZOCAINE SPRAY 1 CAN MUCOUS MEM STA (19:14)
--- NOTE | 2023-03-04 20:17 | XR ---
EXAMINATION TYPE: XR chest 1V portable DATE OF EXAM: 03/04/2023 7:51 PM CLINICAL INDICATION:Female, 72 years old with history of ng placement; [facility] COMPARISON: Chest radiographs from 11/02/2021. TECHNIQUE: XR chest 1V portable Frontal view of the chest. FINDINGS: Lungs/Pleura: There is no evidence of pleural effusion, focal consolidation, or pneumothorax. Pulmonary vascularity: Unremarkable. Heart/mediastinum: Cardiomediastinal silhouette is enlarged and stable. Musculoskeletal: No acute osseous pathology. Other findings: None Lines/Tubes: Nasogastric tube with its distal tip and side-port projecting under the diaphragm. IMPRESSION: 1. Nasogastric tube in appropriate position. 2. Low lung volumes with a generalized hazy appearance which could represent atelectasis.
[2023-03-04] MEDS ORDERED: NALOXONE 0.4 MG/ML 1 ML VIAL IV PRN (20:24)
[2023-03-04] MEDS ORDERED: HYDROmorphone 1 MG/ML 1 ML SYRINGE IVP PRN (20:26)
[2023-03-04] MEDS ORDERED: HYDROmorphone 0.5 MG/0.5 ML SYRINGE IVP PRN (20:26)
[2023-03-04] MEDS: ACETAMINOPHEN TAB 500 MG TAB PO STA ×2 (20:27→20:31)
[2023-03-04 21:19] LABS: Appearance,Urine Clear (Clear); Bilirubin,Urine Negative (Negative); Blood,Urine Trace (Negative); Color,Urine Yellow; Glucose,Urine (UA) Negative (Negative); Hyaline Casts,Urine 3 /lpf (0-2); Ketones,Urine Trace (Negative); Leukocyte Esterase,Urine Moderate (Negative); Mucus,Urine Rare /hpf; Nitrite,Urine Negative (Negative); Protein,Urine Trace (Negative); RBC,Urine 4 /hpf (0-5); Specific Gravity,Urine 1.016 (1.001-1.035); Squamous Epithelial Cell,Urine <1 /hpf (0-4); Urobilinogen,Urine <2.0 mg/dL (<2.0); WBC,Urine 6 /hpf (0-5)
[2023-03-04] MEDS: SODIUM CHLORIDE 0.9% 1,000 ML IV SCH (21:30)
[2023-03-05] MEDS ORDERED: ACETAMINOPHEN IV (For NPO) 1,000 MG in EMPTY BAG 1 BAG IVPB PRN (03:17)
[2023-03-05] MEDS: SODIUM CHLORIDE 0.9% 1,000 ML IV SCH (07:55)
[2023-03-05] MEDS ORDERED: GABAPENTIN 300 MG CAP PO PRN (08:25)
[2023-03-05] MEDS ORDERED: ONDANSETRON ODT 4 MG TAB PO PRN (08:25)
[2023-03-05] MEDS ORDERED: ALPRAZolam 0.5 MG TAB PO PRN (08:25)
[2023-03-05] MEDS: PANTOPRAZOLE 40 MG/10 ML VIAL IVP SCH ×2 (08:51→21:42)
[2023-03-05] MEDS: amLODIPine 10 MG TAB PO SCH (08:52)
--- NOTE | 2023-03-05 13:15 | P.GSCN ---
History of Present Illness Consult date: 03/05/23 History of present illness: Patient is a 72-year-old female who presents with hematemesis. Patient states she has been having diffuse crampy abdominal pain for the past 1-2 weeks associated with diarrhea. Denies any melena or hematochezia. She states that the day prior to presentation she had a 1 time episode of hematemesis. She states that in the past she had undergone upper endoscopy with prior evidence of esophageal ulceration. She states that he she is compliant with her current antacid medication. Denies any lightheadedness or dizziness. No further hemat emesis since admission. No fevers or chills. No shortness of breath or chest pain. Upon presentation to the [facility] CT abdomen and pelvis was obtained which showed evidence of esophageal thickening. Review of Systems Negative except for as stated above Past Medical History Past Medical History: GERD/Reflux, Hypertension Additional Past Medical History / Comment(s): TYLENOL OVERDOSE YEARS AGO,"I DIDN'T PAY ATTENTION TO DOSAGE BECAUSE MY BACK PAIN WAS SO BAD". 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 INOPERABLE LOWER BACK FRACTURE, CHRONIC BACK PAIN (FALL FROM LADDER, ABOUT 20 YEARS). History of Any Multi-Drug Resistant Organisms: None Reported Past Surgical History: Back Surgery, Joint Replacement, Orthopedic Surgery Additional Past Surgical History / Comment(s): TOTAL LEFT ARTHROPLASTY X2. D&C X5, TOTAL HYSTERECTOMY, RIGHT 5TH FINGER CYST REMOVAL, BILATERAL EYELID LIFT SURGERY. ORIF RIGHT FOOT Past Anesthesia/Blood Transfusion Reactions: No Reported Reaction Past Psychological History: No Psychological Hx Reported Smoking Status: Never smoker Past Alcohol Use History: None Reported Additional Past Alcohol Use History / Comment(s): PT. STATES SHE DRINKS A GLASS OF WINE DAILY Past Drug Use History: None Reported - Past Family History Mother Family Medical History: Diabetes Mellitus, Myocardial Infarction ([place]) Additional Family Medical History / Comment(s): pts. mother at age 71 from an [place] Son(s) Family Medical History: Diabetes Mellitus Father Family Medical History: Liver Disease Additional Family Medical History / Comment(s): PTS. FATHER AT AGE 47 SECONDARY TO ETOH Medications and Allergies Home Medications Medication Instructions Recorded Confirmed Type EPINEPHrine [Epipen 2-Maxime] 0.3 mg IM ONCE PRN #1 pack 06/12/18 03/04/23 Rx Acetaminophen Tab [Tylenol Tab] 500 mg PO Q6H PRN #24 tablet 11/02/21 03/04/23 Rx ALPRAZolam [Xanax] 0.5 mg PO HS PRN 02/08/22 03/04/23 History Famotidine [Pepcid] 20 mg PO HS 02/08/22 03/04/23 History Gabapentin 300 mg PO BID PRN 02/08/22 03/04/23 History Losartan/Hydrochlorothiazide 1 tab PO DAILY 02/08/22 03/04/23 History [Losartan-Hctz 100-12.5 mg Tab] Cephalexin [Keflex] 500 mg PO Q12HR 03/04/23 03/04/23 History Famotidine [Pepcid] 20 mg PO HS 03/04/23 03/04/23 History Furosemide [Lasix] 20 mg PO DAILY 03/04/23 03/04/23 History Omeprazole 40 mg PO HS 03/04/23 03/04/23 History Ondansetron Odt [Zofran Odt] 4 mg PO Q6H PRN 03/04/23 03/04/23 History amLODIPine [Norvasc] 10 mg PO DAILY 03/04/23 03/04/23 History Allergies Allergy/AdvReac Type Severity Reaction Status Date / Time morphine Allergy Itching Verified 03/04/23 13:47 venom-honey bee Allergy Anaphylaxis Verified 03/04/23 13:47 [bee venom (honey bee)] Surgical - Exam Vital Signs Temp Pulse Resp BP Pulse Ox 98.6 F 96 18 158/99 98 03/04/23 11:16 03/04/23 11:16 03/04/23 11:16 03/04/23 11:16 03/04/23 11:16 Gen: AxO, NAD Pulm: non-labored respirations NGT: Intact producing blood tinged output Abd: soft, non-tender, minimally distended, no guarding/rebound/rigidity Extrem: no edema seen Results - Labs 03/04/23 12:05 03/04/23 12:05 Abnormal Lab Results - Last 24 Hours (Table) 03/04/23 Range/Units 20:55 Urine Protein Trace H (Negative) Urine Ketones Trace H (Negative) Urine Blood Trace H (Negative) Ur Leukocyte Esterase Moderate H (Negative) Urine WBC 6 H (0-5) /hpf Hyaline Casts 3 H (0-2) /lpf Urine Mucus Rare H (None) /hpf Assessment and Plan Assessment: Patient is a 72-year-old female who presents with hematemesis and CT evidence of esophageal thickening Plan: -NPO -NGT to LIS -BID PPI -Trend Hb -PRN pain and nausea control -No current plan for endoscopy; will continue to monitor NGT output and Hb levels. If persistent bleeding develops will reconsider endoscopic evaluation and intervention. Antony Platt MD General Surgery
--- NOTE | 2023-03-05 14:48 | CT ---
EXAMINATION TYPE: CT brain wo con CT DLP: 1087.2 mGycm, Automated exposure control for dose reduction was used. DATE OF EXAM: 03/05/2023 2:29 PM COMPARISON: None. CLINICAL INDICATION:Female, 72 years old with history of increased confusion, increased confusion TECHNIQUE: Brain: Axial CT images of the brain were obtained with coronal and sagittal reformats created and rev iewed. Contrast used: None. Oral contrast used: None. FINDINGS: Brain: Extra-axial spaces: No abnormal extra-axial fluid collections. Ventricular system: Dilatation in proportion to cerebral atrophy. Cerebral parenchyma: No acute intraparenchymal hemorrhage or mass effect. The page-white junction is well differentiated. Scattered hypoattenuating areas are seen within the white matter. Cerebellum: Unremarkable. Mass effect: No evidence of midline shift. Intracranial vasculature: Atherosclerotic calcifications of the intracranial vessels. Soft tissues: Normal. Calvarium/osseous structures: No depressed skull fracture. Paranasal sinuses and mastoid air cells: Mild scattered paranasal sinus disease. Visualized orbits: Orbital contents are intact. IMPRESSION: 1. No acute intracranial process. 2. Nonspecific white matter changes, likely secondary to chronic small vessel ischemic disease.
--- NOTE | 2023-03-05 15:43 | P.HPIM ---
History of Present Illness This is a pleasant 72 years old female with past medical history of GERD/Reflux, Hypertension Patient last year had EGD on 02/09/2022 showing Dear erosions and ulceration distal esophagus with LA grade a reflux esophagitis and moderate hiatal hernia. Patient presents because she's been having left arm pain for about 2 weeks in the back of her arm about 8-9/10 in severity, nonradiating, nonspecific in character with no relieving or precipitating factors. Patient also has been taking a lot of Tylenol and Excedrin for her arm pain and migraine but she could not specify how many Patient started having vomiting with coffee ground vomitus with some epigastric pain and tenderness which is described mild per patient for the last 2 days Other than that she has no diarrhea, no urinary complaints, no chest pain or dyspnea, no dizziness weakness or numbness. She denies smoking alcohol or illicit drugs. She was recently in urgent care for suspected urinary tract infection and she was placed on Keflex for this reason, she's been complaining of from dysuria at that time but currently she denies dysuria or urgency. CT of the brain ordered and was negative for acute process Review of Systems Review of systems CONSTITUTIONAL: No fever, no malaise, no fatigue. HEENT: No recent visual problems or hearing problems. Denied any sore throat. CARDIOVASCULAR: No orthopnea, PND, no palpitations, no syncope. PULMONARY: No shortness of breath, no cough, no hemoptysis. GASTROINTESTINAL: No diarrhea, no nausea, no vomiting, no abdominal pain. Normoactive bowel sounds. NEUROLOGICAL: No headaches, no weakness, no numbness. HEMATOLOGICAL: Denies any bleeding or petechiae. GENITOURINARY: Denies any burning micturition, frequency, or urgency. MUSCULOSKELETAL/RHEUMATOLOGICAL: Denies any joint pain, swelling, or any muscle pain. ENDOCRINE: Denies any polyuria or polydipsia. Past Medical History Past Medical History: GERD/Reflux, Hypertension Additional Past Medical History / Comment(s): TYLENOL OVERDOSE YEARS AGO,"I DIDN'T PAY ATTENTION TO DOSAGE BECAUSE MY BACK PAIN WAS SO BAD". 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 INOPERABLE LOWER BACK FRACTURE, CHRONIC BACK PAIN (FALL FROM LADDER, ABOUT 20 YEARS). History of Any Multi-Drug Resistant Organisms: None Reported Past Surgical History: Back Surgery, Joint Replacement, Orthopedic Surgery Additional Past Surgical History / Comment(s): TOTAL LEFT ARTHROPLASTY X2. D&C X5, TOTAL HYSTERECTOMY, RIGHT 5TH FINGER CYST REMOVAL, BILATERAL EYELID LIFT SURGERY. ORIF RIGHT FOOT Past Anesthesia/Blood Transfusion Reactions: No Reported Reaction Past Psychological History: No Psychological Hx Reported Smoking Status: Never smoker Past Alcohol Use History: None Reported Additional Past Alcohol Use History / Comment(s): PT. STATES SHE DRINKS A GLASS OF WINE DAILY Past Drug Use History: None Reported - Past Family History Mother Family Medical History: Diabetes Mellitus, Myocardial Infarction ([place]) Additional Family Medical History / Comment(s): pts. mother at age 71 from an [place] Son(s) Family Medical History: Diabetes Mellitus Father Family Medical History: Liver Disease Additional Family Medical History / Comment(s): PTS. FATHER AT AGE 47 SECONDARY TO ETOH Medications and Allergies Home Medications Medication Instructions Recorded Confirmed Type EPINEPHrine [Epipen 2-Maxime] 0.3 mg IM ONCE PRN #1 pack 06/12/18 03/04/23 Rx Acetaminophen Tab [Tylenol Tab] 500 mg PO Q6H PRN #24 tablet 11/02/21 03/04/23 Rx ALPRAZolam [Xanax] 0.5 mg PO HS PRN 02/08/22 03/04/23 History Famotidine [Pepcid] 20 mg PO HS 02/08/22 03/04/23 History Gabapentin 300 mg PO BID PRN 02/08/22 03/04/23 History Losartan/Hydrochlorothiazide 1 tab PO DAILY 02/08/22 03/04/23 History [Losartan-Hctz 100-12.5 mg Tab] Cephalexin [Keflex] 500 mg PO Q12HR 03/04/23 03/04/23 History Famotidine [Pepcid] 20 mg PO HS 03/04/23 03/04/23 History Furosemide [Lasix] 20 mg PO DAILY 03/04/23 03/04/23 History Omeprazole 40 mg PO HS 03/04/23 03/04/23 History Ondansetron Odt [Zofran Odt] 4 mg PO Q6H PRN 03/04/23 03/04/23 History amLODIPine [Norvasc] 10 mg PO DAILY 03/04/23 03/04/23 History Allergies Allergy/AdvReac Type Severity Reaction Status Date / Time morphine Allergy Itching Verified 03/04/23 13:47 venom-honey bee Allergy Anaphylaxis Verified 03/04/23 13:47 [bee venom (honey bee)] Physical Exam Vitals: Vital Signs Temp Pulse Pulse Resp BP BP Pulse Ox 03/05/23 05:31 97.9 F 03/05/23 02:00 100.4 F H 83 16 124/63 99 03/04/23 22:00 80 16 140/70 98 03/04/23 21:00 99.8 F H 81 18 143/72 97 03/04/23 19:03 100.1 F H 75 16 143/76 99 03/04/23 16:02 76 16 126/65 96 03/04/23 15:26 95 03/04/23 15:25 89 L 03/04/23 15:00 98.9 F 72 17 143/72 93 L 03/04/23 14:12 81 20 140/67 97 03/04/23 13:14 78 18 139/72 97 03/04/23 12:15 75 16 159/77 97 03/04/23 11:16 98.6 F 96 18 158/99 98 Intake and Output 03/04/23 03/05/23 03/05/23 22:59 06:59 14:59 Other: # Voids 1 Weight 54.431 kg GENERAL: The patient is alert and oriented x3, not in any acute distress. Well developed, well nourished. HEENT: Pupils are round and equally reacting to light. EOMI. No scleral icterus. No conjunctival pallor. Normocephalic, atraumatic. No pharyngeal erythema. No thyromegaly. CARDIOVASCULAR: S1 and S2 present. No murmurs, rubs, or gallops. PULMONARY: Chest is clear to auscultation, no wheezing , no crackles. ABDOMEN: Soft, nontender, nondistended, normoactive bowel sounds. No palpable organomegaly. MUSCULOSKELETAL: No joint swelling or deformity. EXTREMITIES: No cyanosis, clubbing, or pedal edema. NEUROLOGICAL: Gross neurological examination did not reveal any focal deficits. SKIN: No rashes. no petechiae. Results CBC & Chem 7: 03/04/23 12:05 03/04/23 12:05 Labs: Abnormal Lab Results - Last 24 Hours (Table) 03/04/23 03/04/23 03/04/23 Range/Units 12:05 12:05 20:55 WBC 11.9 H (3.8-10.6) k/uL Neutrophils # 9.6 H (1.3-7.7) k/uL Chloride 95 L (98-107) mmol/L BUN 26 H (7-17) mg/dL Creatinine 1.51 H (0.52-1.04) mg/dL Glucose 129 H (74-99) mg/dL Calcium 10.7 H (8.4-10.2) mg/dL Total Protein 8.9 H (6.3-8.2) g/dL Albumin 5.1 H (3.5-5.0) g/dL Urine Protein Trace H (Negative) Urine Ketones Trace H (Negative) Urine Blood Trace H (Negative) Ur Leukocyte Esterase Moderate H (Negative) Urine WBC 6 H (0-5) /hpf Hyaline Casts 3 H (0-2) /lpf Urine Mucus Rare H (None) /hpf Thrombosis Risk Factor Assmnt - Choose All That Apply Any of the Below Risk Factors Present?: Yes Each Factor Represents 1 point: Varicose veins Each Risk Factor Represents 2 Points: Age 61-74 years Other congenital or acquired thrombophilia - If yes, enter type in comment: No Thrombosis Risk Factor Assessment Total Risk Factor Score: 3 Thrombosis Risk Factor Assessment Level: Moderate Risk Assessment and Plan Assessment: Left arm pain Coffee ground vomitus, rule out GI bleed Fever with leukocytosis with possible mild sepsis suspected secondary to acute urinary tract infection versus other Mild confusion could be metabolic/toxic encephalopathy Reflux esophagitis Moderate hiatal hernia Chronic kidney disease stage III Hypertension Mild protein calorie malnutrition Plan: Continue with normal saline 75 mL/h IV Protonix twice daily General surgery consult Continue with ceftriaxone and infectious disease consult We'll check left arm x-ray and ultrasound Dietary consult Labs and medication were reviewed.. Continue same treatment. Continue with symptomatic treatment. Resume home medication. Monitor labs and vitals. DVT and GI prophylaxis. Further recommendations as per clinical course of the patient DVT prophylaxis: no Subcutaneous heparin, SCD GI Prophylaxis: PPI PT/OT: Pending Prognosis is guarded
--- NOTE | 2023-03-05 16:29 | US ---
EXAMINATION TYPE: US venous doppler duplex UE LT DATE OF EXAM: 03/05/2023 COMPARISON: NONE CLINICAL INDICATION: Female, 72 years old with history of pain; Pt states there was pain when Dr pres sed on her arm. No hx of DVT. Not on blood thinners. No swelling or redness. SIDE PERFORMED: Left Left Arm: No evidence for DVT in vessels seen. Cephalic v not seen. IMPRESSION: Grayscale, color doppler, spectral doppler imaging performed of the deep veins of the upper extremiti es. There is normal flow, compressibility and vascular waveforms.
--- NOTE | 2023-03-05 17:06 | XR ---
EXAMINATION TYPE: XR humerus LT DATE OF EXAM: 03/05/2023 4:14 PM CLINICAL INDICATION:Female, 72 years old with history of pain; COMPARISON: None TECHNIQUE: XR humerus LT examined in frontal and lateral projections. FINDINGS: No evidence of acute osseous pathology, joint dislocation, or soft tissue swelling. The rem aining portions of the visualized chest are unremarkable. IMPRESSION: No acute osseous pathology.
[2023-03-05] MEDS: FAMOTIDINE 20 MG TAB PO SCH (21:28)
--- NOTE | 2023-03-05 22:53 | P.CONS ---
History of Present Illness - Reason for Consult Consult date: 03/05/23 Fever, recent UTI Requesting physician: Suleiman E Sheet - Chief Complaint Vomiting and hematemesis x 1 day - History of Present Illness Patient is a 72-year-old female with a past medical history significant for reflux hypertension recently completed a course of antibiotic for UTI however the patient did not have resolution of symptoms for the patient was evaluated at urgent care and the patient was started on oral Keflex patient only took 2 pills and subsequent noticed to having intractable nausea and vomiting also have some hematemesis and melena for the patient present to the hospital patient did have some chills and low-grade fever denies any headache or URI symptoms no chest pain shortness of breath or cough no further nausea or vomiting no abdominal pain no diarrhea did have some burning of urine but no hematuria suprapubic or flank pain patient not presentation to the hospital afebrile however later on she did spike a fever of 100.1 and 100.4 around 2 AM, patient was not tachycardic hypotensive or hypoxic did have white count of 11.9 with a left shift BUN/creatinine has been mildly elevated liver enzymes are normal urine has been positive patient did have a abdominal pelvis CT diffuse esophageal wall thickening distended stomach with contrast any no mention of any hydronephrosis or kidney stones infectious disease was consulted regarding fever UTI and antibiotic therapy Review of Systems Positive point and negatives has been mentioned in the HPI, complete review of systems was performed and all other systems are negative Past Medical History Past Medical History: GERD/Reflux, Hypertension Additional Past Medical History / Comment(s): TYLENOL OVERDOSE YEARS AGO,"I DIDN'T PAY ATTENTION TO DOSAGE BECAUSE MY BACK PAIN WAS SO BAD". 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 INOPERABLE LOWER BACK FRACTURE, CHRONIC BACK PAIN (FALL FROM LADDER, ABOUT 20 YEARS). History of Any Multi-Drug Resistant Organisms: None Reported Past Surgical History: Back Surgery, Joint Replacement, Orthopedic Surgery Additional Past Surgical History / Comment(s): TOTAL LEFT ARTHROPLASTY X2. D&C X5, TOTAL HYSTERECTOMY, RIGHT 5TH FINGER CYST REMOVAL, BILATERAL EYELID LIFT SURGERY. ORIF RIGHT FOOT Past Anesthesia/Blood Transfusion Reactions: No Reported Reaction Past Psychological History: No Psychological Hx Reported Smoking Status: Never smoker Past Alcohol Use History: None Reported Additional Past Alcohol Use History / Comment(s): PT. STATES SHE DRINKS A GLASS OF WINE DAILY Past Drug Use History: None Reported - Past Family History Mother Family Medical History: Diabetes Mellitus, Myocardial Infarction ([place]) Additional Family Medical History / Comment(s): pts. mother at age 71 from an [place] Son(s) Family Medical History: Diabetes Mellitus Father Family Medical History: Liver Disease Additional Family Medical History / Comment(s): PTS. FATHER AT AGE 47 SECONDARY TO ETOH Medications and Allergies Home Medications Medication Instructions Recorded Confirmed Type EPINEPHrine [Epipen 2-Maxime] 0.3 mg IM ONCE PRN #1 pack 06/12/18 03/04/23 Rx Acetaminophen Tab [Tylenol] 500 mg PO Q6H PRN #24 tablet 11/02/21 03/04/23 Rx Famotidine [Pepcid] 20 mg PO HS 02/08/22 03/04/23 History Gabapentin 300 mg PO BID PRN 02/08/22 03/04/23 History Losartan/Hydrochlorothiazide 1 tab PO DAILY 02/08/22 03/04/23 History [Losartan-Hctz 100-12.5 mg Tab] Famotidine [Pepcid] 20 mg PO HS 03/04/23 03/04/23 History Furosemide [Lasix] 20 mg PO DAILY 03/04/23 03/04/23 History Omeprazole 40 mg PO HS 03/04/23 03/04/23 History Ondansetron Odt [Zofran ODT] 4 mg PO Q6H PRN 03/04/23 03/04/23 History amLODIPine [Norvasc] 10 mg PO DAILY 03/04/23 03/04/23 History Sucralfate [Carafate] 1 gm PO ACHS #120 tab 03/06/23 Rx cefUROXime axetiL [Ceftin] 500 mg PO BID 7 Days #14 tab 03/07/23 Rx Allergies Allergy/AdvReac Type Severity Reaction Status Date / Time morphine Allergy Itching Verified 03/04/23 13:47 venom-honey bee Allergy Anaphylaxis Verified 03/04/23 13:47 [bee venom (honey bee)] Physical Exam Vitals: Vital Signs Temp Pulse Pulse Resp BP BP Pulse Ox 03/05/23 07:08 98.0 F 65 19 129/54 100 03/05/23 05:31 97.9 F 03/05/23 02:00 100.4 F H 83 16 124/63 99 03/04/23 22:00 80 16 140/70 98 03/04/23 21:00 99.8 F H 81 18 143/72 97 03/04/23 19:03 100.1 F H 75 16 143/76 99 03/04/23 16:02 76 16 126/65 96 03/04/23 15:26 95 03/04/23 15:25 89 L 03/04/23 15:00 98.9 F 72 17 143/72 93 L 03/04/23 14:12 81 20 140/67 97 03/04/23 13:14 78 18 139/72 97 03/04/23 12:15 75 16 159/77 97 Intake and Output 03/04/23 03/05/23 03/05/23 22:59 06:59 14:59 Other: # Voids 1 Weight 54.431 kg GENERAL DESCRIPTION: Elderly female lying in bed, no distress. No tachypnea or accessory muscle of respiration use. HEENT: Shows Pallor , no scleral icterus. Oral mucous membrane is dry. No pharyngeal erythema or thrush NECK: Trachea central, no thyromegaly. LUNGS: Unlabored breathing. Decreased intensity of breath sounds HEART: S1, S2, regular rate and rhythm. No loud murmur ABDOMEN: Soft, no tenderness EXTREMITIES: No edema of feet. SKIN: No rash, no masses palpable. NEUROLOGICAL: The patient is awake oriented x 3 mood and affect is normal Results CBC & Chem 7: 03/06/23 04:11 03/06/23 04:11 Labs: Abnormal Lab Results - Last 24 Hours (Table) 03/04/23 03/04/23 03/04/23 Range/Units 12:05 12:05 20:55 WBC 11.9 H (3.8-10.6) k/uL Neutrophils # 9.6 H (1.3-7.7) k/uL Chloride 95 L (98-107) mmol/L BUN 26 H (7-17) mg/dL Creatinine 1.51 H (0.52-1.04) mg/dL Glucose 129 H (74-99) mg/dL Calcium 10.7 H (8.4-10.2) mg/dL Total Protein 8.9 H (6.3-8.2) g/dL Albumin 5.1 H (3.5-5.0) g/dL Urine Protein Trace H (Negative) Urine Ketones Trace H (Negative) Urine Blood Trace H (Negative) Ur Leukocyte Esterase Moderate H (Negative) Urine WBC 6 H (0-5) /hpf Hyaline Casts 3 H (0-2) /lpf Urine Mucus Rare H (None) /hpf Assessment and Plan (1) Failure of outpatient treatment Status: Acute Code(s): Z78.9 - OTHER SPECIFIED HEALTH STATUS SNOMED Code(s): 314038791 (2) Leukocytosis Status: Acute Code(s): D72.829 - ELEVATED WHITE BLOOD CELL COUNT, UNSPECIFIED SNOMED Code(s): 652964920 (3) UTI (urinary tract infection) Status: Acute Code(s): N39.0 - URINARY TRACT INFECTION, SITE NOT SPECIFIED SNOMED Code(s): 45977028 Plan: 1patient with sepsis in this patient who did have a fever elevated white count source is likely UTI failing outpatient oral Keflex therapy and likely from enteric gram-negative pathogen CT abdominal pelvis did not mention any evidence of kidney stone or hydronephrosis 2-we will obtain blood culture and wait for the urine culture to be finalized 3-the patient will be started on Rocephin 2 g daily while waiting for the culture to finalize Multiple family members at the bedside question concern answered We will follow on clinical condition and cultures to further adjust medication if needed Thank you for this consultation we will follow the patient along with you Dictation was produced using [employer] dictation software. please excuse any grammatical, word or spelling errors. Time with Patient: Greater than 30
[2023-03-06] MEDS: SODIUM CHLORIDE 0.9% 1,000 ML IV SCH ×2 (07:24→08:00)
[2023-03-06] MEDS: PANTOPRAZOLE 40 MG/10 ML VIAL IVP SCH ×2 (08:02→20:10)
[2023-03-06] MEDS: amLODIPine 10 MG TAB PO SCH (08:07)
[2023-03-06 09:07] LABS: Blood Urea Nitrogen 13.9 mg/dL (9.0-27.0); Carbon Dioxide 22.9 mmol/L (21.6-31.8); Chloride 105 mmol/L (96-109); Glucose 85 mg/dL (70-110); Potassium 3.8 mmol/L (3.5-5.5); Sodium 145 mmol/L (135-145)
[2023-03-06 09:08] LABS: Calcium 9.8 mg/dL (8.7-10.3)
[2023-03-06 09:09] LABS: Basophils # (A) 0.13 X 10*3/uL (0.00-0.10); Basophils % (A) 1.3 %; Eosinophils # (A) 0.17 X 10*3/uL (0.04-0.35); Eosinophils % (A) 1.7 %; HGB 10.6 g/dL (12.0-15.0); Lymphocytes % (A) 13.2 %; MCH 30.5 pg (27.0-32.0); MCHC 32.1 g/dL (32.0-37.0); MCV 94.8 FL (80.0-97.0); Mean Platelet Volume 10.6 FL (9.5-12.2); Monocytes # (A) 1.16 X 10*3/uL (0.20-1.00); Monocytes % (A) 11.8 %; NRBC Per 100 WBC 0 X 10*3/uL (0.00-0.01); Neutrophils # (A) 7.04 X 10*3/uL (1.80-7.70); Neutrophils % (A) 71.7 %; Platelet Count 307 X 10*3/uL (140-440); RBC 3.48 X 10*6/uL (4.10-5.20); RDW 14.2 % (11.5-14.5); WBC 9.83 X 10*3/uL (4.50-10.00)
[2023-03-06] MEDS ORDERED: PROPOFOL 10 MG/ML 20 ML VIAL IV ONE (09:26)
[2023-03-06] MEDS ORDERED: IV FLUID CONTINUATION 800 ML IV ONE (09:35)
--- NOTE | 2023-03-06 09:48 | P.PCN ---
Date of Procedure: 03/06/23 Procedure(s) Performed: Preoperative Dx: Upper GI bleed Postoperative Dx: Mild gastritis, hiatal hernia, mild distal esophagitis Procedure: EGD with Bx Anesthesia: Sedation Endoscopist: Dr. Castro Specimens: Antrum, distal esophagus Endoscopic Procedure: The patient was on the endoscopy table in the left d ecubitus position. The Olympus gastroscope was inserted into the oropharynx and passed under direct visualization to the region of the third portion of the duodenum. From that point the scope was slowly withdrawn inspecting all surfaces carefully. There were no neoplastic inflammatory or polypoid lesions throughout the duodenum. The pylorus was widely patent. The stomach was carefully inspected. There was diffuse mild gastritis present. Some of this gastritis may have been related to the indwelling nasogastric tube. No ulcerations were seen. Retroflexion revealed a moderate sized hiatal hernia. The GE junction was present for centimeters above the diaphragm. Again there was linear inflammatory changes within the hiatal hernia that may have been from the nasogastric tube. A biopsy of the antrum took place. In the esophagus there was a few small linear erosions that were less than 1 cm length. These were non-circumferential. Biopsies were taken. The remainder the esophagus appear normal. The patient was then taken to the recovery room in stable condition per anesthesia guidelines. Recommendations: Patient with no evidence of actively bleeding ulcer. No neoplastic changes. Etiology for hematemesis likely related to esophagitis and vomiting. Continue antiacids. Add Carafate. Resume diet. May discharge. Follow-up with Dr. Lawton as outpatient to discuss possible repair hiatal hernia.
[2023-03-06 14:23] VITALS: BMI 20.5
--- NOTE | 2023-03-06 15:27 | P.PN ---
Subjective Progress Note Date: 03/06/23 Principal diagnosis: Reason for follow-up is pyelonephritis. Patient is a 72-year-old female past medical history of hypertension reflux recurrent UTI presenting to the hospital with hematemesis and vomiting did have a low-grade fever positive UA concerning for UTI/pyelonephritis failing outpatient treatment. Patient is status post EGD completed 03/06/2023 with evidence of mild gastritis hiatal hernia and mild distal esophagitis On today's evaluation that is 03/06/2023, patient did have a low-grade fever of 99.7 at midnight however the patient is afebrile since then patient is breathing comfortably on room air patient denies having any chest pain shortness of breath or cough no further nausea vomiting abdominal pain or diarrhea. The patient white count is up to 9.83 creatinine 1.0 urine cultures currently pending Objective - Vital Signs Vital signs: Vital Signs Temp 98.5 F 03/06/23 07:47 Pulse 86 03/06/23 07:47 Resp 20 03/06/23 07:47 BP 157/75 03/06/23 07:47 Pulse Ox 95 03/06/23 07:47 FiO2 Intake & Output 03/05/23 03/06/23 03/06/23 18:59 06:59 18:59 Intake Total 100 Output Total 375 Balance -375 100 Intake: IV 100 Output: Gastric Drainage 375 Other: Voiding Method Toilet # Voids 3 1 - Exam GENERAL DESCRIPTION: An elderly female lying in bed in no distress RESPIRATORY SYSTEM: Unlabored breathing , decreased breath sounds at bases HEART: S1 S2 regular rate and rhythm , ABDOMEN: Soft , no tenderness EXTREMITIES: No edema feet - Labs CBC & Chem 7: 03/06/23 04:11 03/06/23 04:11 Labs: Abnormal Lab Results - Last 24 Hours (Table) 03/06/23 03/06/23 Range/Units 04:11 04:11 RBC 3.48 L (4.10-5.20) X 10*6/uL Hgb 10.6 L (12.0-15.0) g/dL Hct 33.0 L (37.2-46.3) % Monocytes # 1.16 H (0.20-1.00) X 10*3/uL Basophils # 0.13 H (0.00-0.10) X 10*3/uL Anion Gap 17.10 H (4.00-12.00) mmol/L Microbiology - Last 24 Hours (Table) 03/03/23 20:55 Urine Culture - Final Urine,Catheterized Assessment and Plan (1) UTI (urinary tract infection) Current Visit: Yes Status: Acute Code(s): N39.0 - URINARY TRACT INFECTION, SITE NOT SPECIFIED SNOMED Code(s): 73285090 (2) Leukocytosis Current Visit: Yes Status: Acute Code(s): D72.829 - ELEVATED WHITE BLOOD CELL COUNT, UNSPECIFIED SNOMED Code(s): 089572375 Plan: 1patient with sepsis in this patient who did have a fever elevated white count source is likely UTI failing outpatient oral Keflex therapy and likely from enteric gram-negative pathogen CT abdominal pelvis did not mention any evidence of kidney stone or hydronephrosis 2the patient white count has normalized cultures are currently pending. 3patient seem to have shown some clinical improvement with Rocephin to continue while waiting for the culture to finalize Family at the bedside multiple questions concern answered Dictation was produced using [employer] dictation software. please excuse any grammatical, word or spelling errors.
[2023-03-06] MEDS: FAMOTIDINE 20 MG TAB PO SCH (20:11)
--- NOTE | 2023-03-06 21:14 | P.PN ---
Subjective This is a pleasant 72 years old female with past medical history of GERD/Reflux, Hypertension Patient last year had EGD on 02/09/2022 showing Dear erosions and ulceration distal esophagus with LA grade a reflux esophagitis and moderate hiatal hernia. Patient presents because she's been having left arm pain for about 2 weeks in the back of her arm about 8-9/10 in severity, nonradiating, nonspecific in character with no relieving or precipitating factors. Patient also has been taking a lot of Tylenol and Excedrin for her arm pain and migraine but she could not specify how many Patient started having vomiting with coffee ground vomitus with some epigastric pain and tenderness which is described mild per patient for the last 2 days Other than that she has no diarrhea, no urinary complaints, no chest pain or dyspnea, no dizziness weakness or numbness. She denies smoking alcohol or illicit drugs. She was recently in urgent care for suspected urinary tract infection and she was placed on Keflex for this reason, she's been complaining of from dysuria at that time but currently she denies dysuria or urgency. CT of the brain ordered and was negative for acute process 03/06/2023 No more vomiting of blood, EGD showing Dear erosions and ulceration of the distal esophagus secondary to reflux esophagitis, she was placed on Protonix twice daily. Diet is advanced Operative with can be stopped with creatinine back to normal at 1.5. Patient remains on ceftriaxone, she still have low-grade fever but improving, today 99.7, urine culture is negative. Left arm pain improved and workup included x-ray and ultrasound were negative as well. Resume home dose of low Zartan and monitor blood pressure it was 144/70 this today. Objective - Vital Signs Vital signs: Vital Signs Temp 98.1 F 03/06/23 13:06 Pulse 90 03/06/23 13:06 Resp 20 03/06/23 13:06 BP 144/70 03/06/23 13:06 Pulse Ox 94 L 03/06/23 13:06 FiO2 Intake & Output 03/05/23 03/06/23 03/06/23 18:59 06:59 18:59 Intake Total 100 Output Total 375 Balance -375 100 Weight 54.431 kg Intake: IV 100 Output: Gastric Drainage 375 Other: Voiding Method Toilet # Voids 3 1 3 - Exam GENERAL: The patient is alert and oriented x3, not in any acute distress. Well developed, well nourished. HEENT: Pupils are round and equally reacting to light. EOMI. No scleral icterus. No conjunctival pallor. Normocephalic, atraumatic. No pharyngeal erythema. No thyromegaly. CARDIOVASCULAR: S1 and S2 present. No murmurs, rubs, or gallops. PULMONARY: Chest is clear to auscultation, no wheezing , no crackles. ABDOMEN: Soft, nontender, nondistended, normoactive bowel sounds. No palpable organomegaly. MUSCULOSKELETAL: No joint swelling or deformity. EXTREMITIES: No cyanosis, clubbing, or pedal edema. NEUROLOGICAL: Gross neurological examination did not reveal any focal deficits. SKIN: No rashes. no petechiae. - Labs CBC & Chem 7: 03/06/23 04:11 03/06/23 04:11 Labs: Abnormal Lab Results - Last 24 Hours (Table) 03/06/23 03/06/23 Range/Units 04:11 04:11 RBC 3.48 L (4.10-5.20) X 10*6/uL Hgb 10.6 L (12.0-15.0) g/dL Hct 33.0 L (37.2-46.3) % Monocytes # 1.16 H (0.20-1.00) X 10*3/uL Basophils # 0.13 H (0.00-0.10) X 10*3/uL Anion Gap 17.10 H (4.00-12.00) mmol/L Microbiology - Last 24 Hours (Table) 03/03/23 20:55 Urine Culture - Final Urine,Catheterized Assessment and Plan Assessment: Left arm pain Coffee ground vomitus, rule out GI bleed Fever with leukocytosis with possible mild sepsis suspected secondary to acute urinary tract infection versus other Mild confusion could be metabolic/toxic encephalopathy Reflux esophagitis Moderate hiatal hernia Chronic kidney disease stage III Hypertension Mild protein calorie malnutrition Plan: disContinue normal saline 75 mL/h IV Protonix twice daily General surgery consult Continue with ceftriaxone and infectious disease consult Dietary consult Labs and medication were reviewed.. Continue same treatment. Continue with symptomatic treatment. Resume home medication. Monitor labs and vitals. DVT and GI prophylaxis. Further recommendations as per clinical course of the patient DVT prophylaxis: no Subcutaneous heparin, SCD GI Prophylaxis: PPI PT/OT: Pending Prognosis is guarded
[2023-03-07 07:57] VITALS: RESP 19
[2023-03-07] MEDS: PANTOPRAZOLE 40 MG/10 ML VIAL IVP SCH (08:55)
[2023-03-07] MEDS: amLODIPine 10 MG TAB PO SCH (08:56)
[2023-03-07] MEDS ORDERED: LOSARTAN 50 MG TAB PO SCH (09:00)
--- NOTE | 2023-03-07 12:53 | P.PN ---
Subjective Progress Note Date: 03/07/23 Principal diagnosis: Upper GI bleed Patient doing well today. She is tolerating her diet. She would like to go home. Yesterday's EGD showed gastritis hiatal hernia and distal esophagitis. Objective - Vital Signs Vital signs: Vital Signs Temp 987 F H 03/07/23 06:59 Pulse 79 03/07/23 06:59 Resp 19 03/07/23 06:59 BP 132/76 03/07/23 06:59 Pulse Ox 96 03/07/23 06:59 FiO2 Intake & Output 03/06/23 03/07/23 03/07/23 18:59 06:59 18:59 Intake Total 100 Balance 100 Weight 54.431 kg Intake: IV 100 Other: Voiding Method Toilet # Voids 3 1 - Exam Abdomen: Soft, nontender, nondistended - Labs CBC & Chem 7: 03/06/23 04:11 03/06/23 04:11 Labs: Microbiology - Last 24 Hours (Table) 03/03/23 20:55 Urine Culture - Final Urine,Catheterized Assessment and Plan (1) Hematemesis Narrative/Plan: Patient doing well today. Continue diet as tolerated. Continue antiacids. Current Visit: Yes Status: Acute Code(s): K92.0 - HEMATEMESIS SNOMED Code(s): 1957489
[2023-03-07 14:13] VITALS: BP 124/75; PULSE 92; TEMP 98.8
--- NOTE | 2023-03-07 15:43 | P.PN ---
Subjective Progress Note Date: 03/07/23 Principal diagnosis: Reason for follow-up is pyelonephritis. Patient is a 72-year-old female past medical history of hypertension reflux recurrent UTI presenting to the hospital with hematemesis and vomiting did have a low-grade fever positive UA concerning for UTI/pyelonephritis failing outpatient treatment. Patient is status post EGD completed 03/06/2023 with evidence of mild gastritis hiatal hernia and mild distal esophagitis On today's evaluation that is 03/07/2023, the patient remains to be afebrile, the patient is breathing comfortably on room air without need for supplemental oxygen patient denies having any chest pain shortness of breath or cough, the patient denies any further nausea vomiting tolerating her diet no abdominal pain and no diarrhea The patient did have white count of 9.83 and a creatinine of 1.0 as of yesterday no lab draw today, urine culture reported negative Objective - Vital Signs Vital signs: Vital Signs Temp 98.8 F 03/07/23 12:28 Pulse 92 03/07/23 12:28 Resp 19 03/07/23 12:28 BP 124/75 03/07/23 12:28 Pulse Ox 96 03/07/23 12:28 FiO2 Intake & Output 03/06/23 03/07/23 03/07/23 18:59 06:59 18:59 Intake Total 100 Balance 100 Weight 54.431 kg Intake: IV 100 Other: Voiding Method Toilet # Voids 3 1 - Exam GENERAL DESCRIPTION: An elderly female lying in bed in no distress RESPIRATORY SYSTEM: Unlabored breathing , decreased breath sounds at bases HEART: S1 S2 regular rate and rhythm , ABDOMEN: Soft , no tenderness EXTREMITIES: No edema feet - Labs CBC & Chem 7: 03/06/23 04:11 03/06/23 04:11 Labs: Microbiology - Last 24 Hours (Table) 03/03/23 20:55 Urine Culture - Final Urine,Catheterized Assessment and Plan (1) UTI (urinary tract infection) Current Visit: Yes Status: Acute Code(s): N39.0 - URINARY TRACT INFECTION, SITE NOT SPECIFIED SNOMED Code(s): 41279030 (2) Leukocytosis Current Visit: Yes Status: Acute Code(s): D72.829 - ELEVATED WHITE BLOOD CELL COUNT, UNSPECIFIED SNOMED Code(s): 980135294 Plan: 1patient with sepsis in this patient who did have a fever elevated white count source is likely UTI failing outpatient oral Keflex therapy and likely from enteric gram-negative pathogen CT abdominal pelvis did not mention any evidence of kidney stone or hydronephrosis 2the patient white count has normalized , Urine culture reported negative more likely because the patient was on antibiotic before coming to the hospital. 3keeping in mind improvement in her symptoms and resolution of the fever with Rocephin to continue in the short course of oral Ceftin on discharge Multiple questions concern answered Dictation was produced using [employer] dictation software. please excuse any grammatical, word or spelling errors. Time with Patient: Less than 30
--- NOTE | 2023-03-07 22:18 | P.DS ---
Providers Date of admission: 03/04/23 21:10 Attending physician: Baotol Garcia Consults: 03/04/23 20:24 Consult Physician Urgent Consulting Provider: David Castro Consult Reason/Comments: Upper GI bleed Do you want consulting provider notified?: Yes 03/05/23 11:09 Consult Physician Urgent Consulting Provider: Lissa Garzon Consult Reason/Comments: fever, recent uti Do you want consulting provider notified?: Yes Primary care physician: Yomi Montelongo [facility] Course: Diagnoses: Coffee ground vomitus, EGD showing linear erosions and ulcerations in the distal esophagus consistent with LA grade C reflux esophagitis with moderate hiatal hernia. Discharge on Prilosec and Carafate Fever with leukocytosis with possible mild sepsis suspected secondary to acute urinary tract infection versus other. Discharge on Ceftin with improvement Mild confusion could be metabolic/toxic encephalopathy. Resolved and back to baseline Reflux esophagitis Moderate hiatal hernia Left arm pain, numbness specific resolved completely Chronic kidney disease stage III Hypertension Mild protein calorie malnutrition Hospital course: This is a pleasant 72 years old female with past medical history of GERD/Reflux, Hypertension Patient last year had EGD on 02/09/2022 showing linearr Dear erosions and ulceration distal esophagus with LA grade a reflux esophagitis and moderate hiatal hernia. Patient was treated with Carafate plus Protonix and she showed interval improvement and Gen. surgery team for discharge. She tolerated that well with no problems. Her mentation was slightly altered on admission due to metabolic encephalopathy and that's improved, performed by at bedside yesterday and today. She has partially treated urinary tract infection as outpatient, she was treated with Rocephin and showed interval improvement on discharge she has no urinary symptoms, her mentation back to normal. Leukocytosis is improving and patient fever subsided. Patient will finish her course with oral Ceftin upon discharge per ID recommendation. Patient denies any other complaints Patient was eager to go home today. She called and the result to her that she wants to be discharged as she tolerates diet well 100% his last night when she had her dinner. When he asked the at bed side is strongly agreed with his that she needs to go home today. As well patient was cleared for discharge by both Gen. surgery team and infectious disease team. Patient will be discharged on Carafate and antibiotic as above. Problems and management plan were discussed with the patient and he verbalized understanding and acceptance Patient was found stable and can be discharged home in guarded prognosis however he needs follow-up as an outpatient. Patient was instructed to follow up with PCP within one week and patient agrees She was instructed to follow up with Dr. Banuelos in [address] Garzon in one week Patient states that she has all her home prescription that she does not need anymore. She declines physical therapy evaluation Physical exam Gen: patient is a AAOx3, no distress CVS: S1-S2, RRR, no murmur Lungs: B/L CTA, no wheezing Abdomen: soft, no distention, no tenderness, positive bowel sounds Extremity: no leg edema or induration Time spent more than 35 minutes Patient Condition at Discharge: Good Plan - Discharge Summary Discharge Rx Participant: Yes New Discharge Prescriptions: New Sucralfate [Carafate] 1 gm PO ACHS #120 tab cefUROXime axetiL [Ceftin] 500 mg PO BID 7 Days #14 tab Continue EPINEPHrine [Epipen 2-Maxime] 0.3 mg IM ONCE PRN #1 pack PRN Reason: Anaphylaxis Famotidine [Pepcid] 20 mg PO HS amLODIPine [Norvasc] 10 mg PO DAILY Omeprazole 40 mg PO HS Acetaminophen Tab [Tylenol] 500 mg PO Q6H PRN #24 tablet PRN Reason: Pain Gabapentin 300 mg PO BID PRN PRN Reason: Pain Losartan/Hydrochlorothiazide [Losartan-Hctz 100-12.5 mg Tab] 1 tab PO DAILY Furosemide [Lasix] 20 mg PO DAILY Famotidine [Pepcid] 20 mg PO HS Ondansetron Odt [Zofran ODT] 4 mg PO Q6H PRN PRN Reason: Nausea Discontinued ALPRAZolam [Xanax] 0.5 mg PO HS PRN PRN Reason: Anxiety Cephalexin [Keflex] 500 mg PO Q12HR Discharge Medication List EPINEPHrine [Epipen 2-Maxime] 0.3 mg IM ONCE PRN #1 pack 06/12/18 [Rx] Acetaminophen Tab [Tylenol] 500 mg PO Q6H PRN #24 tablet 11/02/21 [Rx] Famotidine [Pepcid] 20 mg PO HS 02/08/22 [History] Gabapentin 300 mg PO BID PRN 02/08/22 [History] Losartan/Hydrochlorothiazide [Losartan-Hctz 100-12.5 mg Tab] 1 tab PO DAILY 02/08/22 [History] Famotidine [Pepcid] 20 mg PO HS 03/04/23 [History] Furosemide [Lasix] 20 mg PO DAILY 03/04/23 [History] Omeprazole 40 mg PO HS 03/04/23 [History] Ondansetron Odt [Zofran ODT] 4 mg PO Q6H PRN 03/04/23 [History] amLODIPine [Norvasc] 10 mg PO DAILY 03/04/23 [History] Sucralfate [Carafate] 1 gm PO ACHS #120 tab 03/06/23 [Rx] cefUROXime axetiL [Ceftin] 500 mg PO BID 7 Days #14 tab 03/07/23 [Rx] Follow up Appointment(s)/Referral(s): David Castro MD [Medical Doctor] - 2 Weeks (follow up biopsy results (if available) with your surgeom please ) Yomi Montelongo DO [Primary Care Provider] - 1-2 days (we recommend to check your blood tests with your doctor in 2-3 days ) Mar Ferrell MD [STAFF PHYSICIAN] - 4 Weeks Lissa Garzon MD [STAFF PHYSICIAN] - 10 Days Activity/Diet/Wound Care/Special Instructions: regular diet as tolerated activity is restricted till you see your doctor Discharge Disposition: HOME SELF-CARE
== END 2023-03-07 17:54 | disposition home or self-care (01) | DRG 871 ==
LOC: EC 11:09 → 4SSUR 21:10
PROVIDERS: ADMIT Hospitalist; ATTEND Hospitalist
PROC: 0DB78ZX Excision of Stomach, Pylorus, Via Natural or Artificial Opening Endoscopic, Diagnostic (ICD-10-PCS; principal; 2023-03-06 08:30)
PROC: 0DB58ZX Excision of Esophagus, Via Natural or Artificial Opening Endoscopic, Diagnostic (ICD-10-PCS; principal; 2023-03-06 08:30)
DX: A41.9 Sepsis, unspecified organism (principal); G93.41 Metabolic encephalopathy; K22.11 Ulcer of esophagus with bleeding; K21.01 Gastro-esophageal reflux disease with esophagitis, with bleeding; E44.1 Mild protein-calorie malnutrition; N12 Tubulo-interstitial nephritis, not specified as acute or chronic; M79.602 Pain in left arm; M54.9 Dorsalgia, unspecified; G89.29 Other chronic pain; K44.9 Diaphragmatic hernia without obstruction or gangrene; Z68.20 Body mass index [BMI] 20.0-20.9, adult; G43.909 Migraine, unspecified, not intractable, without status migrainosus; I12.9 Hypertensive chronic kidney disease with stage 1 through stage 4 chronic kidney disease, or unspecified chronic kidney disease; N18.30 Chronic kidney disease, stage 3 unspecified; Z79.899 Other long term (current) drug therapy; Z82.49 Family history of ischemic heart disease and other diseases of the circulatory system; Z87.19 Personal history of other diseases of the digestive system; Z87.11 Personal history of peptic ulcer disease; Z87.440 Personal history of urinary (tract) infections; Z28.21 Immunization not carried out because of patient refusal; Z88.5 Allergy status to narcotic agent; Z96.60 Presence of unspecified orthopedic joint implant; Z71.3 Dietary counseling and surveillance
CPT/HCPCS: 36415; 43239; 51702; 70450; 71045; 74176; 80048; 80053; 81001; 82140; 82272; 83605; 84484; 85025; 85610; 85730; 86850; 86900; 86901; 87086; 88305; 88312; 93005; 96361; 96374; 96375; 96376; 99285

== ENCOUNTER → 2023-05-23 | Outpatient (CLI) | payer MEDICARE ==
[2023-05-23 16:15] LABS: Blood Urea Nitrogen 31.6 mg/dL (9.0-27.0); Carbon Dioxide 25.4 mmol/L (21.6-31.8); Chloride 97 mmol/L (96-109); HCT 35.5 % (37.2-46.3); HGB 11.3 g/dL (12.0-15.0); MCH 29.5 pg (27.0-32.0); MCHC 31.8 g/dL (32.0-37.0); MCV 92.7 FL (80.0-97.0); Mean Platelet Volume 10.5 FL (9.5-12.2); NRBC Per 100 WBC 0 X 10*3/uL (0.00-0.01); Platelet Count 273 X 10*3/uL (140-440); Potassium 4.3 mmol/L (3.5-5.5); RBC 3.83 X 10*6/uL (4.10-5.20); RDW 14.3 % (11.5-14.5); Sodium 136 mmol/L (135-145); WBC 6.19 X 10*3/uL (4.50-10.00)
== END | disposition home or self-care (01) ==
LOC: LABWHC1 11:19
PROVIDERS: ATTEND Internal Medicine Clinical Cardiac Electrophysiology
DX: Z01.812 Encounter for preprocedural laboratory examination (principal); I38 Endocarditis, valve unspecified; I27.20 Pulmonary hypertension, unspecified
CPT/HCPCS: 36415; 80051; 82565; 84520; 85027

== ENCOUNTER 2023-05-26 15:17 | Day surgery (SDC) | payer MEDICARE ==
[2023-05-24 14:53] VITALS: BMI 22.2
[2023-05-26 16:18] VITALS: RESP 16
[2023-05-26] MEDS: SODIUM CHLORIDE 0.9% 900 ML IV ONE (16:35)
[2023-05-26] MEDS ORDERED: LIDOCAINE 1% INJ 10MG/ML (20 ML MDV) ONE (16:41)
[2023-05-26] MEDS: LIDOCAINE 1% INJ 10MG/ML (20 ML MDV) SQ ONE (16:58)
[2023-05-26] MEDS ORDERED: ACETAMINOPHEN TAB 325 MG TAB PO PRN (17:25)
[2023-05-26 17:29] LABS: O2 Sat Blood Gas 69.1 %
[2023-05-26 17:31] LABS: O2 Sat Blood Gas 72.3 %
[2023-05-26 17:33] LABS: O2 Sat Blood Gas 75.3 %
[2023-05-26 17:34] LABS: O2 Sat Blood Gas 68.5 %
[2023-05-26 17:36] LABS: O2 Sat Blood Gas 65.7 %
--- NOTE | 2023-05-26 17:41 | P.EPPROC ---
- EP Procedure Note Electrophysiology Procedure Note: Right heart cath Indication Elevated RVSP on 2D echo Moderate tricuspid regurgitation Mild to moderate mitral regurgitation Details Venous sheath placed in the right femoral vein. [place] catheter floated in the right heart Pressure measurements and oxygen saturation measured at each step Pulmonary capillary wedge position: 16/9, mean 7 mmHg Oxygen saturation = 75% Pulmonary artery position 28/9, mean 16 mmHg Oxygen saturation= 72% RV position 28/0/11 millimeters of mercury Oxygen saturation= 65.7% RA position 9/6, mean 5 mmHg Oxygen saturation = 68.5% Impression PA pressures at the upper end of normal Pulmonary wedge pressure normal RV EDP normal CVP normal No oxygen step up
[2023-05-26 17:57] VITALS: TEMP 98.2
[2023-05-26] MEDS: SODIUM CHLORIDE 0.9% 1,000 ML IV SCH (17:59)
[2023-05-26] MEDS: PANTOPRAZOLE 40 MG TABLET PO SCH (20:34)
[2023-05-26] MEDS: GABAPENTIN 300 MG CAP PO SCH (20:34)
[2023-05-26] MEDS: amLODIPine 10 MG TAB PO SCH (20:34)
[2023-05-26 21:40] VITALS: BP 136/70; PULSE 60
== END 2023-05-26 21:00 | disposition home or self-care (01) ==
LOC: CATHEP 15:17 → 6NMEDSUR 17:20 → CATHEP 21:00
PROVIDERS: ATTEND Internal Medicine Clinical Cardiac Electrophysiology
DX: I08.1 Rheumatic disorders of both mitral and tricuspid valves (principal); I10 Essential (primary) hypertension; E78.5 Hyperlipidemia, unspecified; E78.00 Pure hypercholesterolemia, unspecified; Z88.5 Allergy status to narcotic agent; I27.20 Pulmonary hypertension, unspecified; Z79.899 Other long term (current) drug therapy
CPT/HCPCS: 93451; 85018; 82810; C1760; J2001

== ENCOUNTER → 2023-10-19 | Outpatient (CLI) | payer MEDICARE | END | disposition home or self-care (01) | LOC: LABPRL 11:30 | PROVIDERS: ATTEND Family Medicine | DX: M19.071 Primary osteoarthritis, right ankle and foot (principal); M79.671 Pain in right foot; M79.672 Pain in left foot | CPT/HCPCS: 82306; 84550; 85652; 86038; 86140; 86200 ==

== ENCOUNTER → 2024-02-10 | Outpatient (CLI) | payer MEDICARE ==
--- NOTE | 2024-02-13 12:12 | MM ---
Reason for Exam: Screening (asymptomatic). Last mammogram was performed 13 year(s) and 4 month(s) ago. Patient History: Menarche at age 14. First Full-Term at age 20. Left ovary removed at age 54. Right ovary removed at age 54. Hysterectomy at age 54. Postmenopausal. Endometrial cancer, age 54. Currently using Estrogen, beginning at age 54 for 3 years. Mother had breast cancer, age 50. Risk Values: Melissa 5 year model risk: 3.2%. NCI Lifetime model risk: 8.8%. Prior Study Comparison: 06/26/2007 Bilateral Screening Mammogram, [facility]. 08/07/2008 Bilateral Screening Mammogram, [facility]. 10/09/2010 Bilateral Screening Mammogram, [facility]. Tissue Density: The breasts are almost entirely fatty. Findings: Analyzed By CAD. Right breast: There is no suspicious group of microcalcifications or new suspicious mass. Benign-appearing calcifications right breast. Left breast: There is no suspicious group of microcalcifications or new suspicious mass. Benign-appearing calcifications left breast. Overall Assessment: Benign, BI-RAD 2 Management: Screening Mammogram of both breasts in [address] [facility] will attempt to contact patient to return for supplemental views and ultrasound if indicated. Patient should continue monthly self-breast exams. A clinical breast exam by your physician is recommended on an annual basis. This exam should not preclude additional follow-up of suspicious palpable abnormalities. Note on Melissa scores and lifetime risk: 1. A Melissa score greater than 3% is considered moderate risk. If this is the case, consider specialist referral to assess eligibility for a risk reducing agent. 2. If overall lifetime risk for the development of breast cancer is 20% or higher, the patient may qualify for future screening with alternating mammogram and breast MRI. [facility], , 02/13/2024 12:09 PM. Electronically signed and approved by: Wili Gutierrez DO
== END | disposition home or self-care (01) ==
LOC: RADMAMWWP 16:19
PROVIDERS: ATTEND Family Medicine
DX: Z12.31 Encounter for screening mammogram for malignant neoplasm of breast (principal); Z90.722 Acquired absence of ovaries, bilateral; Z78.0 Asymptomatic menopausal state; Z80.3 Family history of malignant neoplasm of breast; R92.313 Mammographic fatty tissue density, bilateral breasts
CPT/HCPCS: 77063; 77067

== ENCOUNTER 2024-02-13 08:40 | Day surgery (SDC) | payer MEDICARE ==
[2024-02-10 11:14] VITALS: BMI 21.4
[2024-02-13 09:33] VITALS: RESP 16; TEMP 97.9
[2024-02-13] MEDS: LACTATED RINGERS 1,000 ML IV SCH (09:33)
[2024-02-13] MEDS: IV FLUID CONTINUATION 1,000 ML IV ONE (09:33)
[2024-02-13] MEDS ORDERED: PROPOFOL 10 MG/ML 20 ML VIAL IV ONE (09:41)
--- NOTE | 2024-02-13 09:58 | P.PCN ---
Date of Procedure: 02/13/24 Preoperative Diagnosis: Rectal bleeding Postoperative Diagnosis: Internal hemorrhoids Procedure(s) Performed: Colonoscopy Anesthesia: MAC Surgeon: Sharmin Vasquez Pathology: none sent Condition: stable Disposition: same day Indications for Procedure: 73-year-old female with recent history of rectal bleeding. She has had previous colonoscopy with no significant findings. No family history of colon cancer. Risks, benefits and alternatives were discussed. Operative Findings: Overall normal-appearing colon with internal hemorrhoids Description of Procedure: The patient was brought to the endoscopy suite and placed in left lateral decubitus position and adequate sedation was achieved using conscious sedation. Digital rectal exam was performed and mild internal hemorrhoids were palpated. An endoscope was then placed in the rectum and advanced to the cecum as identified by landmarks including the appendiceal orifice and the ileocecal valve. The prep was good. The colonoscope was then slowly withdrawn, examining for any mucosal abnormalities. The cecum, ascending, transverse, descending and sigmoid colon were visualized adequately. There were no large neoplastic lesions noted throughout the colon. No obvious polyps noted throughout the colon. No diverticulosis noted. Hemostasis was maintained. Retroflexion was performed in the rectum and internal hemorrhoids. Excess air was removed, the colonoscope withdrawn and the procedure terminated. The patient was then transferred to the recovery unit in stable condition. Repeat colonoscopy should be performed in based on symptoms due to the patient's age.
[2024-02-13 10:13] VITALS: BP 134/80; PULSE 53
== END 2024-02-13 10:30 | disposition home or self-care (01) ==
LOC: ORWHC2ENDO 08:40
PROVIDERS: ATTEND Surgery
DX: K62.5 Hemorrhage of anus and rectum (principal); K64.8 Other hemorrhoids; I10 Essential (primary) hypertension; K21.9 Gastro-esophageal reflux disease without esophagitis; Z79.899 Other long term (current) drug therapy; Z90.710 Acquired absence of both cervix and uterus; Z98.890 Other specified postprocedural states; Z88.5 Allergy status to narcotic agent; Z91.030 Bee allergy status
CPT/HCPCS: 45378; J2704

== ENCOUNTER 2024-08-24 13:57 | Emergency (ER) | payer MEDICARE ==
[2024-08-24 14:04] VITALS: TEMP 97.4
--- NOTE | 2024-08-24 14:48 | ED ---
General Adult HPI - General Source: patient, family, RN notes reviewed Mode of arrival: wheelchair Limitations: no limitations <Nuvia Izquierdo - Last Filed: 08/24/24 15:32> <Swati Soares - Last Filed: 08/24/24 17:47> - General Chief complaint: Weakness Stated complaint: Abn BP Time Seen by Provider: 08/24/24 14:07 - History of Present Illness Initial comments: 74-year-old female presents to the emergency department for evaluation of "low blood pressure." Patient states that symptoms have been going on for around 1 week. She notes that she is taking her blood pressures at home and was getting low readings. Patient also notes that she went to her primary care provider's office on . She was prescribed a medication for her blood pressure which she started this morning. The medication that the patient has with her is losartan 100 mg. Patient endorses headache. She also notes mild shortness of b reath especially with activities. She denies any fever, chills, nausea, vomiting, abdominal pain, urinary symptoms. (Nuvia Izquierdo) - Related Data Home Medications Medication Instructions Recorded Confirmed Gabapentin 300 mg PO BID 02/08/22 02/10/24 Losartan/Hydrochlorothiazide 1 tab PO DAILY 02/08/22 02/10/24 [Losartan-Hctz 100-12.5 mg Tab] Famotidine [Pepcid] 20 mg PO HS 03/04/23 02/10/24 Furosemide [Lasix] 20 mg PO Q48H 03/04/23 02/10/24 Omeprazole 40 mg PO HS 03/04/23 02/10/24 Previous Rx's Medication Instructions Recorded EPINEPHrine [Epipen 2-Maxime] 0.3 mg IM ONCE PRN #1 pack 06/12/18 Sucralfate [Carafate] 1 gm PO ACHS #120 tab 03/06/23 Allergies Allergy/AdvReac Type Severity Reaction Status Date / Time morphine Allergy Itching Verified 08/24/24 14:03 venom-honey bee Allergy Anaphylaxis Verified 08/24/24 14:03 [bee venom (honey bee)] Review of Systems ROS Other: All systems not noted in ROS Statement are negative. <Nuvia Izquierdo - Last Filed: 08/24/24 15:32> ROS Other: All systems not noted in ROS Statement are negative. <Swati Soares - Last Filed: 08/24/24 17:47> ROS Statement: Those systems with pertinent positive or pertinent negative responses have been documented in the HPI. Past Medical History Past Medical History: GERD/Reflux, Hypertension Additional Past Medical History / Comment(s): TYLENOL OVERDOSE YEARS AGO,"I DIDN'T PAY ATTENTION TO DOSAGE BECAUSE MY BACK PAIN WAS SO BAD". 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 INOPERABLE LOWER BACK FRACTURE, CHRONIC BACK PAIN (FALL FROM LADDER, ABOUT 20 YEARS). History of Any Multi-Drug Resistant Organisms: None Reported Past Surgical History: Back Surgery, Joint Replacement, Orthopedic Surgery Additional Past Surgical History / Comment(s): TOTAL LEFT ARTHROPLASTY X2. D&C X5, TOTAL HYSTERECTOMY, RIGHT 5TH FINGER CYST REMOVAL, BILATERAL EYELID LIFT SURGERY. ORIF RIGHT FOOT Past Anesthesia/Blood Transfusion Reactions: No Reported Reaction Past Psychological History: No Psychological Hx Reported Smoking Status: Never smoker Past Alcohol Use History: Occasional - Past Family History Mother Family Medical History: Diabetes Mellitus, Myocardial Infarction ([place]) Additional Family Medical History / Comment(s): pts. mother at age 71 from an [place] Son(s) Family Medical History: Diabetes Mellitus Father Family Medical History: Liver Disease Additional Family Medical History / Comment(s): PTS. FATHER AT AGE 47 SECONDARY TO ETOH <Nuvia Izquierdo - Last Filed: 08/24/24 15:32> General Exam Limitations: no limitations General appearance: alert, in no apparent distress Head exam: Present: atraumatic, normocephalic, normal inspection Eye exam: Present: normal appearance, PERRL, EOMI. Absent: scleral icterus, conjunctival injection, periorbital swelling ENT exam: Present: normal exam, mucous membranes moist Neck exam: Present: normal inspection, full ROM. Absent: tenderness, meningismus, lymphadenopathy Respiratory exam: Present: normal lung sounds bilaterally. Absent: respiratory distress, wheezes, rales, rhonchi, stridor Cardiovascular Exam: Present: regular rate, normal rhythm, normal heart sounds. Absent: systolic murmur, diastolic murmur, rubs, gallop, clicks GI/Abdominal exam: Present: soft. Absent: distended, tenderness, guarding, rebound, rigid Extremities exam: Present: normal inspection, full ROM, normal capillary refill. Absent: tenderness, pedal edema, joint swelling, calf tenderness Back exam: Present: normal inspection Neurological exam: Present: alert, oriented X3 Psychiatric exam: Present: normal affect, normal mood Skin exam: Present: warm, dry, intact, normal color. Absent: rash <Nuvia Izquierdo - Last Filed: 08/24/24 15:32> Course Vital Signs 08/24/24 08/24/24 13:59 14:34 Temperature 97.4 F L Pulse Rate 71 67 Respiratory 18 14 Rate Blood Pressure 123/77 134/71 O2 Sat by Pulse 99 98 Oximetry EKG Findings - EKG Results: EKG: interpreted by ERMD (EKG reveals normal sinus rhythm with no acute ST changes. Ventricular rate 60 bpm, CO interval 172, QRS duration 91, QT/QTc 447/447) <Swait Soares - Last Filed: 08/24/24 17:47> Medical Decision Making <Nuvia Izquierdo - Last Filed: 08/24/24 15:32> - Lab Data Result diagrams: 08/24/24 15:37 08/24/24 15:37 <Swati Soares - Last Filed: 08/24/24 17:47> - Medical Decision Making Was pt. sent in by a medical professional or institution (, PA, [employer], urgent care, hospital, or custodial...) When possible be specific @ -[No] Did you speak to anyone other than the patient for history (EMS, parent, family, police, friend...)? What history was obtained from this source @ -[No] Did you review nursing and triage notes (agree or disagree)? Why? @ -[I reviewed and agree with nursing and triage notes] Were old charts reviewed (outside hosp., previous admission, EMS record, old EKG, old radiological studies, urgent care reports/EKG's, custodial records)? Report findings @ -[No old charts were reviewed] Differential Diagnosis (chest pain, altered mental status, abdominal pain women, abdominal pain men, vaginal bleeding, weakness, fever, dyspnea, syncope, headache, dizziness, GI bleed, back pain, seizure, CVA, palpatations, mental health, musculoskeletal)? @ -[Differential Weakness: Hypoglycemia, shock, sepsis, hyponatremia, anemia, infection, [place], ETOH, adverse medicine reaction, overdose, stroke, this is not meant to be an all-inclusive list. ] EKG interpreted by me (3pts min.). @ -[As above] X-rays interpreted by me (1pt min.). @ -[None done] CT interpreted by me (1pt min.). @ -[None done] U/S interpreted by me (1pt. min.). @ -[None done] What testing was considered but not performed or refused? (CT, X-rays, U/S, labs)? Why? @ -[None] What meds were considered but not given or refused? Why? @ -[None] Did you discuss the management of the patient with other professionals (professionals i.e. DrRed, PA, [employer], lab, RT, psych nurse, certified social workers in health care, utility bagger, teacher, military police officer, family independence case manager)? Give summary @ -[No] Was smoking cessation discussed for >3mins.? @ -[No] Was critical care preformed (if so, how long)? @ -[No] Were there social determinants of health that impacted care today? How? (Amanuel elessness, low income, unemployed, alcoholism, drug addiction, transportation, low edu. Level, literacy, decrease access to med. care, care home, rehab)? @ -[No] Was there de-escalation of care discussed even if they declined (Discuss DNR or withdrawal of care, Hospice)? DNR status @ -[No] What co-morbidities impacted this encounter? (DM, HTN, Smoking, COPD, CAD, Cancer, CVA, ARF, Chemo, Hep., AIDS, mental health diagnosis, sleep apnea, morbid obesity)? @ -[None] Was patient admitted / discharged? Hospital course, mention meds given and route, prescriptions, significant lab abnormalities, going to OR and other pertinent info. @ -[hospital course] Undiagnosed new problem with uncertain prognosis? @ -[No] Drug Therapy requiring intensive monitoring for toxicity (Heparin, Nitro, Insulin, Cardizem)? @ -[No] Were any procedures done? @ -[No] Diagnosis/symptom? @ -[default] Acute, or Chronic, or Acute on Chronic? @ -[default] Uncomplicated (without systemic symptoms) or Complicated (systemic symptoms)? @ -[default] Side effects of treatment? @ -[No] Exacerbation, Progression, or Severe Exacerbation? @ -[No] Poses a threat to life or bodily function? How? (Chest pain, [place], [place], pneumonia, PE, COPD, DKA, ARF, appy, cholecystitis, CVA, Diverticulitis, Homicidal, Suicidal, threat to staff... and all critical care pts) @ -[No] (KathleenjadNuvia) Was pt. sent in by a medical professional or institution ([employer], [employer], urgent care, hospital, or custodial...) When possible be specific @ -No Did you speak to anyone other than the patient for history (EMS, parent, family, police, friend...)? What history was obtained from this source @ -No Did you review nursing and triage notes (agree or disagree)? Why? @ -I reviewed and agree with nursing and triage notes Were old charts reviewed (outside hosp., previous admission, EMS record, old EKG, old radiological studies, urgent care reports/EKG's, custodial records)? Report findings @ -No old charts were reviewed Differential Diagnosis (chest pain, altered mental status, abdominal pain women, abdominal pain men, vaginal bleeding, weakness, fever, dyspnea, syncope, headache, dizziness, GI bleed, back pain, seizure, CVA, palpatations, mental health, musculoskeletal)? @ -Differential Weakness: Hypoglycemia, shock, sepsis, hyponatremia, anemia, infection, [place], ETOH, adverse medicine reaction, overdose, stroke, this is not meant to be an all-inclusive list. EKG interpreted by me (3pts min.). @ -As above X-rays interpreted by me (1pt min.). @ -None done CT interpreted by me (1pt min.). @ -CT brain reveals no acute process U/S interpreted by me (1pt. min.). @ -None done What testing was considered but not performed or refused? (CT, X-rays, U/S, labs)? Why? @ -None What meds were considered but not given or refused? Why? @ -None Did you discuss the management of the patient with other professionals (professionals i.e. [employer], [employer], lab, RT, psych nurse, certified social workers in health care, utility bagger, teacher, military police officer, family independence case manager)? Give summary @ -No Was smoking cessation discussed for >3mins.? @ -No Was critical care preformed (if so, how long)? @ -No Were there social determinants of health that impacted care today? How? (Homelessness, low income, unemployed, alcoholism, drug addiction, transportation, low edu. Level, literacy, decrease access to med. care, care home, rehab)? @ -No Was there de-escalation of care discussed even if they declined (Discuss DNR or withdrawal of care, Hospice)? DNR status @ -No What co-morbidities impacted this encounter? (DM, HTN, Smoking, COPD, CAD, Cancer, CVA, ARF, Chemo, Hep., AIDS, mental health diagnosis, sleep apnea, morbid obesity)? @ -None Was patient admitted / discharged? Hospital course, mention meds given and route, prescriptions, significant lab abnormalities, going to OR and other pertinent info. @ -Discharge. 74-year-old female presenting for concerns of low blood pressure over the past several days. Patient was signed out to me by Nuvia Izquierdo PA-C pending urinalysis, EKG, and disposition. Patient is normotensive during two ER readings. Denies chest pain, shortness of breath, black or tarry stools, nausea, vomiting. Patient is well-appearing, no acute distress. Lab work remarkable for elevated BUN of 83, creatinine 1.3 improved from previous value. EKG reveals normal sinus rhythm with no acute ST changes. CT brain reveals no acute process. Discussed results with patient. Patient states she is feeling well and would like to be discharged. Advised close follow-up with PCP on Tuesday. Strict return precautions discussed and patient verbalizes understanding. Case was discussed with my ED attending Dr. Stringer. Undiagnosed new problem with uncertain prognosis? @ -No Drug Therapy requiring intensive monitoring for toxicity (Heparin, Nitro, Insulin, Cardizem)? @ -No Were any procedures done? @ -No Diagnosis/symptom? @ -Normal blood pressure reading, weakness Acute, or Chronic, or Acute on Chronic? @ -Acute Uncomplicated (without systemic symptoms) or Complicated (systemic symptoms)? @ -Complicated Side effects of treatment? @ -No Exacerbation, Progression, or Severe Exacerbation? @ -No Poses a threat to life or bodily function? How? (Chest pain, [place], [place], pneumonia, PE, COPD, DKA, ARF, appy, cholecystitis, CVA, Diverticulitis, Homicidal, Suicidal, threat to staff... and all critical care pts) @ -Unlikely at this time (Swati Soares) - Lab Data Lab Results 08/24/24 08/24/24 08/24/24 Range/Units 15:37 15:37 15:37 WBC 9.07 (4.50-10.00) 10*3/uL RBC 3.87 L (4.10-5.20) 10*6/uL Hgb 11.1 L (12.0-15.0) g/dL Hct 32.9 L (37.2-46.3) % MCV 85.0 (80.0-97.0) fL MCH 28.7 (27.0-32.0) pg MCHC 33.7 (32.0-37.0) g/dL Plt Count 290 (140-440) 10*3/uL MPV 10.2 (9.5-12.2) fL Immature Gran % (Auto) 0.3 % Neutrophils % 66.3 % Lymphocytes % 18.3 % Monocytes % 11.7 % Eosinophils % 2.5 % Basophils % 0.9 % Immature Gran # 0.03 (0.00-0.04) 10*3/uL Neutrophils # 6.01 (1.80-7.70) 10*3/uL Lymphocytes # 1.66 (0.90-5.00) 10*3/uL Monocytes # 1.06 H (0.20-1.00) 10*3/uL Eosinophils # 0.23 (0.04-0.35) 10*3/uL Basophils # 0.08 (0.00-0.10) 10*3/uL PT 10.4 (10.0-12.5) sec INR 0.9 (<1.2) APTT 22.6 (22.0-30.0) sec Sodium 133 L (137-145) mmol/L Potassium 3.8 (3.5-5.1) mmol/L Chloride 95 L (98-107) mmol/L Carbon Dioxide 27 (22-30) mmol/L Anion Gap 11 mmol/L BUN 83 H (7-17) mg/dL Creatinine 1.39 H (0.52-1.04) mg/dL Est GFR (CKD-EPI)AfAm 44 (>60 ml/min/1.73 sqM) Est GFR (CKD-EPI)NonAf 38 (>60 ml/min/1.73 sqM) Glucose 101 H (74-99) mg/dL Calcium 10.5 H (8.4-10.2) mg/dL Magnesium 2.1 (1.6-2.3) mg/dL Total Bilirubin 0.8 (0.2-1.3) mg/dL AST 33 (14-36) U/L ALT 16 (4-34) U/L Alkaline Phosphatase 80 (38-126) U/L Total Protein 7.7 (6.3-8.2) g/dL Albumin 4.6 (3.5-5.0) g/dL Urine Color Urine Appearance (Clear) Urine pH (5.0-8.0) Ur Specific [place] (1.001-1.035) Urine Protein (Negative) Urine Glucose (UA) (Negative) Urine Ketones (Negative) Urine Blood (Negative) Urine Nitrite (Negative) Urine Bilirubin (Negative) Urine Urobilinogen (<2.0) mg/dL Ur Leukocyte Esterase (Negative) Urine Opiates Screen (NotDetected) Ur Oxycodone Screen (NotDetected) Urine Methadone Screen (NotDetected) Ur Barbiturates Screen (NotDetected) U Tricyclic Antidepress (NotDetected) Ur Phencyclidine Scrn (NotDetected) Ur Amphetamines Screen (NotDetected) U Methamphetamines Scrn (NotDetected) U Benzodiazepines Scrn (NotDetected) Urine Cocaine Screen (NotDetected) U Marijuana (THC) Screen (NotDetected) 08/24/24 Range/Units 16:11 WBC (4.50-10.00) 10*3/uL RBC (4.10-5.20) 10*6/uL Hgb (12.0-15.0) g/dL Hct (37.2-46.3) % MCV (80.0-97.0) fL MCH (27.0-32.0) pg MCHC (32.0-37.0) g/dL Plt Count (140-440) 10*3/uL MPV (9.5-12.2) fL Immature Gran % (Auto) % Neutrophils % % Lymphocytes % % Monocytes % % Eosinophils % % Basophils % % Immature Gran # (0.00-0.04) 10*3/uL Neutrophils # (1.80-7.70) 10*3/uL Lymphocytes # (0.90-5.00) 10*3/uL Monocytes # (0.20-1.00) 10*3/uL Eosinophils # (0.04-0.35) 10*3/uL Basophils # (0.00-0.10) 10*3/uL PT (10.0-12.5) sec INR (<1.2) APTT (22.0-30.0) sec Sodium (137-145) mmol/L Potassium (3.5-5.1) mmol/L Chloride (98-107) mmol/L Carbon Dioxide (22-30) mmol/L Anion Gap mmol/L BUN (7-17) mg/dL Creatinine (0.52-1.04) mg/dL Est GFR (CKD-EPI)AfAm (>60 ml/min/1.73 sqM) Est GFR (CKD-EPI)NonAf (>60 ml/min/1.73 sqM) Glucose (74-99) mg/dL Calcium (8.4-10.2) mg/dL Magnesium (1.6-2.3) mg/dL Total Bilirubin (0.2-1.3) mg/dL AST (14-36) U/L ALT (4-34) U/L Alkaline Phosphatase (38-126) U/L Total Protein (6.3-8.2) g/dL Albumin (3.5-5.0) g/dL Urine Color Colorless Urine Appearance Clear (Clear) Urine pH 6.0 (5.0-8.0) Ur Specific [place] 1.008 (1.001-1.035) Urine Protein Negative (Negative) Urine Glucose (UA) Negative (Negative) Urine Ketones Negative (Negative) Urine Blood Negative (Negative) Urine Nitrite Negative (Negative) Urine Bilirubin Negative (Negative) Urine Urobilinogen <2.0 (<2.0) mg/dL Ur Leukocyte Esterase Negative (Negative) Urine Opiates Screen Not Detected (NotDetected) Ur Oxycodone Screen Not Detected (NotDetected) Urine Methadone Screen Not Detected (NotDetected) Ur Barbiturates Screen Not Detected (NotDetected) U Tricyclic Antidepress Not Detected (NotDetected) Ur Phencyclidine Scrn Not Detected (NotDetected) Ur Amphetamines Screen Detected H (NotDetected) U Methamphetamines Scrn Not Detected (NotDetected) U Benzodiazepines Scrn Detected H (NotDetected) Urine Cocaine Screen Not Detected (NotDetected) U Marijuana (THC) Screen Not Detected (NotDetected) Disposition <Nuvia Izquierdo - Last Filed: 08/24/24 15:32> Is patient prescribed a controlled substance at d/c from ED?: No Time of Disposition: 17:34 <Swati Soares - Last Filed: 08/24/24 17:47> Clinical Impression: Weakness Disposition: HOME SELF-CARE Condition: Stable Additional Instructions: Follow-up with your PCP on Tuesday. Please return to the Emergency Department if symptoms worsen or any other concerns. Referrals: Yomi Montelongo DO [Primary Care Provider] - 1-2 days
[2024-08-24] MEDS: SODIUM CHLORIDE 0.9% 1,000 ML IV ONE (15:37)
[2024-08-24 15:43] LABS: Basophils # (A) 0.08 10*3/uL (0.00-0.10); Basophils % (A) 0.9 %; Eosinophils # (A) 0.23 10*3/uL (0.04-0.35); Eosinophils % (A) 2.5 %; HCT 32.9 % (37.2-46.3); HGB 11.1 g/dL (12.0-15.0); Lymphocytes # (A) 1.66 10*3/uL (0.90-5.00); Lymphocytes % (A) 18.3 %; MCH 28.7 pg (27.0-32.0); MCHC 33.7 g/dL (32.0-37.0); Mean Platelet Volume 10.2 fL (9.5-12.2); Monocytes # (A) 1.06 10*3/uL (0.20-1.00); Monocytes % (A) 11.7 %; Neutrophils # (A) 6.01 10*3/uL (1.80-7.70); Neutrophils % (A) 66.3 %; Platelet Count 290 10*3/uL (140-440); RBC 3.87 10*6/uL (4.10-5.20); RDW 17.2 % (11.5-14.5); WBC 9.07 10*3/uL (4.50-10.00)
[2024-08-24 15:57] LABS: ALT 16 U/L (4-34); African American GFR (CKD) 44 (>60 ml/min/1.73 sqM); Albumin 4.6 g/dL (3.5-5.0); Anion Gap 11 mmol/L; Blood Urea Nitrogen 83 mg/dL (7-17); Calcium 10.5 mg/dL (8.4-10.2); Carbon Dioxide 27 mmol/L (22-30); Chloride 95 mmol/L (98-107); Glucose 101 mg/dL (74-99); INR 0.9 (<1.2); Non-African American GFR(CKD) 38 (>60 ml/min/1.73 sqM); Partial Thromboplastin Time 22.6 sec (22.0-30.0); Prothrombin Time 10.4 sec (10.0-12.5); Sodium 133 mmol/L (137-145); Total Bilirubin 0.8 mg/dL (0.2-1.3); Total Protein 7.7 g/dL (6.3-8.2)
[2024-08-24 16:03] LABS: AST 33 U/L (14-36); Alkaline Phosphatase 80 U/L (38-126); Magnesium 2.1 mg/dL (1.6-2.3); Potassium 3.8 mmol/L (3.5-5.1)
--- NOTE | 2024-08-24 16:10 | CT ---
EXAMINATION TYPE: CT brain wo con DATE OF EXAM: 08/24/2024 COMPARISON: 03/05/2023 CLINICAL INDICATION: Female, 74 years old with history of headache; PHH, headache, hypotensive CT DLP: 1104 mGycm Automated exposure control for dose reduction was used. Findings: The ventricles, basal cisterns and sulci over convexities are mildly enlarged consistent with moderat e generalized atrophy, appropriate for the patient's age. There is mild decreased density in the periventricular white matter consistent with chronic ischemic white matter demyelination. There is no mass effect or shift of midline structures. There is no acute intra or extra-axial hemorrhage. The posterior fossa including the brainstem, fourth ventricle and cerebellopontine angles appear tori sly normal. The intraorbital contents appear normal symmetric Visualized paranasal sinuses and mastoid air cells are well aerated. Calvarium is intact. IMPRESSION: 1. Age appropriate senescent changes as described above. 2. No acute bleed or mass effect. 3. No interval change compared to 03/05/2023 [facility], , 08/24/2024 4:07 PM
[2024-08-24 16:21] LABS: Appearance,Urine Clear (Clear); Bilirubin,Urine Negative (Negative); Blood,Urine Negative (Negative); Color,Urine Colorless; Glucose,Urine (UA) Negative (Negative); Ketones,Urine Negative (Negative); Leukocyte Esterase,Urine Negative (Negative); Nitrite,Urine Negative (Negative); Protein,Urine Negative (Negative); Specific Gravity,Urine 1.008 (1.001-1.035); Urobilinogen,Urine <2.0 mg/dL (<2.0)
[2024-08-24 16:32] LABS: Amphetamine Screen,Urine Detected (NotDetected); Barbiturate Screen,Urine Not Detected (NotDetected); Benzodiazepines Screen,Urine Detected (NotDetected); Cocaine Screen,Urine Not Detected (NotDetected); Methadone Screen, Urine Not Detected (NotDetected); Opiate Screen,Urine Not Detected (NotDetected); Oxycodone Screen, Urine Not Detected (NotDetected); Phencyclidine Screen,Urine Not Detected (NotDetected); Tricyclic Antidepressant,Urine Not Detected (NotDetected); Urn Cannabinoid Scrn Not Detected (NotDetected)
[2024-08-24 18:06] VITALS: BP 128/85; PULSE 65; RESP 16
== END 2024-08-24 18:06 | disposition home or self-care (01) ==
LOC: EC 13:57
DX: R53.1 Weakness (principal); Z88.5 Allergy status to narcotic agent; Z91.030 Bee allergy status
CPT/HCPCS: 36415; 70450; 80053; 80306; 81003; 83735; 85025; 85610; 85730; 93005; 96360; 99285